=== PATIENT | female | born 1935 | race Caucasian/White ===

== ENCOUNTER 2018-02-16 05:31 | Inpatient (IN) ==
[2018-02-16] MEDS ORDERED: Chlorhexidine Gluconate 2% 1 Pack (2 Cloths) TOPICAL ONE (05:57)
[2018-02-16] MEDS ORDERED: Metoprolol Tartrate 25 MG Tablet PO ONE (05:57)
[2018-02-16] MEDS ORDERED: Sodium Chlor 0.9% Inj 500 ML IV.SIG SCH (06:00)
[2018-02-16] MEDS ORDERED: Mupirocin 2% Nasal Oint Topical Syringe EACH NARE SCH (06:30)
[2018-02-16] MEDS ORDERED: Aspirin 325 MG Tablet PO SCH (06:30)
[2018-02-16] MEDS ORDERED: Chlorhexidine Gluconate 2% 1 Pack (2 Cloths) TOPICAL SCH (06:30)
[2018-02-16] MEDS ORDERED: ceFAZolin 2 GM Premix Inj 2 GM/50 ML PIGGYBACK IV.SIG SCH (07:00)
--- NOTE | 2018-02-16 07:38 | P.HPCA ---
History of Present Illness Service: Cardiology Primary Care Physician: Do Paulina Mariee Chief Complaint: Aortic stenosis History of Present Illness: This is an 82-year-old female who presents with symptoms of increased shortness of breath over the course of the last year. Patient had transthoracic echocardiogram performed on October 22, 2017 which revealed normal left ventricular systolic function with severe aortic valve stenosis and aortic valve area 0.76 cm. Patient underwent cardiac catheterization in preoperative workup which revealed right coronary artery stenosis and underwent percutaneous coronary intervention with drug-eluting stents to the right coronary artery. Patient was evaluated by cardiothoracic surgery and based on STS score was considered high risk for surgical aortic valve replacement. Risk benefits alternatives were discussed with the patient regarding transcatheter approach for bioprosthetic aortic valve replacement, and the patient is agreeable to proceed. Patient is now admitted here today for elective transcatheter aortic valve replacement - Diagnosis (1) Aortic stenosis (2) Diastolic CHF (3) Diabetes mellitus type 2 in nonobese Inpatient Certification: I certify that the inpatient services were ordered in accordance with Medicare regulations governing the order. This includes certification that hospital inpatient services are reasonable and necessary and in the case of services not specified as inpatient-only under 42 CFR 419.22(n), that they are appropriately provided as inpatient services in accordance to with the 2-midnight benchmark under 43 CFR 412.3(e) Estimated Total Length of Stay (Days): 3 Plans for Post Hospital Care: Home Review of Systems All other systems reviewed negative except as stated in HPI Respiratory: Reports shortness of breath PMFSH - History History Provided By: Patient - Medical History Medical History: Medical History (Last Updated 02/16/18 @ 07:33 by Mau Rico MD) Aortic valve regurgitation (Acute) Severe aortic valve stenosis (Acute) Obstructive sleep apnea (Acute) Diabetes mellitus type 2 in nonobese (Acute) Hypothyroid (Acute) Hyperlipidemia (Acute) Hypertension (Acute) Chronic diastolic (congestive) heart failure Chronic kidney disease, stage II (mild) FH: cholecystectomy FH: mastectomy History of breast cancer NYHA class 3 heart failure with preserved ejection fraction - Surgical History Surgical History: Surgical History (Last Updated 02/16/18 @ 07:33 by Mau Rico MD) H/O bilateral mastectomy (Acute) History of appendectomy History of percutaneous coronary intervention Hx of tonsillectomy - Family History Family History: Family History (Last Updated 02/16/18 @ 07:30 by Mau Rico MD) Other Aortic valve disease Family history of cancer - Social History I have reviewed the patient's Social History: Yes - Tobacco History Tobacco Use In Past 30 Days: No Smoking Status: Never smoker - Alcohol History How Often Do You Have a Drink Containing Alcohol: Never Medications and Allergies Active Medications: Active Medications Aspirin (Aspirin) 325 mg PO [employer]NAL COMMUNICATIONS SPECIALIST [facility] Stop: 02/19/18 06:19 Last Admin: 02/16/18 06:46 Dose: Not Given Chlorhexidine Gluconate (Chlorhexidine 2% Cloth) 3 pack TOPICAL INTERNAL COMMUNICATIONS SPECIALIST [facility] Stop: 02/19/18 06:19 Sodium Chloride (Ns Inj) 500 mls @ 30 mls/hr IV.SIG .Q10H [facility] Cefazolin Sodium/Dextrose (Ancef 2 Gm Premix Inj) 2 gm in 50 mls @ 100 mls/hr IV.SIG ONCE [facility] Stop: 02/19/18 06:19 Sodium Chloride (Ns Inj) 1,000 mls @ 125 mls/hr IV.CONT .Q8H [facility] Mupirocin (Bactroban 2% Nasal Oint) 1 applicatio EACH NARE INTERNAL COMMUNICATIONS SPECIALIST [facility] Stop: 02/19/18 06:19 Povidone Iodine (Betadine 5% Antisepsis Kit) 1 applicatio TOPICAL INTERNAL COMMUNICATIONS SPECIALIST [facility] Stop: 02/19/18 06:19 Allergies Allergy/AdvReac Type Severity Reaction Status Date / Time No Known Allergies Allergy Verified 02/16/18 05:43 Home Medications Medication Instructions Recorded Confirmed Type atorvastatin 20 mg PO DAILY 01/19/18 02/16/18 History gabapentin 100 mg PO TID 01/19/18 02/16/18 History glipizide 10 mg PO DAILY 01/19/18 02/16/18 History letrozole 2.5 mg PO DAILY 01/19/18 02/16/18 History levothyroxine 137 mcg PO DAILY 01/19/18 02/16/18 History lisinopril-hydrochlorothiazide 1 tab PO DAILY 01/19/18 02/16/18 History loratadine [Claritin] 10 mg PO DAILY 01/19/18 02/16/18 History metformin 1,000 mg PO BID 01/19/18 02/16/18 History potassium chloride [Klor-Con 10] 10 meq PO DAILY 01/19/18 02/16/18 History Exam Vital signs: Vital Signs 02/16/18 06:18 Temperature 97.8 F Pulse Rate 84 Respiratory Rate 18 Blood Pressure 130/82 Pulse Oximetry 92 L Intake & Output 02/15/18 02/16/18 02/16/18 18:59 06:59 18:59 Weight 79.3 kg Other: Weight On Admission 79.3 kg - Constitutional mild distress - Routine HEENT Exam Head: Present: normocephalic Eye: Present: EOMI, PERRL ENT: Present: mucous membranes moist - Routine Neck Exam Absent: JVD, carotid bruit - Routine Respiratory Exam Present: CTA bilaterally - Routine Cardiovascular Exam Present: RRR, S1, S2, murmur - Routine Abdominal Exam Present: soft, normoactive bowel sounds - Routine Extremities Exam Present: full ROM. Absent: edema - Routine Skin Exam Absent: cyanosis - Routine Neurological Exam Present: alert, oriented X3, CN II-XII intact, sensory deficit, motor deficit Results Intake and Output 02/15/18 02/16/18 02/16/18 22:59 06:59 14:59 Other: Weight 79.3 kg Weight On Admission 79.3 kg EKG interpretations - Dysrhythmias Sinus rhythms and dysrhythmias: sinus rhythm Caprini VTE Risk Assessment Caprini VTE Risk Assessment: Moderate/High Risk (score >= 2) Caprini Risk Assessment Model: Point Value = 1 Point Value = 2 Point Value = 3 Point Value = 5 Age 41-60 Minor surgery BMI > 25 kg/m2 Swollen legs Varicose veins or History of unexplained or recurrent spontaneous Oral contraceptives or hormone replacement Sepsis (< 1 month) Serious lung disease, including pneumonia (< 1 month) Abnormal pulmonary function Acute myocardial infarction Congestive heart failure (< 1 month) History of inflammatory bowel disease Medical patient at bed rest Age 61-74 Arthroscopic surgery Major open surgery (> 45 min) Laparoscopic surgery (> 45 min) Malignancy Confined to bed (> 72 hours) Immobilizing plaster cast Central venous access Age >= 75 History of VTE Family history of VTE Factor V Leiden Prothrombin [id number] Lupus anticoagulant Anticardiolipin antibodies Elevated serum homocysteine Heparin-induced thrombocytopenia Other congenital or acquired thrombophilia Stroke (< 1 month) Elective arthroplasty Hip, pelvis, or leg fracture Acute spinal cord injury (< 1 month) Prophylaxis Regimen: Total Risk Factor Score Risk Level Prophylaxis Regimen 0-1 Low Early ambulation 2 Moderate Order ONE of the following: *Sequential Compression Device (SCD) *Heparin 5000 units SQ BID 3-4 Higher Order ONE of the following medications: *Heparin 5000 units SQ TID *Enoxaparin/Lovenox 40 mg SQ daily (WT < 150 kg, CrCl > 30 mL/min) *Enoxaparin/Lovenox 30 mg SQ daily (WT < 150 kg, CrCl > 10-29 mL/min) *Enoxaparin/Lovenox 30 mg SQ BID (WT < 150 kg, CrCl > 30 mL/min) AND/OR *Sequential Compression Device (SCD) 5 or more Highest Order ONE of the following medications: *Heparin 5000 units SQ TID (Preferred with Epidurals) *Enoxaparin/Lovenox 40 mg SQ daily (WT < 150 kg, CrCl > 30 mL/min) *Enoxaparin/Lovenox 30 mg SQ daily (WT < 150 kg, CrCl > 10-29 mL/min) *Enoxaparin/Lovenox 30 mg SQ BID (WT < 150 kg, CrCl > 30 mL/min) AND *Sequential Compression Device (SCD) Assessment and Plan - Assessment (1) Aortic stenosis Code(s): I35.0 - Nonrheumatic aortic (valve) stenosis Status: Acute (2) Diastolic CHF Code(s): I50.30 - Unspecified diastolic (congestive) heart failure Status: Acute (3) Diabetes mellitus type 2 in nonobese Code(s): E11.9 - Type 2 diabetes mellitus without complications Status: Acute - Plan This is an 82-year-old female with diagnosis of severe aortic valve stenosis and worsening shortness of breath symptoms consistent with diastolic congestive heart failure and [place] [employer] Association functional class III. Patient is here today for elective transcatheter aortic valve replacement. Preoperative workup: STS score 8.97% [place] [employer] functional class III symptoms Body mass index 24.9 2/4 frailty score Electrocardiogram from January 20, 2018 shows normal sinus rhythm with nonspecific STT wave changes in the anterolateral leads Pulmonary function testing from January 20, 2018 reveals severe restrictive lung disease with an FEV1 of 0.64/41% Echocardiogram from October 22, 2017 shows peak jet velocity 4.59 m/s, mean gradient 48 mmHg, calculated aortic valve area 0.76 cm, left ventricular ejection fraction 60%, mild to moderate aortic regurgitation, trivial to mild mitral regurgitation, and mild tricuspid regurgitation Cardiac catheterization from January 19, 2018 shows mild to moderate left-sided coronary disease with 80% right coronary artery stenosis status post drug- eluting stent placement Computed tomographic analysis performed on January 20, 2018 shows a short annulus diameter of 23.2 mm, long anus diameter 34.5 mm, annular area 447.8 mm , sinus of Valsalva diameter 34.5 mm, sinotubular junction 23.9 mm, left coronary height 12.0 mm, right coronary height 18.6 mm, implant angle left anterior oblique 14/caudal 15, minimal luminal diameter in the right iliac system 6.7 mm, minimal luminal diameter in the left iliac system 6.4 mm Acute on chronic diastolic congestive heart failure with [place] [employer] functional class III symptoms in the setting of severe aortic valve stenosis. Plan for transcatheter aortic valve replacement with bioprosthetic 26 mm West S3 valve from a right common femoral approach. Respective alternatives were discussed with the patient patient understood and consented to proceed. (1) Aortic stenosis Qualifiers:
[2018-02-16] MEDS ORDERED: Lidocaine PF 1% Inj 5 ML Syringe OTHER ONE ×2 (07:45→16:00)
[2018-02-16] MEDS ORDERED: Glycopyrrolate Inj 1 MG/5 ML Syringe IV.PUSH ONE (07:45)
[2018-02-16] MEDS ORDERED: Neostigmine Inj 5 MG/5 ML Syringe IV.PUSH ONE (07:45)
[2018-02-16] MEDS ORDERED: Phenylephrine/NS 1000 MCG/10ML Syringe IV.PUSH ONE (07:45)
[2018-02-16] MEDS ORDERED: Heparin 10,000 UNITS/10 ML Vial (for IV use) ONE (08:47)
[2018-02-16] MEDS ORDERED: Protamine Sulfate Inj 50 MG/5 ML Vial ONE (08:47)
[2018-02-16] MEDS ORDERED: Iohexol Inj 350 MG/ML 100 ML Bottle (for RAD Diag) IVCONTRAST ONE (09:29)
--- NOTE | 2018-02-16 09:38 | P.OP ---
- Preoperative Diagnosis (1) Aortic stenosis (2) CAD (coronary artery disease) (3) Diastolic CHF - Postoperative Diagnosis (1) Aortic stenosis (2) CAD (coronary artery disease) (3) Diastolic CHF Date of procedure: 02/16/18 Procedure: Transcatheter aortic valve replacement with a 26 Alvaro 3 tissue valve Balloon aortic valvuloplasty with a 23 x 4 west balloon Percutaneous bilateral femoral artery access with Perclose closure on the right Left femoral venous access Aortography fluoroscopy Implants: 26 Alvaro 3 tissue valve Anesthesia: GETA Surgeon: Lelia Myers MD Co-surgeon - Dr. Elliott Vault Manager: Mau Rico Pathology: none sent Operation and Findings: The risks, benefits, complications, treatment options, and expected outcomes were discussed with the patient. The possibilities of reaction to medication, pulmonary aspiration, perforation of viscus, bleeding, recurrent infection, the need for additional procedures, failure to diagnose a condition, and creating a complication requiring transfusion or operation were discussed with the patient. The patient concurred with the proposed plan, giving informed consent. The site of surgery properly noted/marked. The patient was taken to hybrid operating room, identified as Diya Cyndie and the procedure verified as Transcatheter Aortic Valve Replacement. A Time Out was held and the above information confirmed. Standard monitoring lines and Soto catheter were placed. General anesthesia was induced. The patient was prepped and draped in a sterile fashion. Initially, left femoral arterial and venous access was acquired using a Seldinger percutaneous technique. The details of this procedure were dictated under separate note by cardiology. Once a pigtail was positioned in the aortic annulus and a temporary transvenous pacemaker wire was placed in the right ventricular apex and tested, the right femoral artery was accessed using a needle followed by a guidewire under fluoroscopic guidance. The patient was heparinized and 2 Perclose devices deployed for later closure. Serial dilators were used to dilate the right femoral artery to 14 Lithuanian caliber. The West sheath was then inserted up to the distal abdominal aorta. Arch aortography was performed to define the implant view. A balloon aortic valvuloplasty was then performed using a 23 x 4 balloon with the patient being paced at 180 beats per minute. A 26 West Alvaro 3 transcatheter aortic valve was then positioned in the annulus and deployed with the patient being paced at 180 beats per minute. Following deployment, the valve apparatus was withdrawn and arch aortography and GURINDER were performed to assess the valve. The valve had no significant perivalvular leaks. Gradients were then measured and the sheath was removed. Perclose sutures were secured with good hemostasis. Protamine was administered. Sterile dressings were placed. At the end of the operation, all sponge, instruments, and needle counts were correct. The patient was transferred to the CVICU in stable condition. Findings: No PVL post deployment Complications: none
[2018-02-16] MEDS ORDERED: Benzocaine/Menthol 15 MG/3.6 MG SF Lozenge BUCCAL PRN (09:42)
[2018-02-16] MEDS ORDERED: Acetaminophen 325 MG Tablet PO PRN (09:42)
[2018-02-16] MEDS ORDERED: Atropine Inj 1 MG/ML Vial IV.PUSH PRN (09:42)
[2018-02-16] MEDS ORDERED: Morphine Sulfate Inj 2 MG/ML Vial IV.PUSH PRN (09:42)
[2018-02-16] MEDS ORDERED: Sod Chloride 0.9% Inj 1,000 ML IV.CONT SCH (09:45)
--- NOTE | 2018-02-16 10:03 | P.OP ---
- Preoperative Diagnosis (1) Aortic stenosis - Postoperative Diagnosis (1) S/p TAVR (transcatheter aortic valve replacement), bioprosthetic Date of procedure: 02/16/18 Procedure: Transcatheter aortic valve replacement Surgeon: Mau Rico MD Justice Court Deputy Clerk: Lelia Myers Justice Court Deputy Clerk: Jeyson Elliott MD,Interventional cardiology Operation and Findings: Procedure performed: 1 fluoroscopy interpretation 2 left heart catheterization 3 descending aortography 4 transcatheter aortic valve replacement 5 transesophageal echocardiogram 6 temporary transvenous pacemaker placement 7 aortic valvuloplasty Method; Respect alternatives discussed with the patient patient understood and consented to the procedure. Patient was brought into the operating room placed on the operating table. Chest bilateral groins were prepped and draped. Left common femoral was accessed and a 5 Moldovan 11 cm sheath was placed on difficulty. Left femoral vein was accessed and a 5 Moldovan 11 cm sheath was placed without difficulty. Right femoral artery was accessed with a micropuncture sheath. Digital subtraction angiography confirmed appropriate placement. 8 Moldovan 11 cm sheath was placed. 2 Perclose devices were deployed in a pre-close manner. The West 14 Moldovan sheath was then advanced over the dilator to the level of the descending aorta Descending aortography: A 5 Moldovan pigtail catheter was advanced to left femoral artery sheath to the level of the descending aorta at the level of the valve. Ascending aortography was performed and a left anterior oblique 7 AP caudal view. All 3 cusps of the aortic valve were visualized and parallax. Temporary transvenous pacemaker placement: Right internal jugular venous access was obtained a 5 Moldovan balloontipped temporary transvenous pacemaker was advanced to the right ventricular apex under fluoroscopic guidance. Appropriate pacing was confirmed and utilized during the procedure. Transesophageal echocardiogram: See separate transcribed report Left heart catheterization: A 5 Moldovan AL-1 catheter was advanced to the ascending aorta a 260 cm 0.035 inch Amplatz straight tip wire was advanced across the aortic valve with some difficulty. The AL-1 catheter was advanced into the left ventricle. A 0.035 inch 260 cm standard J-wire was then advanced through the AL-1 catheter to the left ventricular apex and the AL-1 catheter removed. A 5 Moldovan pigtail catheter was then advanced over the J-wire into the left ventricular apex and the wire removed. A 0.035 inch Medtronic confiada a wire was then advanced through the pigtail catheter to left ventricular apex and the pigtail catheter removed. Aortic valvuloplasty: A 23 mm West aortic valvuloplasty balloon was then advanced over the Medtronic wire to the aortic valve. Under rapid pacing, aortic valvuloplasty was performed. Repeat transesophageal echocardiogram now revealed moderate to severe aortic valve insufficiency. Patient tolerated the valvular regurgitation with good hemodynamics. The valvuloplasty balloon was then removed leaving the wire in place. Transcatheter aortic valve replacement: A 26 mm bioprosthetic West Alvaro S3 valve was prepped and advanced through the right common femoral 14 Moldovan sheath to the level of the descending aorta. The balloon was pulled back into the stent. The entire device was advanced to the ascending aorta. The device was advanced across the aortic valve. Appropriate positioning was confirmed by fluoroscopy and descending aortography. Under rapid pacing, the aortic valve replacement was deployed. Repeat transesophageal echocardiogram revealed appropriate placement with no significant perivalvular leak and no significant transvalvular gradient. Repeat a descending aortography revealed appropriate filling of both the left and right coronary arteries. Conclusions: 1. Successful transcatheter aortic valve replacement with bioprosthetic West [place] S3 26 mm valve 2. Successful aortic valvuloplasty Plan: We will monitor patient closely for any postprocedural complications. Right common femoral sheath was removed with good hemostasis after deployment of 2 Perclose devices. The left common femoral artery and venous sheaths were closed with good hemostasis using 2 Vascade devices. We will consult electrophysiology, Dr. Hernandez, the patient has new left bundle branch block. Will monitor closely for need for permanent pacemaker and keep n.p.o. Will obtain a limited transthoracic echocardiogram. Patient is already on aspirin and Plavix.
[2018-02-16] MEDS ORDERED: fentaNYL Citrate Inj 100 MCG/2 ML Ampul ONE (10:18)
[2018-02-16] MEDS: Sod Chloride 0.9% Inj 1,000 ML IV.CONT SCH ×2 (10:33→14:15)
--- NOTE | 2018-02-16 12:50 | ECHRPT ---
Indication: CONCLUSIONS Normal left ventricular size. Mild concentric left ventricular hypertrophy. The left ventricular systolic function is normal with an estimated ejection fraction in the range of 60-65%. Trileaflet aortic valve. Mild thickening of the aortic valve leaflets. Diffuse calcification of the aortic valve. Trace aortic valve regurgitation. Severe aortic valve stenosis. Status post transcatheter aortic valve replacement BP: / HR: Rhythm: Technical Quality: Medications Complications Proc. Components The patient was brought to the diagnostic imaging area in a fasting state after o btaining an informed consent. The patient was premedicated with IV Versed and IV Fentanyl. The jacquard loom weaver ior pharynx was sprayed with Cetacaine spray and the patient was administered viscous Xylocaine 2 %. The GURINDER probe was passed into the posterior pharynx , mid-esophagus, distal esophagus, and gastric fundus. GURINDER was performed at multiple levels. The patient tolerated the procedure well and there were no complications. The patient was transferred to the floor in satisfactory condition.. FINDINGS LEFT VENTRICLE Normal left ventricular size. Mild concentric left ventricular hypertrophy. The left ventricular systolic function is normal with an estimated ejection fraction in the range of 60-65%. RIGHT VENTRICLE Normal right ventricular size and systolic function. LEFT ATRIUM The left atrial size is normal. RIGHT ATRIUM The right atrial size is normal. ATRIAL SEPTUM Normal atrial septal thickness without atrial level shunting by limited color doppler interrogation. AORTA The aortic root and proximal ascending aorta are normal in size on limited imaging. MITRAL VALVE Mild thickening of the mitral valve leaflets. Mild mitral valve regurgitation. AORTIC VALVE Trileaflet aortic valve. Mild thickening of the aortic valve leaflets. Diffuse calcification of the aortic valve. Trace aortic valve regurgitation. Severe aortic valve stenosis. Status post transcatheter aortic valve replacement TRICUSPID VALVE Structurally normal tricuspid valve. No tricuspid valve stenosis or regurgitation. VESSELS The inferior vena cava is normal in size. PULMONARY VALVE The pulmonary valve is not well visualized. PERICADIUM No pericardial effusion. Mau Rico MD, FACC (Electronically Signed) Final Date:16 February 2018 12:49
[2018-02-16] MEDS ORDERED: Heparin/NS PF Inj 500 ML ONE (16:29)
[2018-02-16] MEDS ORDERED: Isoproterenol HCl Inj 0.2 MG/ML Ampul ONE (16:54)
--- NOTE | 2018-02-16 16:57 | P.PCN ---
Date of procedure: 02/16/18 Pre-op diagnosis: severe aortic stenosis Procedure: Procedure: Transesophageal Echocardiography Diagnosis: Severe aortic stenosis Indications: Perioperative planning for transcatheter aortic valve replacement Consent: Obtained Anesthesia: General endotracheal anesthesia Description of the Procedure: The patient was sedated and mechanically ventilated. The echo probe was inserted easily and without resistance. At the conclusion of the procedure, the echo probe was removed. Please see detailed echocardiogram report for formal findings. Preliminary Findings (not confirmed): Pre-procedure: 1) normal biventricular function 2) left ventricular hypertrophy 3) severe aortic stenosis 4) no evidence of intra-atrial shunting by color flow Doppler 5) no pericardial effusion Post-procedure: 1) s/p transcatheter aortic valve replacement 2) no evidence of bioprosthetic valve stenosis 3) no perivalvular leak 4) no pericardial effusion The patient tolerated the procedure well with no hemodynamic instability. There were no immediate complications noted. There was minimal EBL. I personally performed the procedure.
[2018-02-16] MEDS ORDERED: Magnesium Sulfate Inj 2 GM in Sodium Chlor 0.9% Inj 96 ML IV.SIG PRN (17:06)
[2018-02-16] MEDS ORDERED: Potassium Phosphate Inj 30 MMOL in Sodium Chlor 0.9% Inj 250 ML IV.SIG PRN (17:06)
[2018-02-16] MEDS ORDERED: Potassium Chlor 40 mEq Premix 40 MEQ/100 ML PIGGYBACK IV.SIG PRN ×2 (17:06)
[2018-02-16] MEDS ORDERED: Sodium Phosphate Inj 30 MMOL in Sodium Chlor 0.9% Inj 250 ML IV.SIG PRN (17:06)
[2018-02-16] MEDS ORDERED: Potassium Chlor 20 mEq Premix 20 MEQ/100 ML PIGGYBACK IV.SIG PRN ×2 (17:06)
[2018-02-16] MEDS ORDERED: Magnesium Oxide 400 MG Tablet PO PRN (17:06)
[2018-02-16] MEDS ORDERED: Magnesium Sulfate Inj 4 GM in Sodium Chlor 0.9% Inj 92 ML IV.SIG PRN (17:06)
[2018-02-16] MEDS ORDERED: Potassium Chloride 25 MEQ Effervescent Tablet PO PRN (17:06)
[2018-02-16] MEDS ORDERED: Potassium Phosphate 500 MG Soluble Tablet PO PRN ×2 (17:06)
--- NOTE | 2018-02-16 17:06 | P.CONCC ---
History of Present Illness Service: Critical care medicine Consult date: 02/16/18 Requesting Physician: Jeyson Elliott Reason for Consult: perioperative management of medical comorbidities Primary Care Provider: Do Paulina Mariee Family Provider: Do Paulina Mariee Chief Complaint: Aortic stenosis History of Present Illness: This is an 82-year-old female with a history of severe aortic stenosis and bad obstructive sleep apnea. She states she does not use her CPAP at home. She arrived with significant dyspnea and required preoperative albuterol nebulization prior to induction of anesthesia. She underwent uncomplicated procedure and arrives extubated to the CVICU. Upon arrival she was still quite dyspneic and hypoxic. She was placed on noninvasive positive pressure ventilation which remained for approximately 2 hours post extubation. She was then weaned back to nasal cannula when she was completely aroused from anesthesia and improving from respiratory standpoint. Because of her arousal from anesthesia, complete review of systems is unobtainable. Brief review of systems is negative for chest pain, headache, shivering, sore throat. She did endorse mild shortness of breath which improved with noninvasive positive pressure ventilation. Review of Systems All other systems reviewed negative except as stated in HPI PMFSH - History History Provided By: Patient - Medical History Medical History: Medical History (Last Reviewed 02/16/18 @ 16:58 by Nelson Waters MD) Aortic valve regurgitation (Acute) Severe aortic valve stenosis (Acute) Obstructive sleep apnea (Acute) Diabetes mellitus type 2 in nonobese (Acute) Hypothyroid (Acute) Hyperlipidemia (Acute) Hypertension (Acute) Chronic diastolic (congestive) heart failure Chronic kidney disease, stage II (mild) FH: cholecystectomy FH: mastectomy History of breast cancer NYHA class 3 heart failure with preserved ejection fraction - Surgical History Surgical History: Surgical History (Last Reviewed 02/16/18 @ 16:58 by Nelson Waters MD) H/O bilateral mastectomy (Acute) History of appendectomy History of percutaneous coronary intervention Hx of tonsillectomy - Family History Family History: Family History (Last Reviewed 02/16/18 @ 16:58 by Nelson Waters MD) Other Aortic valve disease Family history of cancer - Social History I have reviewed the patient's Social History: Yes - Tobacco History Tobacco Use In Past 30 Days: No Smoking Status: Never smoker - Alcohol History How Often Do You Have a Drink Containing Alcohol: Never Medications and Allergies Active Medications: Active Medications Acetaminophen (Tylenol) 650 mg PO Q4H PRN PRN Reason: PAIN SCALE 1 TO 2 Stop: 02/17/18 09:41 Aspirin (Aspirin Chew) 81 mg PO DAILY [facility] Atropine Sulfate (Atropine Inj) 0.5 mg IV.PUSH UNSCH PRN PRN Reason: VAGAL REPONSE Stop: 02/17/18 09:41 Benzocaine/Menthol (Cepacol Max Strength) 1 lozenge BUCCAL Q3H PRN PRN Reason: SORE THROAT Stop: 02/17/18 09:41 Chlorhexidine Gluconate (Chlorhexidine 2% Cloth) 3 pack [employer] [facility] Stop: 02/19/18 06:19 Clonidine HCl (Catapres) 0.2 mg PO Q6H PRN PRN Reason: SBP > 160 mmHg Clopidogrel Bisulfate (Plavix) 75 mg PO DAILY [facility] Ferrous Sulfate (Ferosul) 325 mg PO DAILY [facility] Cefazolin Sodium/Dextrose (Ancef 2 Gm Premix Inj) 2 gm in 50 mls @ 100 mls/hr IV.SIG ONCE [facility] Stop: 02/19/18 06:19 Last Infusion: 02/16/18 08:35 Dose: Infused Sodium Chloride (Ns Inj) 1,000 mls @ 125 mls/hr IV.CONT .Q8H [facility] Last Admin: 02/16/18 14:15 Dose: Not Given Morphine Sulfate (Morphine Inj) 2 mg IV.PUSH Q30M PRN PRN Reason: BREAKTHROUGH PAIN Mupirocin (Bactroban 2% Nasal Oint) 1 applicatio EACH NARE [employer] [facility] Stop: 02/19/18 06:19 Ondansetron HCl (Zofran Inj) 4 mg IV.PUSH ONCE PRN PRN Reason: NAUSEA OR VOMITING Stop: 02/17/18 09:41 Oxycodone/Acetaminophen (Percocet 5/325 Mg) 1 tab PO Q6H PRN PRN Reason: PAIN SCALE 3 TO 5 Povidone Iodine (Betadine 5% Antisepsis Kit) 1 applicatio [employer] [facility] Stop: 02/19/18 06:19 Sodium Chloride (Ns Flush) 2 ml IV.FLUSH BID [facility] Sodium Chloride (Ns Flush) 2 ml IV.FLUSH PRN PRN PRN Reason: FLUSH AFTER USING IV ACCESS Allergies Allergy/AdvReac Type Severity Reaction Status Date / Time No Known Allergies Allergy Verified 02/16/18 05:43 Home Medications Medication Instructions Recorded Confirmed Type atorvastatin 20 mg PO DAILY 01/19/18 02/16/18 History gabapentin 100 mg PO TID 01/19/18 02/16/18 History glipizide 10 mg PO DAILY 01/19/18 02/16/18 History letrozole 2.5 mg PO DAILY 01/19/18 02/16/18 History levothyroxine 137 mcg PO DAILY 01/19/18 02/16/18 History lisinopril-hydrochlorothiazide 1 tab PO DAILY 01/19/18 02/16/18 History loratadine [Claritin] 10 mg PO DAILY 01/19/18 02/16/18 History metformin 1,000 mg PO BID 01/19/18 02/16/18 History potassium chloride [Klor-Con 10] 10 meq PO DAILY 01/19/18 02/16/18 History Physical Exam Vital signs: Vital Signs 02/16/18 06:18 02/16/18 10:00 02/16/18 11:00 Temperature 36.6 C 35.9 C L 36.0 C L Pulse Rate 84 87 76 Respiratory Rate 18 19 20 Blood Pressure 130/82 132/51 L 139/46 L Pulse Oximetry 92 L 92 L 94 L 02/16/18 11:17 02/16/18 12:00 02/16/18 14:25 Temperature Pulse Rate 81 Respiratory Rate 17 Blood Pressure 129/42 L Pulse Oximetry 92 L 94 L 98 02/16/18 15:00 02/16/18 15:21 Temperature Pulse Rate 90 91 H Respiratory Rate 17 Blood Pressure 134/51 L Pulse Oximetry 94 L Intake & Output 02/15/18 02/16/18 02/16/18 18:59 06:59 18:59 Intake Total 2750 / 2750 Output Total 305 / 305 Balance 2445 / 2445 Weight 79.3 kg Intake: IV 1050 / 1050 NS Inj 1,000 ML @ 125 mls/hr IV 450 / 450 .CONT .Q8H [facility] Rx#:[id number] NS Inj 500 ML @ 30 mls/hr IV. 500 / 500 SIG .Q10H [facility] Rx#:[id number] Ancef 2 GM Premix Inj 2 gm In 100 / 100 50 ml @ 100 mls/hr IV.SIG ONCE [facility] Rx#:[id number] Anesthesia Amount 1700 / 1700 Output: Estimated Blood Loss 5 / 5 Urine Amount (Catheter) 300 / 300 Indwelling Temp Sensing 300 / 300 Catheter Other: Weight On Admission 79.3 kg Narrative: GENERAL: Frail elderly female, lying in bed, arousing from anesthesia HEENT: Normocephalic. Atraumatic. Pupils equal, round, reactive, conjugate. Mucous membranes are moist NECK: Trachea is midline. There is no JVD. right IJ introducer sheath with transvenous pacer in place, site is clean and dry, dressing intact. CHEST: BiPAP in place. Unlabored. Mildly tachypneic. CARDIOVASCULAR: normal rate, regular rhythm. Transvenous pacer is set VVI at a backup rate of 50. not currently paced. ABDOMEN: Soft, nontender, nondistended. No guarding. MUSCULOSKELETAL: Pulses 2+. No peripheral edema. bilateral groin sites are clean and dry, no evidence of hematoma, dressing intact. distal LE pulses are Dopplerable. NEUROLOGICAL: RASS -2. Arousing from anesthesia. follows commands. moves all extremities. no focal deficits. - Urinary Catheter Management Indwelling Temp Sensing Catheter Cath placed during this visit: yes, but has since been removed by the nurse Reason for continuing: Decision to DC catheter Insertion date: 02/16/18 Removal date: 02/16/18 Removal time: 14:19 Assessment and Plan - Assessment and Plan Plan: Assessment: 78-year-old female with obstructive sleep apnea and severe aortic stenosis now postop day 0 status post transcatheter aortic valve replacement. Aggressive pulmonary toilet. Have encouraged patient to wear her CPAP at home as well as while she is inpatient. Maintenance IV fluids, close urine output monitoring, close groin checks and neurovascular monitoring. s/p TAVR today via groin access - anticoagulation per etiology teacher - mivf - close uop monitoring - frequent neurovascular checks - frequent groin checks - OOB after flat time Obstructive Sleep Apnea - cpap as needed - aggressive pulmonary toilet - wean o2 by nc for goal spo2 > 90% - OOB after flat time - nebs Hypertension - goal sbp < 180 - add back antihypertensives as needed Congestive Heart Failure secondary to valvulopathy - mivf today - may need diuresis beginning after POD 1 Hyperlipidemia - restart home statin Hypothyroidism - restart home synthroid Type II DM - ssi Stage II CKD - close uop monitoring - am bmp - mivf today advance diet after flat time SCDs AM CBC, BMP Critical care medicine will continue to follow while patient remains in the CVICU.
--- NOTE | 2018-02-16 17:11 | CATHPROC ---
Patient Name: Diya Agee Study #: [id number] Initial MD: David Hernandez Date of : 1935 Study Date: 02/16/2018 Cardiac Catheterization Report 02/16/2018 5:11:08 PM Financial #: [id number] 1 of 7 Patient Name: Diya Agee Study #: [id number] Initial MD: David Hernandez Date of : 1935 Study Date: 02/16/2018 Entire Case Report Patient Information Patient Name Diya Agee Date of 1935 Age 82 years Financial # [id number] Gender F AlternateID Lab Number 6 Room Number 446 Height (in) 61.0 Height (cm) 154.9 BSA 1.78 Weight (lbs) 174.0 Weight (kg) 79.1 Patient Address/Phone Number Home Address [facility] Home Phone Number [address] [facility] [id number] Study Information Study Number Admission Scheduled Start Study Start [id number] Feb 16 2018 5:31AM 02/16/2018 Feb 16 2018 4:32PM [place] Service Cardiac Pacer/ICD Admit Source Facility Department Other [facility] Physician and Clinical Staff Initial David Wagner Mechanical Insulator Enrique Bills,RT(R) Other Anesthesia, WRITING MANAGER Recorder Julissa Aden RN Scrub Joanie Singh RT(R) TECH2 02/16/2018 5:11:08 PM Financial #: [id number] 2 of 7 Patient Name: Diya Agee Study #: [id number] Initial MD: David Hernandez Date of : 1935 Study Date: 02/16/2018 Equipment Time Coat Padder Description Size Mfg Part Number Used/Scraped [id number] 16:38 [employer] BLANKET,WARM AIR CCL * Used *[id number] 16:38 [employer] PACK, CCL CUSTOM * Used *[id number] 16:38 MEDLINE PACER DAVIES, LIMB * 2530 *[id number] Used [id number] 16:38 [employer] CATHETER, JSN, QUAD FR 5 Used *[id number] 16:38 [employer] CATHETER, JSN, QUAD FR 5 Used *[id number] 16:38 [employer] CATHETER, JSN, QUAD FR 5 Used *[id number] 16:38 [employer] CATHETER, JSN, QUAD FR 5 Used *[id number] 16:38 [employer] SHEATH, EPS, FR5 FAST CATH FR 5 Used *[id number] 16:38 [employer] SHEATH, EPS, FR5 FAST CATH FR 5 Used *[id number] 16:38 [employer] SHEATH, EPS, FR5 FAST CATH FR 5 Used *[id number] 16:38 [employer] SHEATH, EPS, FR6 FAST CATH FR 6 Used *[id number] Insurance Information Insurance Payor Private Health Insurance Third Democrat Third Democrat Number [facility] Labs Hgb (g/dl) Hct (%) RBC (MIL/MM3) WBC (l/cumm) Platelets (thousands) 11.60-17.00 35.00-51.00 4.00-5.90 4.00-11.00 150.00-450.00 13.4 40.7 4.2 5.7 1 Glucose (mg/dl) BUN (mg/dl) Creatinine (mg/dl) BUN:Creatinine (1:x) 74.00-106.00 7.00-18.00 0.50-1.30 10.00-20.00 153 21 1.1 19.1 Na (meq/l) K (meq/l) Cl (meq/l) CO2 (mmol/L) Ca (mg/dl) 136.00-145.00 3.50-5.10 98.00-107.00 21.00-32.00 8.50-10.10 136 4.1 97 28.5 9.3 INR (PTT:PT) 0.90-1.10 1 02/16/2018 5:11:08 PM Financial #: [id number] 3 of 7 Patient Name: Diya Agee Study #: [id number] Initial MD: David Hernandez of : 1935 Study Date: 02/16/2018 CPK-MB (ng/ML) 0.50-3.60 Not Drawn Medication Medication Total Dose (Bolus/Oral) Medication Total Dosage/Unit 1% XYLOCAINE 20 mL Medications (Bolus/Oral) Medication Time Given Dosage/Unit Administered By Reason 1% XYLOCAINE 02/16/2018 4:45:36 PM 20 mL David Hernandez 20 mL 1% XYLOCAINE given in lab by David Hernandez in Right Groin via Subcutaneous. Initial Case Assessment Cardiovascular HR Rhythm NIBP Chest Pain 80 SR 148/58 0 Edema Present Skin color Skin None Normal Warm Dry Circulatory - Right Pulses Dorsalis Pedis 1 Scale (0,1,2,3,4,d) Circulatory - Left Pulses Dorsalis Pedis 1 Scale (0,1,2,3,4,d) Neurological State Oriented to time-place- Alert Moves all extremities person Respiration - General Respiration Rate SpO2 (%) O2 (lpm) (B/min) 18 99 6 02/16/2018 5:11:08 PM Financial #: [id number] 4 of 7 Patient Name: Diya Agee Study #: [id number] Initial MD: David Hernandez Date of : 1935 Study Date: 02/16/2018 Final Case Assessment Cardiovascular HR Rhythm NIBP Chest Pain 81 SR 92/38 0 Edema Present Skin color Skin None Normal Warm Dry Circulatory - Right Pulses Dorsalis Pedis 1 Scale (0,1,2,3,4,d) Circulatory - Left Pulses Dorsalis Pedis 1 Scale (0,1,2,3,4,d) Neurological State Oriented to time-place- Alert Moves all extremities person Respiration - General Respiration Rate SpO2 (%) O2 (lpm) (B/min) 18 100 8 Chronological Log Time Study Chronological Log 16:10:00 Patient arrived via Bed. 16:10:00 Patient Name, D.O.B, / Armband Verified By R.N. 16:10:15 Anesthesia at bedside. Assumes care of patient. SEE RECORDS FOR ALL MEDS AND VITALS DURING PROCEDURE 16:15:00 Verbal Stimulation=2 Physical Stimulation=2 Airway=2 Respiration=2 TOTAL=8. (0=absent, 1=li mited, 2=present) 16:25:00 Patient has been NPO for More than 6Hrs. 16:39:26 paged 16:39:45 Skin Breakdown- BILT GROIN SITES FROM TAVR 16:40:19 Patient Warmer Placed on the Table. 16:40:19 Disposable Defibrillator Pads Placed On Patient. 16:40:20 Lori Prominences Protected 16:40:21 IV Warmer Connected To Patient. 16:40:21 A # 20 IV was noted in the Jugular Vein (right). Grade = 0 02/16/2018 5:11:08 PM Financial #: [id number] 5 of 7 Patient Name: Diya Agee Study #: [id number] Initial MD: David Hernandez Date of : 1935 Study Date: 02/16/2018 16:40:32 MD responded 16:40:47 History and physical on the chart or being dictated. Assessment: Initial Case, HR=80 BPM, Rhythm=SR, JMSG=363/58 mmhg, Chest Pain=0, Edema=None, Col or=Normal, Skin = Warm, Dry Right Pulses: Rui Ped=1 16:40:48 Left Pulses: Rui Ped=1 Neurological: State=Alert, Ox3, ELDER Respiration: Resp=18 B/min, SpO2=99 %, O2=6 lpm 16:41:20 Table restraints applied according to hospital policy 16:41:22 Bilateral groins prepped with 2% chlorhexidine, and draped after a 3 minute waiting time. 16:41:38 MD arrived. Time Out. Correct patient, procedure, procedure equipment, site and side verified with physicia n present. Time 16:43:14 concurred by MD, individual staff and WRITING MANAGER. Time Out #2 - Consents verified, patient in correct position, all results are labled and displa yed, safety precautions 16:43:25 taken, antibiotics administered. Time out concurred by MD, individual staff and WRITING MANAGER in procedu re 16:43:47 Reference ECG taken 16:43:50 Case Start 16:45:36 20 mL 1% XYLOCAINE given in lab by David Hernandez in Right Groin via Subcutaneous. 16:45:59 Vascular access was obtained in the Fem Vein (right). 16:46:03 Vascular access was obtained in the Fem Vein (right). 16:46:03 Vascular access was obtained in the Fem Vein (right). 16:46:03 Vascular access was obtained in the Fem Vein (right). 16:46:07 A SHEATH, EPS, FR5 FAST CATH FR 5 was advanced into the Fem Vein (right) using the Modified Seldinger technique. 16:46:13 A SHEATH, EPS, FR5 FAST CATH FR 5 was advanced into the Fem Vein (right) using the Modified Seldinger technique. 16:46:16 A SHEATH, EPS, FR5 FAST CATH FR 5 was advanced into the Fem Vein (right) using the Modified Seldinger technique. 16:46:18 A SHEATH, EPS, FR6 FAST CATH FR 6 was advanced into the Fem Vein (right) using the Modified Seldinger technique. A CATHETER, JSN, QUAD FR 5 was advanced vis Fem Vein (right) and placed in the CS. Placement wa s visually 16:47:23 confirmed under fluoroscopy. A CATHETER, JSN, QUAD FR 5 was advanced vis Fem Vein (right) and placed in the HIS. Placement w as visually 16:47:29 confirmed under fluoroscopy. A CATHETER, JSN, QUAD FR 5 was advanced vis Fem Vein (right) and placed in the HRA. Placement w as visually 16:47:33 confirmed under fluoroscopy. A CATHETER, JSN, QUAD FR 5 was advanced vis Fem Vein (right) and placed in the RVA. Placement w as visually 16:47:39 confirmed under fluoroscopy. 16:49:30 EP STUDY IN PROGRESS 16:57:06 NO PACEMAKER NEEDED 16:57:33 Case End (Physician broke scrub) EP STUDY COMPLETE Assessment: Final Case, HR=81 BPM, Rhythm=SR, NIBP=92/38 mmhg, Chest Pain=0, Edema=None, Color= Normal, Skin = Warm, Dry Right Pulses: Rui Ped=1 16:57:43 Left Pulses: Rui Ped=1 Neurological: State=Alert, Ox3, ELDER Respiration: Resp=18 B/min, VwX9=610 %, O2=8 lpm 16:58:48 Catheter(s) removed without difficulty 16:58:55 Sheath removed; pressure applied to access site. BY JOANIE TEMP PACER REMOVED BY ENRIQUE VORA CAP APPLIED JUGULAR ACCESS LEFT IN PLACE WHEN TRANSFERED BACK [facility] 17:02:39 CVICU 02/16/2018 5:11:08 PM Financial #: [id number] 6 7 Patient Name: Diya Agee Study #: [id number] Initial MD: David Hernandez Date of : 1935 Study Date: 02/16/2018 17:04:42 CVICU called. Spoke to JAMES 17:06:55 Defibrillator and ground pads removed. Skin intact. 17:11:50 Patient moved to stretcher End Study - Contrast Media Used In Study Contrast Total Opened (mL) Total Used (mL) Total Wasted (mL) Unspecified 0 0 0 End Study - Maximum Contrast Load Max Contrast Load (mL) 359.5 End Study - Radiation Exposure Fluoro Time (minutes) 1.8 End Study - Patient Disposition Complications Transferred To Interventional Outcome No Telemetry Bed successful 02/16/2018 5:11:08 PM Financial #: [id number] 7 7
[2018-02-16] MEDS: Gabapentin 100 MG Capsule PO SCH (18:20)
--- NOTE | 2018-02-16 18:47 | MB ---
cc: David Hernandez MD DATE: 02/16/2018 REASON FOR CONSULTATION: Left bundle branch block post TAVR. HISTORY OF PRESENT ILLNESS: Mrs. Agee is an 82-year-old female with history of aortic stenosis, diabetes mellitus, diastolic heart failure, normal ejection fraction, status post transaortic valve replacement, developed left bundle branch block during the procedure. I was consulted for evaluation and management. The chart was reviewed. The patient was evaluated. ALLERGIES: NONE. SOCIAL HISTORY: Negative for smoking and drinking. FAMILY HISTORY: Noncontributory to her current medical condition. MEDICATIONS: Mrs. Agee is on: 1. Acetaminophen. 2. Aspirin 81 mg a day. 3. She is on Ancef 4. Clonidine 0.2 mg every 6 hours p.r.n. 5. Plavix 75 mg a day. 6. Lopressor p.r.n. 7. Percocet p.r.n. REVIEW OF SYSTEMS: Currently, she refers no chest pain, no chest discomfort. No fever. PHYSICAL EXAMINATION: GENERAL: Alert, fully oriented. VITAL SIGNS: Blood pressure 120/42, pulse 81, respiratory rate 18. LUNGS: Ventilated. CARDIOVASCULAR: S1, S2. No gallop. No murmur. ABDOMEN: Soft. No mass. No bruits. EXTREMITIES: No edema. DIAGNOSTIC DATA: 1. Electrocardiogram at baseline showed sinus rhythm, diffuse ST changes. Subsequent electrocardiogram post-CABG indicates sinus rhythm, left bundle branch block. 2. Electrocardiogram post-TAVR indicated sinus rhythm, left bundle branch block. LABORATORY DATA: Hemoglobin 11.4, white blood cell 10.4, potassium 3.8, creatinine 0.89. ASSESSMENT AND RECOMMENDATION: Mrs. Agee has a baseline sinus rhythm. Left bundle branch block post transcatheter aortic valve replacement. That may be an indication of disease and that can lead to syncope and AV block. The case extensively discussed with the patient and the Transcatheter aortic valve replacement Team. She is going to need an electrophysiology study. Based on the results of the study, decision about possible pacing support will be taken. The risks, the nature and the benefits of the procedure are clearly stated to her. Risks include pneumothorax, cardiac perforation, stroke and even . The patient understood and agreed to proceed. Procedure will be performed during hospitalization. MD Radha Moore , 05:01 PM , 05:10 PM
--- NOTE | 2018-02-16 20:04 | ECG ---
Date Performed: 02/16/2018 Time Performed: 10:35:30 PTAGE: 82 years EKG: Sinus rhythm Left bundle branch block Abnormal ECG NO PREVIOUS TRACING DOCTOR: Gia Meyer Interpretating Date/Time 02/16/2018 20:02:49
--- NOTE | 2018-02-16 20:20 | ECG ---
Date Performed: 02/16/2018 Time Performed: 06:15:46 PTAGE: 82 years EKG: Sinus rhythm . Diffuse T wave changes Abnormal ECG PREVIOUS TRACING : 01/19/2018 08.00 Since the previous tracing, no significant change noted DOCTOR: Gia Meyer Interpretating Date/Time 02/16/2018 20:19:00
[2018-02-17] MEDS: Sod Chloride 0.9% Inj 1,000 ML IV.CONT SCH ×2 (00:21→07:24)
[2018-02-17 05:35] LABS: Hematocrit 34.7 % (35.0-46.0); Hemoglobin 11.4 gm/dL (11.6-15.3); Mean Corpuscular HGB Conc 32.9 % (32.0-36.0); Mean Corpuscular Hemoglobin 31.8 pg (27.0-34.0); Mean Corpuscular Volume 96.7 fL (80.0-100.0); Mean Platelet Volume 8.6 fL (7.0-11.0); Platelet Count 146 th/mm3 (150-450); Red Blood Count 3.59 mil/mm3 (4.00-5.30); Red Cell Distribution Width 16.3 % (11.6-17.2); White Blood Count 6.7 th/mm3 (4.0-11.0)
[2018-02-17] MEDS ORDERED: Levothyroxine 112 MCG Tablet PO SCH (06:00)
[2018-02-17 06:07] LABS: Calcium 8.1 mg/dL (8.5-10.1); Carbon Dioxide 27.6 meq/L (21.0-32.0)
[2018-02-17] MEDS ORDERED: Dextrose 50% in Water 50 ML Vial IV.PUSH PRN (07:32)
[2018-02-17 07:34] VITALS: RESP 16
--- NOTE | 2018-02-17 07:37 | MA ---
cc: David Hernandez MD DATE: 02/16/2018 TYPE OF STUDY: Electrophysiology study and CS cannulation. INDICATIONS: Ms. Agee is an 82-year-old female status post TAVR, developed a left bundle branch block, referred to undergo electrophysiology study. The risks, the nature and the benefits of the procedure are clearly stated to her. Risks include pneumothorax, cardiac perforation, stroke, need for open heart surgery and even . The patient understood and agreed to proceed. PROCEDURE: After written informed consent was obtained, the patient was brought to the EP lab where she was prepped and draped in the usual sterile fashion. Conscious sedation was initiated and maintained throughout the procedure by the anesthesiologist. Once sedation was verified, the right inguinal area was anesthetized with 2% Xylocaine. Using modified Seldinger technique, the left femoral vein was cannulated on 4 occasions, 4 guidewires were advanced over the wire, two 5 and a 6-Mauritian Hemaquet were advanced. Then, under fluoroscopic guidance through the 5 and 6-Mauritian Hemaquets, four 5-Mauritian Lucy quadripolar electrophysiology catheters and wires were advanced and placed at His, right atrium, coronary sinus and right ventricular apex. Basic intervals were measured. They were within normal limits. At this point, atrial pacing protocol was performed. The Wenckebach was higher on 600 milliseconds. No tachyarrhythmia was induced. Next, ventricular pacing protocol was performed. There was VA conduction. No tachyarrhythmia was induced. At that point, the procedure was complete. All catheters were removed. The temporary transvenous pacemaker is going to be removed also. The patient is going to be transferred to the recovery room. No incident to report. The patient tolerated the procedure. Blood loss minimal. 1. Electrocardiogram: At baseline, the patient was in sinus. Post-procedure echocardiogram was unchanged. 2. Basic interval: Basic cycle length was around 790, AH at 76 and HV of 42 milliseconds. 3. Atrial pacing protocol: No tachyarrhythmia was induced. 4. Ventricular pacing protocol: No tachyarrhythmia was induced. CONCLUSION: 1. Negative electrophysiology study for supraventricular tachyarrhythmia. 2. Normal AV pablo conduction. RECOMMENDATION: The patient is going to be transferred back to the CV ICU. At this point, there is no need for pacing support. The patient can be discharged home whenever it is okay with the management team. MD DAVID Moore/ashleigh , 05:03 PM , 05:12 PM
--- NOTE | 2018-02-17 07:53 | P.DS ---
<Bronson Grady - Last Filed: 02/17/18 07:49> Date of admission: 02/16/18 05:31 Primary care physician: Do Paulina Mariee Attending physician on discharge: Mau Rico Anticipated date of discharge: 02/17/18 Brief History from admission: This is an 82-year-old female who presents with symptoms of increased shortness of breath over the course of the last year. Patient had transthoracic echocardiogram performed on October 22, 2017 which revealed normal left ventricular systolic function with severe aortic valve stenosis and aortic valve area 0.76 cm. Patient underwent cardiac catheterization in preoperative workup which revealed right coronary artery stenosis and underwent percutaneous coronary intervention with drug-eluting stents to the right coronary artery. Patient was evaluated by cardiothoracic surgery and based on STS score was considered high risk for surgical aortic valve replacement. Risk benefits alternatives were discussed with the patient regarding transcatheter approach for bioprosthetic aortic valve replacement, and the patient is agreeable to proceed. Patient is now admitted here today for elective transcatheter aortic valve replacement Patient update on day of discharge: Doing well overnight with no chest pain, shortness breath. Sitting up in chair , but able to lie flat with no issues. Satting well on 4 L O2, patient reports she has O2 at home that she does not use because she has not noticed it helping. No issues with groin access site. Limited echo today. DS: Medications - Discharge Medications Prescriptions: ferrous sulfate [FeroSul] 325 mg PO DAILY #30 tab DS: Summary Hospital Course: 82-year-old female with past medical history of severe aortic stenosis who is admitted for TAVR on 02/16/18. She did develop left bundle branch after procedure, had EP study 02/16 which was negative. Otherwise, uncomplicated perioperative course. - Time Spent with Patient Total time spent providing and/or coordinating discharge services: Greater than 30 minutes Exam Vital signs: Vital Signs 02/16/18 10:00 02/16/18 11:00 02/16/18 11:17 Temperature 96.7 F L 96.8 F L Pulse Rate 87 76 Respiratory Rate 19 20 Blood Pressure 132/51 L 139/46 L Pulse Oximetry 92 L 94 L 92 L 02/16/18 12:00 02/16/18 14:25 02/16/18 15:00 Temperature Pulse Rate 81 90 Respiratory Rate 17 17 Blood Pressure 129/42 L 134/51 L Pulse Oximetry 94 L 98 94 L 02/16/18 15:21 02/16/18 17:25 02/16/18 19:56 Temperature 97.6 F Pulse Rate 91 H 95 H Respiratory Rate 16 Blood Pressure 156/61 H Pulse Oximetry 97 94 L 02/16/18 20:00 02/16/18 23:00 02/17/18 00:00 Temperature 99.3 F 98.8 F Pulse Rate 100 H 105 H 105 H Respiratory Rate 18 16 Blood Pressure 130/53 L 130/55 L 119/36 L Pulse Oximetry 95 90 L 90 L 02/17/18 04:00 02/17/18 07:00 Temperature 98.6 F 98.4 F Pulse Rate 107 H 109 H Respiratory Rate 18 16 Blood Pressure 142/67 H 142/64 H Pulse Oximetry 97 96 Intake & Output 02/16/18 02/17/18 02/17/18 18:59 06:59 18:59 Intake Total 3250 / 3250 480 / 480 Output Total 1055 / 1055 300 / 300 Balance 2195 / 2195 180 / 180 Intake: IV 1550 / 1550 NS Inj 1,000 ML @ 125 mls/hr IV 950 / 950 .CONT .Q8H VALENTINO Rx#:[id number] NS Inj 500 ML @ 30 mls/hr IV. 500 / 500 SIG .Q10H VALENTINO Rx#:[id number] Ancef 2 GM Premix Inj 2 gm In 100 / 100 50 ml @ 100 mls/hr IV.SIG ONCE VALENTINO Rx#:[id number] Oral 480 / 480 Anesthesia Amount 1700 / 1700 Output: Urine 300 / 300 Estimated Blood Loss 5 / 5 Urine Amount (Catheter) 1050 / 1050 Indwelling Temp Sensing 1050 / 1050 Catheter Other: # Voids 1 # Bowel Movements 0 Narrative: GENERAL: Well-developed well-nourished. In no acute distress. NECK: No carotid bruits. No JVD. CARDIOVASCULAR: Regular rate and rhythm. Daniels valve sounds appreciated. RESPIRATORY: No accessory muscle use. Clear to auscultation. Breath sounds equal bilaterally. MUSCULOSKELETAL: No clubbing or cyanosis. No edema. Bilateral groin access site with no to minimal ecchymosis with no tenderness and femoral pulses intact. NEUROLOGICAL: Awake and alert. Normal speech. Results Procedures completed during hospitalization: TAVR 02/16/18 Electrophysiology study Labs on day of discharge: Labs from last 24 hours 02/17/18 02/17/18 02/16/18 04:45 04:45 05:38 WBC 6.7 RBC 3.59 L Hgb 11.4 L Hct 34.7 L MCV 96.7 MCH 31.8 MCHC 32.9 RDW 16.3 Plt Count 146 L MPV 8.6 Sodium 137 Potassium 4.0 Chloride 99 Carbon Dioxide 27.6 Anion Gap 10 BUN 14 Creatinine 1.03 H Estimated GFR 51 L Random Glucose 195 H Calcium 8.1 L MTS Gel Crossmatch See Detail Bld Prod Order Comment <Mau Rico - Last Filed: 02/17/18 08:04> Date of admission: 02/16/18 05:31 Primary care physician: Do Paulina Mariee DS: Diagnosis - Discharge Diagnosis (1) Aortic stenosis Status: Acute (2) Diastolic CHF Status: Acute (3) Diabetes mellitus type 2 in nonobese Status: Acute DS: Summary Hospital Course: acute on chronic diastolic CHF treated with IV lasix severe s/p TAVR EP study negative. no need for PPM chronic home O2 due to COPD ambulate today DC planning if doing well later this afternoon - Time Spent with Patient Total time spent providing and/or coordinating discharge services: 35 Exam Vital signs: Vital Signs 02/16/18 10:00 02/16/18 11:00 02/16/18 11:17 Temperature 96.7 F L 96.8 F L Pulse Rate 87 76 Respiratory Rate 19 20 Blood Pressure 132/51 L 139/46 L Pulse Oximetry 92 L 94 L 92 L 02/16/18 12:00 02/16/18 14:25 02/16/18 15:00 Temperature Pulse Rate 81 90 Respiratory Rate 17 17 Blood Pressure 129/42 L 134/51 L Pulse Oximetry 94 L 98 94 L 02/16/18 15:21 02/16/18 17:25 02/16/18 19:56 Temperature 97.6 F Pulse Rate 91 H 95 H Respiratory Rate 16 Blood Pressure 156/61 H Pulse Oximetry 97 94 L 02/16/18 20:00 02/16/18 23:00 02/17/18 00:00 Temperature 99.3 F 98.8 F Pulse Rate 100 H 105 H 105 H Respiratory Rate 18 16 Blood Pressure 130/53 L 130/55 L 119/36 L Pulse Oximetry 95 90 L 90 L 02/17/18 04:00 02/17/18 07:00 Temperature 98.6 F 98.4 F Pulse Rate 107 H 109 H Respiratory Rate 18 16 Blood Pressure 142/67 H 142/64 H Pulse Oximetry 97 96 Intake & Output 02/16/18 02/17/18 02/17/18 18:59 06:59 18:59 Intake Total 3250 / 3250 480 / 480 Output Total 1055 / 1055 300 / 300 Balance 2195 / 2195 180 / 180 Intake: IV 1550 / 1550 NS Inj 1,000 ML @ 125 mls/hr IV 950 / 950 .CONT .Q8H [facility] Rx#:[id number] NS Inj 500 ML @ 30 mls/hr IV. 500 / 500 SIG .Q10H VAL[facility]INO Rx#:[id number] Ancef 2 GM Premix Inj 2 gm In 100 / 100 50 ml @ 100 mls/hr IV.SIG ONCE VALENTINO Rx#:[id number] Oral 480 / 480 Anesthesia Amount 1700 / 1700 Output: Urine 300 / 300 Estimated Blood Loss 5 / 5 Urine Amount (Catheter) 1050 / 1050 Indwelling Temp Sensing 1050 / 1050 Catheter Other: # Voids 1 # Bowel Movements 0 Results Labs on day of discharge: Labs from last 24 hours 02/17/18 02/17/18 02/16/18 04:45 04:45 05:38 WBC 6.7 RBC 3.59 L Hgb 11.4 L Hct 34.7 L MCV 96.7 MCH 31.8 MCHC 32.9 RDW 16.3 Plt Count 146 L MPV 8.6 Sodium 137 Potassium 4.0 Chloride 99 Carbon Dioxide 27.6 Anion Gap 10 BUN 14 Creatinine 1.03 H Estimated GFR 51 L Random Glucose 195 H Calcium 8.1 L MTS Gel Crossmatch See Detail Bld Prod Order Comment Discharge Plan - Discharge Order Discharge Orders: Discharge Order (Routine); Ordered 02/17/18 Ordered By: Mau Rico Cardiology Clear for Discharge (Routine); Ordered 02/17/18 Ordered By: Mau Rico - Discharge Details Anticipated Discharge Date: 02/17/18 Discharge Comment: DC in afternoon if no events - Physicians Team Primary Care Provider: Do Paulina Mariee Attending Provider: Mau Rico Other Providers: David Hernandez MD ; Waters,Nelson S, MD - Rxs /Orders / Referrals /Forms Prescriptions: New ferrous sulfate [FeroSul] 325 mg (65 mg iron) Tablet 325 mg PO DAILY Qty: 30 RF: 1 Continue aspirin [Aspir-Low] 81 mg Tablet,Delayed Release (Dr/Ec) 81 mg PO DAILY Qty: 90 RF: 3 atorvastatin 20 mg Tablet 20 mg PO DAILY clopidogrel [Plavix] 75 mg Tablet 75 mg PO DAILY Qty: 90 RF: 3 gabapentin 100 mg Capsule 100 mg PO TID glipizide 10 mg Tablet 10 mg PO DAILY letrozole 2.5 mg Tablet 2.5 mg PO DAILY levothyroxine 137 mcg Tablet 137 mcg PO DAILY lisinopril-hydrochlorothiazide 10-12.5 mg Tablet 1 tab PO DAILY loratadine [Claritin] 10 mg Tablet 10 mg PO DAILY metformin 1,000 mg Tablet 1,000 mg PO BID metoprolol succinate 25 mg Tablet Extended Release 24 Hr 12.5 mg PO DAILY Qty: 90 RF: 3 potassium chloride [Klor-Con 10] 10 mEq Tablet Extended Release 10 meq PO DAILY Referrals: Do Paulina Mariee MD [Primary Care Provider] - See Instructions - Discharge Instructions Patient Printed Instructions: Transcatheter Aortic Valve Replacement (DC)
[2018-02-17] MEDS ORDERED: Insulin NovoLIN Regular Correctional Sugar Inj SQ SCH (08:00)
[2018-02-17] MEDS: Gabapentin 100 MG Capsule PO SCH ×2 (08:24→12:06)
[2018-02-17] MEDS: Insulin NovoLOG Aspart Correctional Sugar Inj SQ SCH ×2 (08:32→12:06)
[2018-02-17] MEDS ORDERED: Metoprolol Tartrate 25 MG Tablet PO SCH (09:00)
[2018-02-17] MEDS ORDERED: Lisinopril 10 MG Tablet PO SCH (09:00)
[2018-02-17] MEDS ORDERED: hydroCHLOROthiazide 25 MG Tablet PO SCH (09:00)
[2018-02-17] MEDS ORDERED: Loratadine 10 MG Tablet PO SCH (09:00)
[2018-02-17] MEDS ORDERED: Ferrous Sulfate 325 MG Tablet PO SCH (09:00)
[2018-02-17 11:07] VITALS: PULSE 107
[2018-02-17 11:12] VITALS: BP 138/62; TEMP 98.6; O2SAT 97
--- NOTE | 2018-02-17 11:37 | P.DCO ---
- Physical Therapy Order: Evaluate and treat, Improve ambulation, Strength and gait training - Case Management Consult Yes - Certification I have seen patient Diya Agee on 02/17/18. My clinical findings support the need for the requested home health care services because: Deconditioned with increased weakness I certify that my clinical findings support that this patient is homebound because: Post-op weakness
--- NOTE | 2018-02-17 12:07 | ECHRPT ---
Indication: HEART FAILURE, POST TAVR CONCLUSIONS BP: / HR: Rhythm: MEASUREMENTS (Male / Female) Normal Values Technical Quality: 2D ECHO LV Diastolic Diameter PLAX 3.4 cm 4.2 - 5.9 / 3.9 - 5.3 cm LV Systolic Diameter PLAX 2.8 cm IVS Diastolic Thickness 1.3 cm 0.6 - 1.0 / 0.6 - 0.9 cm LVPW Diastolic Thickness 1.2 cm 0.6 - 1.0 / 0.6 - 0.9 cm LV Relative Wall Thickness 0.7 RV Internal Dim ED PLAX 2.9 cm LVOT Diameter 1.5 cm LV Ejection Fraction MOD 4C 36.9 % LV Ejection Fraction 4C AL 37.9 % M-MODE Aortic Root Diameter MM 3.0 cm LA Systolic Diameter MM 4.3 cm LA Ao Ratio MM 1.4 AV Cusp Separation MM 1.6 cm DOPPLER AV Peak Velocity 282.0 cm/s AV Peak Gradient 31.8 mmHg AV Mean Gradient 17.7 mmHg AV Velocity Time Integral 35.0 cm LVOT Peak Velocity 108.8 cm/s LVOT Peak Gradient 4.7 mmHg LVOT Velocity Time Integral 14.8 cm AV Area Cont Eq vti 0.7 cm AV Area Cont Eq pk 0.6 cm TR Peak Velocity 175.0 cm/s TR Peak Gradient 12.3 mmHg Right Atrial Pressure 10.0 mmHg Pulmonary Artery Systolic Pressu 22.3 mmHg Right Ventricular Systolic Press 22.3 mmHg PV Peak Velocity 175.0 cm/s PV Peak Gradient 12.3 mmHg FINDINGS LEFT VENTRICLE Normal left ventricular size and wall thickness. The left ventricular systolic function is normal wi th an estimated ejection fraction in the range of 60-65%. Left ventricular diastolic function parameters a re normal. RIGHT VENTRICLE Normal right ventricular size and systolic function. LEFT ATRIUM The left atrial size is normal. RIGHT ATRIUM The right atrial size is normal. ATRIAL SEPTUM Normal atrial septal thickness without atrial level shunting by limited color doppler interrogation. AORTA The aortic root and proximal ascending aorta are normal in size on limited imaging. MITRAL VALVE Structurally normal mitral valve. No mitral valve stenosis or regurgitation. AORTIC VALVE Status post transcatheter aortic valve replacement, normally functioning No perivalvular leak TRICUSPID VALVE Structurally normal tricuspid valve. No tricuspid valve stenosis or regurgitation. PULMONARY VALVE No pulmonary valve regurgitation or stenosis. VESSELS The inferior vena cava is normal in size. PERICARDIUM No pericardial effusion. Mau Rico MD, FACC (Electronically Signed) Final Date:17 February 2018 12:06
--- NOTE | 2018-02-17 14:28 | P.PNCV ---
- Note Subjective/Hospital Course: 82-year-old female who presents with symptoms of increased shortness of breath over the course of the last year. Patient had transthoracic echocardiogram performed on October 22, 2017 which revealed normal left ventricular systolic function with severe aortic valve stenosis and aortic valve area 0.76 cm. Patient underwent cardiac catheterization in preoperative workup which revealed right coronary artery stenosis and underwent percutaneous coronary intervention with drug-eluting stents to the right coronary artery. Patient was evaluated by cardiothoracic surgery and based on STS score was considered high risk for surgical aortic valve replacement. Medical History: Aortic valve regurgitation , Severe aortic valve stenosis , Obstructive sleep apnea , Diabetes mellitus type 2 in nonobese Hypothyroid , Hyperlipidemia , Hypertension , Chronic diastolic (congestive) heart failure, Chronic kidney disease, stage II (mild) NYHA class 3 heart failure with preserved ejection fraction pt electively admitted for surgery 02/16 surgery : Transcatheter aortic valve replacement with a 26 Alvaro 3 tissue valve , Balloon aortic valvuloplasty with a 23 x 4 watts balloon Percutaneous bilateral femoral artery access with Perclose closure on the right , Left femoral venous access, Aortography fluoroscopy 02/17 pt doing fair agree on HHC , pt has some general weakness when ambulating VSS rhythm stable Objective: Vital Signs - 24 hr 02/16/18 14:25 02/16/18 15:00 02/16/18 15:21 Temperature Pulse Rate 90 91 H Respiratory Rate 17 Blood Pressure 134/51 L Pulse Oximetry 98 94 L 02/16/18 17:25 02/16/18 19:56 02/16/18 20:00 Temperature 97.6 F 99.3 F Pulse Rate 95 H 100 H Respiratory Rate 16 18 Blood Pressure 156/61 H 130/53 L Pulse Oximetry 97 94 L 95 02/16/18 23:00 02/17/18 00:00 02/17/18 04:00 Temperature 98.8 F 98.6 F Pulse Rate 105 H 105 H 107 H Respiratory Rate 16 18 Blood Pressure 130/55 L 119/36 L 142/67 H Pulse Oximetry 90 L 90 L 97 02/17/18 07:00 02/17/18 07:49 02/17/18 11:00 Temperature 98.4 F 98.6 F Pulse Rate 109 H 107 H Respiratory Rate 16 16 Blood Pressure 142/64 H 138/62 Pulse Oximetry 96 90 L 97 GENERAL: A&O x 3 SKIN: Warm and dry. bilateral groin dressing in place HEAD: Normocephalic. EYES: No scleral icterus. No injection or drainage. NECK: Supple, trachea midline. No JVD or lymphadenopathy. CARDIOVASCULAR: Regular rate and rhythm without murmurs, gallops, or rubs. RESPIRATORY: Breath sounds equal bilaterally. No accessory muscle use. GASTROINTESTINAL: Abdomen soft, non-tender, nondistended. MUSCULOSKELETAL: No cyanosis, or edema. BACK: Nontender without obvious deformity. No CVA tenderness. Labs: Laboratory Results - last 12 hr 02/16/18 02/17/18 02/17/18 05:38 04:45 04:45 WBC 6.7 RBC 3.59 L Hgb 11.4 L Hct 34.7 L MCV 96.7 MCH 31.8 MCHC 32.9 RDW 16.3 Plt Count 146 L MPV 8.6 Sodium 137 Potassium 4.0 Chloride 99 Carbon Dioxide 27.6 Anion Gap 10 BUN 14 Creatinine 1.03 H Estimated GFR 51 L POC Glucose Random Glucose 195 H Calcium 8.1 L MTS Gel Crossmatch See Detail 02/17/18 02/17/18 11:57 11:58 WBC RBC Hgb Hct MCV MCH MCHC RDW Plt Count MPV Sodium Potassium Chloride Carbon Dioxide Anion Gap BUN Creatinine Estimated GFR POC Glucose 431 H 253 H Random Glucose Calcium MTS Gel Crossmatch Result Diagrams: 02/17/18 04:45 02/17/18 04:45 Telemetry: NSR - Plan (1) Aortic stenosis (2) CAD (coronary artery disease) pt doing well , remains in NSR on nasal cannula some weakness with ambulation agree with [facility] pt stable to dc from [facility] further orders and plan deferred to Cardiology (1) Aortic stenosis Qualifiers: (2) CAD (coronary artery disease) Qualifiers: Coronary Disease-Associated Artery/Lesion type: [place] artery [place] vs. transplanted heart: [place] heart Associated angina: without angina Qualified Code(s): I25.10 - Atherosclerotic heart disease of [place] coronary artery without angina pectoris
--- NOTE | 2018-02-17 19:02 | ECG ---
Date Performed: 02/17/2018 Time Performed: 05:18:22 PTAGE: 82 years EKG: Sinus tachycardia. Lateral ST-T changes, cannot exclude myocardial ischemia Compared to pre vious tracing, Left bundle branch block no longer present Abnormal ECG PREVIOUS TRACING : 02/16/2018 10.35 DOCTOR: Osbaldo Eagle Interpretating Date/Time 02/17/2018 19:00:49
== END 2018-02-17 14:49 | disposition home or self-care (01) ==
LOC: HDIC 05:31 → HCVI 10:10
PROVIDERS: ADMIT Internal Medicine; ATTEND Internal Medicine
PROC: TAVRHYB (ICD-10-PCS; 2018-02-16 08:00)

== ENCOUNTER 2018-02-17 18:09 | Inpatient (IN) ==
[2018-02-17 18:51] LABS: Baso # (Auto) 0.1 th/mm3 (0.0-0.2); Eos # (Auto) 0.1 th/mm3 (0.0-0.4); Eos % (Auto) 1.3 % (0.0-4.0); Hematocrit 33.4 % (35.0-46.0); Hemoglobin 11.3 gm/dL (11.6-15.3); Lymph # (Auto) 1.6 th/mm3 (1.0-4.8); Lymph % (Auto) 20.8 % (9.0-44.0); Mean Corpuscular HGB Conc 33.9 % (32.0-36.0); Mean Corpuscular Hemoglobin 32.4 pg (27.0-34.0); Mean Corpuscular Volume 95.8 fL (80.0-100.0); Mean Platelet Volume 8.4 fL (7.0-11.0); Mono # (Auto) 1.4 th/mm3 (0.0-0.9); Mono % (Auto) 17.8 % (0.0-8.0); Neut # (Auto) 4.5 th/mm3 (1.8-7.7); Neut % (Auto) 59.1 % (16.0-70.0); Platelet Count 136 th/mm3 (150-450); Red Blood Count 3.48 mil/mm3 (4.00-5.30); Red Cell Distribution Width 16.2 % (11.6-17.2); White Blood Count 7.6 th/mm3 (4.0-11.0)
--- NOTE | 2018-02-17 19:07 | XR ---
EXAM DATE: 02/17/2018 6:49 PM EDT AGE/SEX: 82 years / Female INDICATIONS: Chest pain CLINICAL DATA: This is the patient's initial encounter. Patient reports that signs and symptoms have been present for 1 day and indicates a pain score of 0/10. MEDICAL/SURGICAL HISTORY: . Hypertension. Hypothyroidism. Carcinoma, breast. Aortic stenosis C HF Chronic kidney disease . Cholecystectomy. Appendectomy. COMPARISON: [facility] [place], CHEST 1V SINGLE AP, 01/19/2018. . FINDINGS: A single AP view of the chest demonstrates the lungs to be symmetrically aerated without evidence of mass, infiltrate or effusion. Minimal basilar atelectasis. The cardiomediastinal contours are unrema rkable. Osseous structures are intact. CONCLUSION: Minimal basilar atelectasis. No consolidation or significant effusion. Electronically signed by: Guillermo Toledo MD 02/17/2018 7:06 PM EDT
[2018-02-17 19:13] LABS: Albumin 3.1 g/dL (3.4-5.0); Anion Gap 7 meq/L (5-15); Aspartate Aminotransferase 25 U/L (15-37); Blood Urea Nitrogen 18 mg/dL (7-18); Calcium 8.1 mg/dL (8.5-10.1); Carbon Dioxide 27.6 meq/L (21.0-32.0); Chloride 98 meq/L (98-107); Glomerular Filtration Rate 48 mL/min (>89); Glucose,Random 149 mg/dL (74-106); Sodium 133 meq/L (136-145)
[2018-02-17 19:14] LABS: Alanine Aminotransferase 19 U/L (10-53)
--- NOTE | 2018-02-17 19:15 | ED ---
HPI General Chief Complaint: Altered Mental Status Stated Complaint: Confusion Time Seen by Provider: 02/17/18 18:29 Source: patient, family and EMS Mode of arrival: EMS Limitations: altered mental status History of Present Illness HPI narrative: confused and very weak, unable to ambulate on own. d/c today s/ p Mitral valve replacement, per ems pulse ox in 70's on scene. quickly upon arrival patient placed on bipap Related Data Home Medications Medication Instructions Recorded Confirmed atorvastatin 20 mg PO DAILY 01/19/18 02/17/18 gabapentin 100 mg PO TID 01/19/18 02/17/18 glipizide 10 mg PO DAILY 01/19/18 02/17/18 letrozole 2.5 mg PO DAILY 01/19/18 02/17/18 levothyroxine 137 mcg PO DAILY 01/19/18 02/17/18 lisinopril-hydrochlorothiazide 1 tab PO DAILY 01/19/18 02/17/18 loratadine [Claritin] 10 mg PO DAILY 01/19/18 02/17/18 metformin 1,000 mg PO BID 01/19/18 02/17/18 potassium chloride [Klor-Con 10] 10 meq PO DAILY 01/19/18 02/17/18 Previous Rx's Medication Instructions Recorded aspirin [Aspir-Low] 81 mg PO DAILY #90 tab 01/20/18 clopidogrel [Plavix] 75 mg PO DAILY #90 tab 01/20/18 metoprolol succinate 12.5 mg PO DAILY #90 tab 01/20/18 ferrous sulfate [FeroSul] 325 mg PO DAILY #30 tab 02/17/18 Allergies Allergy/AdvReac Type Severity Reaction Status Date / Time No Known Allergies Allergy Verified 02/16/18 05:43 Review of Systems ROS: all other systems reviewed are negative PMFSH History History Provided By: Patient Medical History Medical History Aortic valve regurgitation (Acute) Severe aortic valve stenosis (Acute) Obstructive sleep apnea (Chronic) Diabetes mellitus type 2 in nonobese (Acute) Hypothyroid (Acute) Hyperlipidemia (Chronic) Hypertension (Acute) Chronic diastolic (congestive) heart failure (Acute) Chronic kidney disease, stage II (mild) (Acute) FH: cholecystectomy (Acute) FH: mastectomy (Acute) History of breast cancer (Acute) NYHA class 3 heart failure with preserved ejection fraction (Acute) Surgical History Surgical History H/O bilateral mastectomy (Acute) History of appendectomy (Acute) History of percutaneous coronary intervention (Acute) Hx of tonsillectomy (Acute) S/P TAVR (transcatheter aortic valve replacement) (Acute) Family History Family History Other Aortic valve disease Family history of cancer Social History Social History Substance History: No History of Abuse Second Hand Smoke Exposure: No Smoking Status: Former smoker Tobacco Type: Cigarettes How Often Do You Have a Drink Containing Alcohol: Never Immunization History Tetanus Immunization: <5 Years Exam HENMT Head: normocephalic and atraumatic Nose: no nasal discharge and no epistaxis Mouth: moist mucous membranes Eyes Sclera: normal sclerae Pupils: PERRL Neck Neck: trachea midline and no JVD Resp Effort & Inspection: labored, respiratory distress and uses accessory muscles Auscultation: crackles and diminished lung sounds Cardio Rate: regular rate Rhythm: regular rhythm Heart Sounds: no murmurs GI Inspection: non-distended Palpation: soft, no hepatosplenomegaly and nontender Skin General: dry skin (warm) Neuro General: alert and awake Cranial Nerves: other Speech: speech normal Motor: no movement abnormalities noted Extrem General: normal to inspection, no clubbing, no cyanosis and no edema Psych Mood: congruent mood Affect: normal affect Judgment: judgment good Course Initial Documented Vital Signs Temperature 99.4 F 02/17/18 18:16 Pulse Rate 106 H 02/17/18 18:16 Respiratory Rate 17 02/17/18 18:16 Blood Pressure 150/67 H 02/17/18 18:16 Pulse Oximetry 89 L 02/17/18 18:16 Last Documented Vital Signs Temperature 98 F 02/24/18 04:00 Pulse Rate 87 02/24/18 10:00 Respiratory Rate 23 02/24/18 04:00 Blood Pressure 130/69 02/24/18 08:00 Pulse Oximetry 92 L 02/24/18 09:38 Critical Care Time Critical Care Time: Yes Total Critical Care Time: 30 Attestation: Aggregate critical care time was 30 minutes. Time to perform other separately billable procedures was not included in the critical care time. My time did not include minutes spent treating any other patients simultaneously or on activities that did not directly contribute to the patient's treatment. The services I provided to this patient were to treat and/or prevent clinically significant deterioration. I provided critical care services requiring my management, as noted below: Chart data review, documentation time, medication orders and management, vital sign assessments/reviewing monitor data, ordering and reviewing lab tests, ordering and interpreting/reviewing x-rays and diagnostic studies, care of the patient and discussion of the patient with the admitting physicians. Medical Decision Making MDM Narrative Medical decision making narrative: Patient received a stent on October 22, 2017 on the RCA. Found to have severe aortic valve stenosis with aortic valve regurgitation. On February 16 the patient electively admitted for T AVR which was successfully performed today in am. Patient was found to have some generalized weakness when ambulating on February 17 in the morning while on oxygen. patient was still apparently discharge from service in afternoon patient returns with dyspnea with hypoxemia requiring bipap CBC this afternoon shows no anemia, no leukocytosis, no evidence of any left shift however the patient does have some relative thrombocytopenia 136,000 which was 10,000 over from the 146,000 performed at February 17 4:45 in the morning. Electrolytes are within normal limits with the exception of decreased GFR of 48 and getting a 1.09, random glucose of 149 Currently CK-MB percentage normal at 0.9 elevated troponin of 0.67 elevated total CPK of 233 Medical Screen Exam Complete: Yes Emergency Medical Condition: Yes Medical Records Medical records reviewed: Yes I reviewed the patient's medical records. Lab Data Lab results reviewed: Yes I reviewed the patient's lab results. Result diagrams: 02/21/18 06:03 02/21/18 06:03 Lab Results 02/17/18 02/17/18 02/17/18 Range/Units 18:35 18:35 18:35 WBC 7.6 (4.0-11.0) th/mm3 RBC 3.48 L (4.00-5.30) mil/mm3 Hgb 11.3 L (11.6-15.3) gm/dL Hct 33.4 L (35.0-46.0) % MCV 95.8 (80.0-100.0) fL MCH 32.4 (27.0-34.0) pg MCHC 33.9 (32.0-36.0) % RDW 16.2 (11.6-17.2) % Plt Count 136 L (150-450) th/mm3 MPV 8.4 (7.0-11.0) fL Prelim Diff (Auto) Neut % (Auto) 59.1 (16.0-70.0) % Lymph % (Auto) 20.8 (9.0-44.0) % [place] % (Auto) 17.8 H (0.0-8.0) % Eos % (Auto) 1.3 (0.0-4.0) % Baso % (Auto) 1.0 (0.0-2.0) % Neut # (Auto) 4.5 (1.8-7.7) th/mm3 Lymph # (Auto) 1.6 (1.0-4.8) th/mm3 [place] # (Auto) 1.4 H (0.0-0.9) th/mm3 Eos # (Auto) 0.1 (0.0-0.4) th/mm3 Baso # (Auto) 0.1 (0.0-0.2) th/mm3 WBC Differential . Diff Scan Differential Comment Auto diff final Platelet Estimate (Normal) Platelet Morphology (Normal) PT (9.8-11.6) sec INR Ratio APTT (24.3-30.1) sec Puncture Site Patient Temperature O2 Saturation (90-100) % ABG pH (7.380-7.420) ABG pCO2 (38-42) mmHg ABG pO2 (61-120) mmHg ABG HCO3 (22-26) mmol/L ABG O2 Content (12.0-20.0) Vol % ABG Base Excess (-2-2) mmol/L ABG Methemoglobin (0-2) % Yann Test Hemoglobin (12.0-16.0) G/DL Carboxyhemoglobin (0-4) % O2 Delivery Device Liter Flow L/M Vent Setting Inspired O2 % Critical Value Sodium 133 L (136-145) meq/L Potassium 4.0 (3.5-5.1) meq/L Chloride 98 (98-107) meq/L Carbon Dioxide 27.6 (21.0-32.0) meq/L Anion Gap 7 (5-15) meq/L BUN 18 (7-18) mg/dL Creatinine 1.09 H (0.50-1.00) mg/dL Estimated GFR 48 L (>89) mL/min POC Glucose (68-110) mg/dl Random Glucose 149 H (74-106) mg/dL Calcium 8.1 L (8.5-10.1) mg/dL Phosphorus (2.5-4.9) mg/dL Magnesium (1.5-2.5) mg/dL Total Bilirubin 0.6 (0.2-1.0) mg/dL AST 25 (15-37) U/L ALT 19 (10-53) U/L Alkaline Phosphatase 59 (45-117) U/L Ammonia (11-32) mcmol/L Total Creatine Kinase 233 H (26-192) U/L CK-MB (CK-2) 2.0 (0.5-3.6) ng/mL CK-MB (CK-2) % 0.9 (0.0-4.0) % Troponin I 0.67 H* (0.02-0.05) ng/mL B-Natriuretic Peptide 69 (0-100) pg/mL Total Protein 6.8 (6.4-8.2) g/dL Albumin 3.1 L (3.4-5.0) g/dL TSH (0.358-3.740) uIU/mL Urine Color (Yellw/Straw) Urine Clarity (Clear) Urine pH (5.0-8.5) Ur Specific [place] (1.002-1.035) Urine Protein (Neg-Trace) mg/dL Urine Glucose (UA) (Negative) mg/dL Urine Ketones (Negative) mg/dL Urine Occult Blood (Negative) Urine Nitrate (Negative) Urine Bilirubin (Negative) Urine Urobilinogen (Less than 2) mg/dL Ur Leukocyte Esterase (Negative) Urine RBC (0-3) /hpf Urine WBC (0-5) /hpf Urine Mucus (Occasional) /lpf Micro UA Comment Ur Microscopic Review Urine Culture Comments Nasal Screen MRSA (PCR) (Negative) 02/17/18 02/17/18 02/18/18 Range/Units 19:55 21:45 02:45 WBC (4.0-11.0) th/mm3 RBC (4.00-5.30) mil/mm3 Hgb (11.6-15.3) gm/dL Hct (35.0-46.0) % MCV (80.0-100.0) fL MCH (27.0-34.0) pg MCHC (32.0-36.0) % RDW (11.6-17.2) % Plt Count (150-450) th/mm3 MPV (7.0-11.0) fL Prelim Diff (Auto) Neut % (Auto) (16.0-70.0) % Lymph % (Auto) (9.0-44.0) % [place] % (Auto) (0.0-8.0) % Eos % (Auto) (0.0-4.0) % Baso % (Auto) (0.0-2.0) % Neut # (Auto) (1.8-7.7) th/mm3 Lymph # (Auto) (1.0-4.8) th/mm3 [place] # (Auto) (0.0-0.9) th/mm3 Eos # (Auto) (0.0-0.4) th/mm3 Baso # (Auto) (0.0-0.2) th/mm3 WBC Differential Diff Scan Differential Comment Platelet Estimate (Normal) Platelet Morphology (Normal) PT 10.7 (9.8-11.6) sec INR 1.1 Ratio APTT 25.2 (24.3-30.1) sec Puncture Site Left radial Patient Temperature 98.6 O2 Saturation 94 (90-100) % ABG pH 7.36 L (7.380-7.420) ABG pCO2 52 H* (38-42) mmHg ABG pO2 85 (61-120) mmHg ABG HCO3 29 H (22-26) mmol/L ABG O2 Content 14.0 (12.0-20.0) Vol % ABG Base Excess 3.5 H (-2-2) mmol/L ABG Methemoglobin 0.3 (0-2) % Yann Test Present Hemoglobin 10.5 L (12.0-16.0) G/DL Carboxyhemoglobin 2.0 (0-4) % O2 Delivery Device Bipap Liter Flow L/M Vent Setting Ipap10/epap5 Inspired O2 40 % Critical Value Yes Sodium (136-145) meq/L Potassium (3.5-5.1) meq/L Chloride (98-107) meq/L Carbon Dioxide (21.0-32.0) meq/L Anion Gap (5-15) meq/L BUN (7-18) mg/dL Creatinine (0.50-1.00) mg/dL Estimated GFR (>89) mL/min POC Glucose 195 H (68-110) mg/dl Random Glucose (74-106) mg/dL Calcium (8.5-10.1) mg/dL Phosphorus (2.5-4.9) mg/dL Magnesium (1.5-2.5) mg/dL Total Bilirubin (0.2-1.0) mg/dL AST (15-37) U/L ALT (10-53) U/L Alkaline Phosphatase (45-117) U/L Ammonia (11-32) mcmol/L Total Creatine Kinase (26-192) U/L CK-MB (CK-2) (0.5-3.6) ng/mL CK-MB (CK-2) % (0.0-4.0) % Troponin I (0.02-0.05) ng/mL B-Natriuretic Peptide (0-100) pg/mL Total Protein (6.4-8.2) g/dL Albumin (3.4-5.0) g/dL TSH (0.358-3.740) uIU/mL Urine Color (Yellw/Straw) Urine Clarity (Clear) Urine pH (5.0-8.5) Ur Specific [place] (1.002-1.035) Urine Protein (Neg-Trace) mg/dL Urine Glucose (UA) (Negative) mg/dL Urine Ketones (Negative) mg/dL Urine Occult Blood (Negative) Urine Nitrate (Negative) Urine Bilirubin (Negative) Urine Urobilinogen (Less than 2) mg/dL Ur Leukocyte Esterase (Negative) Urine RBC (0-3) /hpf Urine WBC (0-5) /hpf Urine Mucus (Occasional) /lpf Micro UA Comment Ur Microscopic Review Urine Culture Comments Nasal Screen MRSA (PCR) (Negative) 02/18/18 02/18/18 02/18/18 Range/Units 03:20 03:38 03:38 WBC 9.4 (4.0-11.0) th/mm3 RBC 3.69 L (4.00-5.30) mil/mm3 Hgb 11.6 (11.6-15.3) gm/dL Hct 35.7 (35.0-46.0) % MCV 96.8 (80.0-100.0) fL MCH 31.3 (27.0-34.0) pg MCHC 32.3 (32.0-36.0) % RDW 16.2 (11.6-17.2) % Plt Count 117 L (150-450) th/mm3 MPV 8.6 (7.0-11.0) fL Prelim Diff (Auto) Slide review pending Neut % (Auto) 59.7 (16.0-70.0) % Lymph % (Auto) 18.5 (9.0-44.0) % [place] % (Auto) 19.9 H (0.0-8.0) % Eos % (Auto) 1.1 (0.0-4.0) % Baso % (Auto) 0.8 (0.0-2.0) % Neut # (Auto) 5.6 (1.8-7.7) th/mm3 Lymph # (Auto) 1.7 (1.0-4.8) th/mm3 [place] # (Auto) 1.9 H (0.0-0.9) th/mm3 Eos # (Auto) 0.1 (0.0-0.4) th/mm3 Baso # (Auto) 0.1 (0.0-0.2) th/mm3 WBC Differential . Diff Scan Auto diff confirmed Differential Comment . Platelet Estimate Low L (Normal) Platelet Morphology Normal (Normal) PT (9.8-11.6) sec INR Ratio APTT (24.3-30.1) sec Puncture Site Left brachial Patient Temperature 98.6 O2 Saturation 90 (90-100) % ABG pH 7.32 L (7.380-7.420) ABG pCO2 60 H* (38-42) mmHg ABG pO2 72 (61-120) mmHg ABG HCO3 30 H (22-26) mmol/L ABG O2 Content 13.9 (12.0-20.0) Vol % ABG Base Excess 4.2 H (-2-2) mmol/L ABG Methemoglobin 1.4 (0-2) % Yann Test Hemoglobin 10.9 L (12.0-16.0) G/DL Carboxyhemoglobin 1.9 (0-4) % O2 Delivery Device Bipap Liter Flow L/M Vent Setting 10ipap/5epap Inspired O2 40 % Critical Value Yes Sodium 135 L (136-145) meq/L Potassium 4.1 (3.5-5.1) meq/L Chloride 96 L (98-107) meq/L Carbon Dioxide 30.9 (21.0-32.0) meq/L Anion Gap 8 (5-15) meq/L BUN 18 (7-18) mg/dL Creatinine 1.04 H (0.50-1.00) mg/dL Estimated GFR 50 L (>89) mL/min POC Glucose (68-110) mg/dl Random Glucose 185 H (74-106) mg/dL Calcium 8.3 L (8.5-10.1) mg/dL Phosphorus (2.5-4.9) mg/dL Magnesium (1.5-2.5) mg/dL Total Bilirubin (0.2-1.0) mg/dL AST (15-37) U/L ALT (10-53) U/L Alkaline Phosphatase (45-117) U/L Ammonia (11-32) mcmol/L Total Creatine Kinase 239 H (26-192) U/L CK-MB (CK-2) 2.1 (0.5-3.6) ng/mL CK-MB (CK-2) % 0.9 (0.0-4.0) % Troponin I 0.53 H D (0.02-0.05) ng/mL B-Natriuretic Peptide (0-100) pg/mL Total Protein (6.4-8.2) g/dL Albumin (3.4-5.0) g/dL TSH (0.358-3.740) uIU/mL Urine Color (Yellw/Straw) Urine Clarity (Clear) Urine pH (5.0-8.5) Ur Specific [place] (1.002-1.035) Urine Protein (Neg-Trace) mg/dL Urine Glucose (UA) (Negative) mg/dL Urine Ketones (Negative) mg/dL Urine Occult Blood (Negative) Urine Nitrate (Negative) Urine Bilirubin (Negative) Urine Urobilinogen (Less than 2) mg/dL Ur Leukocyte Esterase (Negative) Urine RBC (0-3) /hpf Urine WBC (0-5) /hpf Urine Mucus (Occasional) /lpf Micro UA Comment Ur Microscopic Review Urine Culture Comments Nasal Screen MRSA (PCR) (Negative) 02/18/18 02/18/18 02/18/18 Range/Units 04:35 05:15 07:00 WBC (4.0-11.0) th/mm3 RBC (4.00-5.30) mil/mm3 Hgb (11.6-15.3) gm/dL Hct (35.0-46.0) % MCV (80.0-100.0) fL MCH (27.0-34.0) pg MCHC (32.0-36.0) % RDW (11.6-17.2) % Plt Count (150-450) th/mm3 MPV (7.0-11.0) fL Prelim Diff (Auto) Neut % (Auto) (16.0-70.0) % Lymph % (Auto) (9.0-44.0) % [place] % (Auto) (0.0-8.0) % Eos % (Auto) (0.0-4.0) % Baso % (Auto) (0.0-2.0) % Neut # (Auto) (1.8-7.7) th/mm3 Lymph # (Auto) (1.0-4.8) th/mm3 [place] # (Auto) (0.0-0.9) th/mm3 Eos # (Auto) (0.0-0.4) th/mm3 Baso # (Auto) (0.0-0.2) th/mm3 WBC Differential Diff Scan Differential Comment Platelet Estimate (Normal) Platelet Morphology (Normal) PT (9.8-11.6) sec INR Ratio APTT (24.3-30.1) sec Puncture Site Left radial Patient Temperature 98.6 O2 Saturation 89 L* (90-100) % ABG pH 7.35 L (7.380-7.420) ABG pCO2 57 H* (38-42) mmHg ABG pO2 65 (61-120) mmHg ABG HCO3 30 H (22-26) mmol/L ABG O2 Content 12.8 (12.0-20.0) Vol % ABG Base Excess 4.9 H (-2-2) mmol/L ABG Methemoglobin 1.2 (0-2) % Yann Test Present Hemoglobin 10.2 L (12.0-16.0) G/DL Carboxyhemoglobin 1.9 (0-4) % O2 Delivery Device Bipap Liter Flow L/M Vent Setting Ipap12/epap5 Inspired O2 40 % Critical Value Yes Sodium (136-145) meq/L Potassium (3.5-5.1) meq/L Chloride (98-107) meq/L Carbon Dioxide (21.0-32.0) meq/L Anion Gap (5-15) meq/L BUN (7-18) mg/dL Creatinine (0.50-1.00) mg/dL Estimated GFR (>89) mL/min POC Glucose (68-110) mg/dl Random Glucose (74-106) mg/dL Calcium (8.5-10.1) mg/dL Phosphorus (2.5-4.9) mg/dL Magnesium (1.5-2.5) mg/dL Total Bilirubin (0.2-1.0) mg/dL AST (15-37) U/L ALT (10-53) U/L Alkaline Phosphatase (45-117) U/L Ammonia (11-32) mcmol/L Total Creatine Kinase (26-192) U/L CK-MB (CK-2) (0.5-3.6) ng/mL CK-MB (CK-2) % (0.0-4.0) % Troponin I (0.02-0.05) ng/mL B-Natriuretic Peptide (0-100) pg/mL Total Protein (6.4-8.2) g/dL Albumin (3.4-5.0) g/dL TSH (0.358-3.740) uIU/mL Urine Color Yellow (Yellw/Straw) Urine Clarity Clear (Clear) Urine pH 5.0 (5.0-8.5) Ur Specific [place] 1.016 (1.002-1.035) Urine Protein Negative (Neg-Trace) mg/dL Urine Glucose (UA) Negative (Negative) mg/dL Urine Ketones Negative (Negative) mg/dL Urine Occult Blood Negative (Negative) Urine Nitrate Negative (Negative) Urine Bilirubin Negative (Negative) Urine Urobilinogen Less than 2 (Less than 2) mg/dL Ur Leukocyte Esterase Negative (Negative) Urine RBC 1 (0-3) /hpf Urine WBC 1 (0-5) /hpf Urine Mucus Few H (Occasional) /lpf Micro UA Comment Cath-culture not ind Ur Microscopic Review Not Reportable Urine Culture Comments Cath-cult not ind Nasal Screen MRSA (PCR) Not detected (Negative) 02/18/18 02/18/18 02/18/18 Range/Units 09:37 10:07 12:20 WBC (4.0-11.0) th/mm3 RBC (4.00-5.30) mil/mm3 Hgb (11.6-15.3) gm/dL Hct (35.0-46.0) % MCV (80.0-100.0) fL MCH (27.0-34.0) pg MCHC (32.0-36.0) % RDW (11.6-17.2) % Plt Count (150-450) th/mm3 MPV (7.0-11.0) fL Prelim Diff (Auto) Neut % (Auto) (16.0-70.0) % Lymph % (Auto) (9.0-44.0) % [place] % (Auto) (0.0-8.0) % Eos % (Auto) (0.0-4.0) % Baso % (Auto) (0.0-2.0) % Neut # (Auto) (1.8-7.7) th/mm3 Lymph # (Auto) (1.0-4.8) th/mm3 [place] # (Auto) (0.0-0.9) th/mm3 Eos # (Auto) (0.0-0.4) th/mm3 Baso # (Auto) (0.0-0.2) th/mm3 WBC Differential Diff Scan Differential Comment Platelet Estimate (Normal) Platelet Morphology (Normal) PT (9.8-11.6) sec INR Ratio APTT (24.3-30.1) sec Puncture Site Patient Temperature O2 Saturation (90-100) % ABG pH (7.380-7.420) ABG pCO2 (38-42) mmHg ABG pO2 (61-120) mmHg ABG HCO3 (22-26) mmol/L ABG O2 Content (12.0-20.0) Vol % ABG Base Excess (-2-2) mmol/L ABG Methemoglobin (0-2) % Yann Test Hemoglobin (12.0-16.0) G/DL Carboxyhemoglobin (0-4) % O2 Delivery Device Liter Flow L/M Vent Setting Inspired O2 % Critical Value Sodium (136-145) meq/L Potassium (3.5-5.1) meq/L Chloride (98-107) meq/L Carbon Dioxide (21.0-32.0) meq/L Anion Gap (5-15) meq/L BUN (7-18) mg/dL Creatinine (0.50-1.00) mg/dL Estimated GFR (>89) mL/min POC Glucose 179 H 167 H (68-110) mg/dl Random Glucose (74-106) mg/dL Calcium (8.5-10.1) mg/dL Phosphorus (2.5-4.9) mg/dL Magnesium (1.5-2.5) mg/dL Total Bilirubin (0.2-1.0) mg/dL AST (15-37) U/L ALT (10-53) U/L Alkaline Phosphatase (45-117) U/L Ammonia (11-32) mcmol/L Total Creatine Kinase 184 (26-192) U/L CK-MB (CK-2) (0.5-3.6) ng/mL CK-MB (CK-2) % (0.0-4.0) % Troponin I 0.36 H D (0.02-0.05) ng/mL B-Natriuretic Peptide (0-100) pg/mL Total Protein (6.4-8.2) g/dL Albumin (3.4-5.0) g/dL TSH 0.341 L (0.358-3.740) uIU/mL Urine Color (Yellw/Straw) Urine Clarity (Clear) Urine pH (5.0-8.5) Ur Specific [place] (1.002-1.035) Urine Protein (Neg-Trace) mg/dL Urine Glucose (UA) (Negative) mg/dL Urine Ketones (Negative) mg/dL Urine Occult Blood (Negative) Urine Nitrate (Negative) Urine Bilirubin (Negative) Urine Urobilinogen (Less than 2) mg/dL Ur Leukocyte Esterase (Negative) Urine RBC (0-3) /hpf Urine WBC (0-5) /hpf Urine Mucus (Occasional) /lpf Micro UA Comment Ur Microscopic Review Urine Culture Comments Nasal Screen MRSA (PCR) (Negative) 02/18/18 02/18/18 02/18/18 Range/Units 12:25 17:06 19:12 WBC (4.0-11.0) th/mm3 RBC (4.00-5.30) mil/mm3 Hgb (11.6-15.3) gm/dL Hct (35.0-46.0) % MCV (80.0-100.0) fL MCH (27.0-34.0) pg MCHC (32.0-36.0) % RDW (11.6-17.2) % Plt Count (150-450) th/mm3 MPV (7.0-11.0) fL Prelim Diff (Auto) Neut % (Auto) (16.0-70.0) % Lymph % (Auto) (9.0-44.0) % [place] % (Auto) (0.0-8.0) % Eos % (Auto) (0.0-4.0) % Baso % (Auto) (0.0-2.0) % Neut # (Auto) (1.8-7.7) th/mm3 Lymph # (Auto) (1.0-4.8) th/mm3 [place] # (Auto) (0.0-0.9) th/mm3 Eos # (Auto) (0.0-0.4) th/mm3 Baso # (Auto) (0.0-0.2) th/mm3 WBC Differential Diff Scan Differential Comment Platelet Estimate (Normal) Platelet Morphology (Normal) PT (9.8-11.6) sec INR Ratio APTT (24.3-30.1) sec Puncture Site Left radial Patient Temperature 98.6 O2 Saturation 88 L* (90-100) % ABG pH 7.35 L (7.380-7.420) ABG pCO2 54 H* (38-42) mmHg ABG pO2 66 (61-120) mmHg ABG HCO3 29 H (22-26) mmol/L ABG O2 Content 12.9 (12.0-20.0) Vol % ABG Base Excess 3.9 H (-2-2) mmol/L ABG Methemoglobin 1.4 (0-2) % Yann Test Present Hemoglobin 10.4 L (12.0-16.0) G/DL Carboxyhemoglobin 1.9 (0-4) % O2 Delivery Device Bipap Liter Flow L/M Vent Setting Ipap15/epap5 Inspired O2 40 % Critical Value Yes Sodium 135 L (136-145) meq/L Potassium 3.9 (3.5-5.1) meq/L Chloride 97 L (98-107) meq/L Carbon Dioxide 30.0 (21.0-32.0) meq/L Anion Gap 8 (5-15) meq/L BUN 17 (7-18) mg/dL Creatinine 0.91 (0.50-1.00) mg/dL Estimated GFR 59 L (>89) mL/min POC Glucose 146 H (68-110) mg/dl Random Glucose 138 H (74-106) mg/dL Calcium 8.3 L (8.5-10.1) mg/dL Phosphorus (2.5-4.9) mg/dL Magnesium (1.5-2.5) mg/dL Total Bilirubin (0.2-1.0) mg/dL AST (15-37) U/L ALT (10-53) U/L Alkaline Phosphatase (45-117) U/L Ammonia (11-32) mcmol/L Total Creatine Kinase (26-192) U/L CK-MB (CK-2) (0.5-3.6) ng/mL CK-MB (CK-2) % (0.0-4.0) % Troponin I (0.02-0.05) ng/mL B-Natriuretic Peptide (0-100) pg/mL Total Protein (6.4-8.2) g/dL Albumin (3.4-5.0) g/dL TSH (0.358-3.740) uIU/mL Urine Color (Yellw/Straw) Urine Clarity (Clear) Urine pH (5.0-8.5) Ur Specific [place] (1.002-1.035) Urine Protein (Neg-Trace) mg/dL Urine Glucose (UA) (Negative) mg/dL Urine Ketones (Negative) mg/dL Urine Occult Blood (Negative) Urine Nitrate (Negative) Urine Bilirubin (Negative) Urine Urobilinogen (Less than 2) mg/dL Ur Leukocyte Esterase (Negative) Urine RBC (0-3) /hpf Urine WBC (0-5) /hpf Urine Mucus (Occasional) /lpf Micro UA Comment Ur Microscopic Review Urine Culture Comments Nasal Screen MRSA (PCR) (Negative) 02/18/18 02/19/18 02/19/18 Range/Units 20:28 03:13 05:50 WBC 5.5 (4.0-11.0) th/mm3 RBC 3.16 L (4.00-5.30) mil/mm3 Hgb 10.2 L (11.6-15.3) gm/dL Hct 29.9 L (35.0-46.0) % MCV 94.5 (80.0-100.0) fL MCH 32.3 (27.0-34.0) pg MCHC 34.1 (32.0-36.0) % RDW 15.7 (11.6-17.2) % Plt Count 126 L (150-450) th/mm3 MPV 8.3 (7.0-11.0) fL Prelim Diff (Auto) Neut % (Auto) 60.4 (16.0-70.0) % Lymph % (Auto) 23.8 (9.0-44.0) % [place] % (Auto) 12.7 H (0.0-8.0) % Eos % (Auto) 2.1 (0.0-4.0) % Baso % (Auto) 1.0 (0.0-2.0) % Neut # (Auto) 3.3 (1.8-7.7) th/mm3 Lymph # (Auto) 1.3 (1.0-4.8) th/mm3 [place] # (Auto) 0.7 (0.0-0.9) th/mm3 Eos # (Auto) 0.1 (0.0-0.4) th/mm3 Baso # (Auto) 0.1 (0.0-0.2) th/mm3 WBC Differential . Diff Scan Differential Comment Auto diff final Platelet Estimate (Normal) Platelet Morphology (Normal) PT (9.8-11.6) sec INR Ratio APTT (24.3-30.1) sec Puncture Site Patient Temperature O2 Saturation (90-100) % ABG pH (7.380-7.420) ABG pCO2 (38-42) mmHg ABG pO2 (61-120) mmHg ABG HCO3 (22-26) mmol/L ABG O2 Content (12.0-20.0) Vol % ABG Base Excess (-2-2) mmol/L ABG Methemoglobin (0-2) % Yann Test Hemoglobin (12.0-16.0) G/DL Carboxyhemoglobin (0-4) % O2 Delivery Device Liter Flow L/M Vent Setting Inspired O2 % Critical Value Sodium (136-145) meq/L Potassium (3.5-5.1) meq/L Chloride (98-107) meq/L Carbon Dioxide (21.0-32.0) meq/L Anion Gap (5-15) meq/L BUN (7-18) mg/dL Creatinine (0.50-1.00) mg/dL Estimated GFR (>89) mL/min POC Glucose 161 H 137 H (68-110) mg/dl Random Glucose (74-106) mg/dL Calcium (8.5-10.1) mg/dL Phosphorus (2.5-4.9) mg/dL Magnesium (1.5-2.5) mg/dL Total Bilirubin (0.2-1.0) mg/dL AST (15-37) U/L ALT (10-53) U/L Alkaline Phosphatase (45-117) U/L Ammonia (11-32) mcmol/L Total Creatine Kinase (26-192) U/L CK-MB (CK-2) (0.5-3.6) ng/mL CK-MB (CK-2) % (0.0-4.0) % Troponin I (0.02-0.05) ng/mL B-Natriuretic Peptide (0-100) pg/mL Total Protein (6.4-8.2) g/dL Albumin (3.4-5.0) g/dL TSH (0.358-3.740) uIU/mL Urine Color (Yellw/Straw) Urine Clarity (Clear) Urine pH (5.0-8.5) Ur Specific [place] (1.002-1.035) Urine Protein (Neg-Trace) mg/dL Urine Glucose (UA) (Negative) mg/dL Urine Ketones (Negative) mg/dL Urine Occult Blood (Negative) Urine Nitrate (Negative) Urine Bilirubin (Negative) Urine Urobilinogen (Less than 2) mg/dL Ur Leukocyte Esterase (Negative) Urine RBC (0-3) /hpf Urine WBC (0-5) /hpf Urine Mucus (Occasional) /lpf Micro UA Comment Ur Microscopic Review Urine Culture Comments Nasal Screen MRSA (PCR) (Negative) 02/19/18 02/19/18 02/19/18 Range/Units 05:50 05:50 08:38 WBC (4.0-11.0) th/mm3 RBC (4.00-5.30) mil/mm3 Hgb (11.6-15.3) gm/dL Hct (35.0-46.0) % MCV (80.0-100.0) fL MCH (27.0-34.0) pg MCHC (32.0-36.0) % RDW (11.6-17.2) % Plt Count (150-450) th/mm3 MPV (7.0-11.0) fL Prelim Diff (Auto) Neut % (Auto) (16.0-70.0) % Lymph % (Auto) (9.0-44.0) % [place] % (Auto) (0.0-8.0) % Eos % (Auto) (0.0-4.0) % Baso % (Auto) (0.0-2.0) % Neut # (Auto) (1.8-7.7) th/mm3 Lymph # (Auto) (1.0-4.8) th/mm3 [place] # (Auto) (0.0-0.9) th/mm3 Eos # (Auto) (0.0-0.4) th/mm3 Baso # (Auto) (0.0-0.2) th/mm3 WBC Differential Diff Scan Differential Comment Platelet Estimate (Normal) Platelet Morphology (Normal) PT (9.8-11.6) sec INR Ratio APTT (24.3-30.1) sec Puncture Site Patient Temperature O2 Saturation (90-100) % ABG pH (7.380-7.420) ABG pCO2 (38-42) mmHg ABG pO2 (61-120) mmHg ABG HCO3 (22-26) mmol/L ABG O2 Content (12.0-20.0) Vol % ABG Base Excess (-2-2) mmol/L ABG Methemoglobin (0-2) % Yann Test Hemoglobin (12.0-16.0) G/DL Carboxyhemoglobin (0-4) % O2 Delivery Device Liter Flow L/M Vent Setting Inspired O2 % Critical Value Sodium 137 (136-145) meq/L Potassium 3.7 (3.5-5.1) meq/L Chloride 98 (98-107) meq/L Carbon Dioxide 30.0 (21.0-32.0) meq/L Anion Gap 9 (5-15) meq/L BUN 16 (7-18) mg/dL Creatinine 0.80 (0.50-1.00) mg/dL Estimated GFR 68 L (>89) mL/min POC Glucose 162 H (68-110) mg/dl Random Glucose 139 H (74-106) mg/dL Calcium 8.1 L (8.5-10.1) mg/dL Phosphorus 2.4 L (2.5-4.9) mg/dL Magnesium 2.1 (1.5-2.5) mg/dL Total Bilirubin 0.7 (0.2-1.0) mg/dL AST 25 (15-37) U/L ALT 24 (10-53) U/L Alkaline Phosphatase 62 (45-117) U/L Ammonia Less than 10 L (11-32) mcmol/L Total Creatine Kinase (26-192) U/L CK-MB (CK-2) (0.5-3.6) ng/mL CK-MB (CK-2) % (0.0-4.0) % Troponin I (0.02-0.05) ng/mL B-Natriuretic Peptide (0-100) pg/mL Total Protein 6.4 (6.4-8.2) g/dL Albumin 2.6 L (3.4-5.0) g/dL TSH (0.358-3.740) uIU/mL Urine Color (Yellw/Straw) Urine Clarity (Clear) Urine pH (5.0-8.5) Ur Specific [place] (1.002-1.035) Urine Protein (Neg-Trace) mg/dL Urine Glucose (UA) (Negative) mg/dL Urine Ketones (Negative) mg/dL Urine Occult Blood (Negative) Urine Nitrate (Negative) Urine Bilirubin (Negative) Urine Urobilinogen (Less than 2) mg/dL Ur Leukocyte Esterase (Negative) Urine RBC (0-3) /hpf Urine WBC (0-5) /hpf Urine Mucus (Occasional) /lpf Micro UA Comment Ur Microscopic Review Urine Culture Comments Nasal Screen MRSA (PCR) (Negative) 02/19/18 02/19/18 02/19/18 Range/Units 12:24 17:16 20:14 WBC (4.0-11.0) th/mm3 RBC (4.00-5.30) mil/mm3 Hgb (11.6-15.3) gm/dL Hct (35.0-46.0) % MCV (80.0-100.0) fL MCH (27.0-34.0) pg MCHC (32.0-36.0) % RDW (11.6-17.2) % Plt Count (150-450) th/mm3 MPV (7.0-11.0) fL Prelim Diff (Auto) Neut % (Auto) (16.0-70.0) % Lymph % (Auto) (9.0-44.0) % [place] % (Auto) (0.0-8.0) % Eos % (Auto) (0.0-4.0) % Baso % (Auto) (0.0-2.0) % Neut # (Auto) (1.8-7.7) th/mm3 Lymph # (Auto) (1.0-4.8) th/mm3 [place] # (Auto) (0.0-0.9) th/mm3 Eos # (Auto) (0.0-0.4) th/mm3 Baso # (Auto) (0.0-0.2) th/mm3 WBC Differential Diff Scan Differential Comment Platelet Estimate (Normal) Platelet Morphology (Normal) PT (9.8-11.6) sec INR Ratio APTT (24.3-30.1) sec Puncture Site Patient Temperature O2 Saturation (90-100) % ABG pH (7.380-7.420) ABG pCO2 (38-42) mmHg ABG pO2 (61-120) mmHg ABG HCO3 (22-26) mmol/L ABG O2 Content (12.0-20.0) Vol % ABG Base Excess (-2-2) mmol/L ABG Methemoglobin (0-2) % Yann Test Hemoglobin (12.0-16.0) G/DL Carboxyhemoglobin (0-4) % O2 Delivery Device Liter Flow L/M Vent Setting Inspired O2 % Critical Value Sodium (136-145) meq/L Potassium (3.5-5.1) meq/L Chloride (98-107) meq/L Carbon Dioxide (21.0-32.0) meq/L Anion Gap (5-15) meq/L BUN (7-18) mg/dL Creatinine (0.50-1.00) mg/dL Estimated GFR (>89) mL/min POC Glucose 179 H 199 H 283 H (68-110) mg/dl Random Glucose (74-106) mg/dL Calcium (8.5-10.1) mg/dL Phosphorus (2.5-4.9) mg/dL Magnesium (1.5-2.5) mg/dL Total Bilirubin (0.2-1.0) mg/dL AST (15-37) U/L ALT (10-53) U/L Alkaline Phosphatase (45-117) U/L Ammonia (11-32) mcmol/L Total Creatine Kinase (26-192) U/L CK-MB (CK-2) (0.5-3.6) ng/mL CK-MB (CK-2) % (0.0-4.0) % Troponin I (0.02-0.05) ng/mL B-Natriuretic Peptide (0-100) pg/mL Total Protein (6.4-8.2) g/dL Albumin (3.4-5.0) g/dL TSH (0.358-3.740) uIU/mL Urine Color (Yellw/Straw) Urine Clarity (Clear) Urine pH (5.0-8.5) Ur Specific [place] (1.002-1.035) Urine Protein (Neg-Trace) mg/dL Urine Glucose (UA) (Negative) mg/dL Urine Ketones (Negative) mg/dL Urine Occult Blood (Negative) Urine Nitrate (Negative) Urine Bilirubin (Negative) Urine Urobilinogen (Less than 2) mg/dL Ur Leukocyte Esterase (Negative) Urine RBC (0-3) /hpf Urine WBC (0-5) /hpf Urine Mucus (Occasional) /lpf Micro UA Comment Ur Microscopic Review Urine Culture Comments Nasal Screen MRSA (PCR) (Negative) 02/20/18 02/20/18 02/20/18 Range/Units 03:36 03:36 04:40 WBC 5.9 (4.0-11.0) th/mm3 RBC 3.37 L (4.00-5.30) mil/mm3 Hgb 10.8 L (11.6-15.3) gm/dL Hct 32.0 L (35.0-46.0) % MCV 95.0 (80.0-100.0) fL MCH 32.1 (27.0-34.0) pg MCHC 33.8 (32.0-36.0) % RDW 15.8 (11.6-17.2) % Plt Count 145 L (150-450) th/mm3 MPV 8.6 (7.0-11.0) fL Prelim Diff (Auto) Neut % (Auto) 68.7 (16.0-70.0) % Lymph % (Auto) 17.9 (9.0-44.0) % [place] % (Auto) 10.6 H (0.0-8.0) % Eos % (Auto) 2.0 (0.0-4.0) % Baso % (Auto) 0.8 (0.0-2.0) % Neut # (Auto) 4.1 (1.8-7.7) th/mm3 Lymph # (Auto) 1.1 (1.0-4.8) th/mm3 [place] # (Auto) 0.6 (0.0-0.9) th/mm3 Eos # (Auto) 0.1 (0.0-0.4) th/mm3 Baso # (Auto) 0.0 (0.0-0.2) th/mm3 WBC Differential . Diff Scan Differential Comment Auto diff final Platelet Estimate (Normal) Platelet Morphology (Normal) PT (9.8-11.6) sec INR Ratio APTT (24.3-30.1) sec Puncture Site Patient Temperature O2 Saturation (90-100) % ABG pH (7.380-7.420) ABG pCO2 (38-42) mmHg ABG pO2 (61-120) mmHg ABG HCO3 (22-26) mmol/L ABG O2 Content (12.0-20.0) Vol % ABG Base Excess (-2-2) mmol/L ABG Methemoglobin (0-2) % Yann Test Hemoglobin (12.0-16.0) G/DL Carboxyhemoglobin (0-4) % O2 Delivery Device Liter Flow L/M Vent Setting Inspired O2 % Critical Value Sodium 137 (136-145) meq/L Potassium 3.8 (3.5-5.1) meq/L Chloride 99 (98-107) meq/L Carbon Dioxide 28.0 (21.0-32.0) meq/L Anion Gap 10 (5-15) meq/L BUN 16 (7-18) mg/dL Creatinine 0.86 (0.50-1.00) mg/dL Estimated GFR 63 L (>89) mL/min POC Glucose 225 H (68-110) mg/dl Random Glucose 183 H (74-106) mg/dL Calcium 8.6 (8.5-10.1) mg/dL Phosphorus 2.2 L (2.5-4.9) mg/dL Magnesium 1.9 (1.5-2.5) mg/dL Total Bilirubin (0.2-1.0) mg/dL AST (15-37) U/L ALT (10-53) U/L Alkaline Phosphatase (45-117) U/L Ammonia (11-32) mcmol/L Total Creatine Kinase (26-192) U/L CK-MB (CK-2) (0.5-3.6) ng/mL CK-MB (CK-2) % (0.0-4.0) % Troponin I (0.02-0.05) ng/mL B-Natriuretic Peptide (0-100) pg/mL Total Protein (6.4-8.2) g/dL Albumin (3.4-5.0) g/dL TSH (0.358-3.740) uIU/mL Urine Color (Yellw/Straw) Urine Clarity (Clear) Urine pH (5.0-8.5) Ur Specific [place] (1.002-1.035) Urine Protein (Neg-Trace) mg/dL Urine Glucose (UA) (Negative) mg/dL Urine Ketones (Negative) mg/dL Urine Occult Blood (Negative) Urine Nitrate (Negative) Urine Bilirubin (Negative) Urine Urobilinogen (Less than 2) mg/dL Ur Leukocyte Esterase (Negative) Urine RBC (0-3) /hpf Urine WBC (0-5) /hpf Urine Mucus (Occasional) /lpf Micro UA Comment Ur Microscopic Review Urine Culture Comments Nasal Screen MRSA (PCR) (Negative) 02/20/18 02/20/18 02/20/18 Range/Units 08:42 12:29 18:10 WBC (4.0-11.0) th/mm3 RBC (4.00-5.30) mil/mm3 Hgb (11.6-15.3) gm/dL Hct (35.0-46.0) % MCV (80.0-100.0) fL MCH (27.0-34.0) pg MCHC (32.0-36.0) % RDW (11.6-17.2) % Plt Count (150-450) th/mm3 MPV (7.0-11.0) fL Prelim Diff (Auto) Neut % (Auto) (16.0-70.0) % Lymph % (Auto) (9.0-44.0) % [place] % (Auto) (0.0-8.0) % Eos % (Auto) (0.0-4.0) % Baso % (Auto) (0.0-2.0) % Neut # (Auto) (1.8-7.7) th/mm3 Lymph # (Auto) (1.0-4.8) th/mm3 [place] # (Auto) (0.0-0.9) th/mm3 Eos # (Auto) (0.0-0.4) th/mm3 Baso # (Auto) (0.0-0.2) th/mm3 WBC Differential Diff Scan Differential Comment Platelet Estimate (Normal) Platelet Morphology (Normal) PT (9.8-11.6) sec INR Ratio APTT (24.3-30.1) sec Puncture Site Patient Temperature O2 Saturation (90-100) % ABG pH (7.380-7.420) ABG pCO2 (38-42) mmHg ABG pO2 (61-120) mmHg ABG HCO3 (22-26) mmol/L ABG O2 Content (12.0-20.0) Vol % ABG Base Excess (-2-2) mmol/L ABG Methemoglobin (0-2) % Yann Test Hemoglobin (12.0-16.0) G/DL Carboxyhemoglobin (0-4) % O2 Delivery Device Liter Flow L/M Vent Setting Inspired O2 % Critical Value Sodium (136-145) meq/L Potassium (3.5-5.1) meq/L Chloride (98-107) meq/L Carbon Dioxide (21.0-32.0) meq/L Anion Gap (5-15) meq/L BUN (7-18) mg/dL Creatinine (0.50-1.00) mg/dL Estimated GFR (>89) mL/min POC Glucose 248 H 199 H 159 H (68-110) mg/dl Random Glucose (74-106) mg/dL Calcium (8.5-10.1) mg/dL Phosphorus (2.5-4.9) mg/dL Magnesium (1.5-2.5) mg/dL Total Bilirubin (0.2-1.0) mg/dL AST (15-37) U/L ALT (10-53) U/L Alkaline Phosphatase (45-117) U/L Ammonia (11-32) mcmol/L Total Creatine Kinase (26-192) U/L CK-MB (CK-2) (0.5-3.6) ng/mL CK-MB (CK-2) % (0.0-4.0) % Troponin I (0.02-0.05) ng/mL B-Natriuretic Peptide (0-100) pg/mL Total Protein (6.4-8.2) g/dL Albumin (3.4-5.0) g/dL TSH (0.358-3.740) uIU/mL Urine Color (Yellw/Straw) Urine Clarity (Clear) Urine pH (5.0-8.5) Ur Specific [place] (1.002-1.035) Urine Protein (Neg-Trace) mg/dL Urine Glucose (UA) (Negative) mg/dL Urine Ketones (Negative) mg/dL Urine Occult Blood (Negative) Urine Nitrate (Negative) Urine Bilirubin (Negative) Urine Urobilinogen (Less than 2) mg/dL Ur Leukocyte Esterase (Negative) Urine RBC (0-3) /hpf Urine WBC (0-5) /hpf Urine Mucus (Occasional) /lpf Micro UA Comment Ur Microscopic Review Urine Culture Comments Nasal Screen MRSA (PCR) (Negative) 02/20/18 02/21/18 02/21/18 Range/Units 19:42 05:19 05:21 WBC (4.0-11.0) th/mm3 RBC (4.00-5.30) mil/mm3 Hgb (11.6-15.3) gm/dL Hct (35.0-46.0) % MCV (80.0-100.0) fL MCH (27.0-34.0) pg MCHC (32.0-36.0) % RDW (11.6-17.2) % Plt Count (150-450) th/mm3 MPV (7.0-11.0) fL Prelim Diff (Auto) Neut % (Auto) (16.0-70.0) % Lymph % (Auto) (9.0-44.0) % [place] % (Auto) (0.0-8.0) % Eos % (Auto) (0.0-4.0) % Baso % (Auto) (0.0-2.0) % Neut # (Auto) (1.8-7.7) th/mm3 Lymph # (Auto) (1.0-4.8) th/mm3 [place] # (Auto) (0.0-0.9) th/mm3 Eos # (Auto) (0.0-0.4) th/mm3 Baso # (Auto) (0.0-0.2) th/mm3 WBC Differential Diff Scan Differential Comment Platelet Estimate (Normal) Platelet Morphology (Normal) PT (9.8-11.6) sec INR Ratio APTT (24.3-30.1) sec Puncture Site Patient Temperature O2 Saturation (90-100) % ABG pH (7.380-7.420) ABG pCO2 (38-42) mmHg ABG pO2 (61-120) mmHg ABG HCO3 (22-26) mmol/L ABG O2 Content (12.0-20.0) Vol % ABG Base Excess (-2-2) mmol/L ABG Methemoglobin (0-2) % Yann Test Hemoglobin (12.0-16.0) G/DL Carboxyhemoglobin (0-4) % O2 Delivery Device Liter Flow L/M Vent Setting Inspired O2 % Critical Value Sodium (136-145) meq/L Potassium (3.5-5.1) meq/L Chloride (98-107) meq/L Carbon Dioxide (21.0-32.0) meq/L Anion Gap (5-15) meq/L BUN (7-18) mg/dL Creatinine (0.50-1.00) mg/dL Estimated GFR (>89) mL/min POC Glucose 218 H 246 H 176 H (68-110) mg/dl Random Glucose (74-106) mg/dL Calcium (8.5-10.1) mg/dL Phosphorus (2.5-4.9) mg/dL Magnesium (1.5-2.5) mg/dL Total Bilirubin (0.2-1.0) mg/dL AST (15-37) U/L ALT (10-53) U/L Alkaline Phosphatase (45-117) U/L Ammonia (11-32) mcmol/L Total Creatine Kinase (26-192) U/L CK-MB (CK-2) (0.5-3.6) ng/mL CK-MB (CK-2) % (0.0-4.0) % Troponin I (0.02-0.05) ng/mL B-Natriuretic Peptide (0-100) pg/mL Total Protein (6.4-8.2) g/dL Albumin (3.4-5.0) g/dL TSH (0.358-3.740) uIU/mL Urine Color (Yellw/Straw) Urine Clarity (Clear) Urine pH (5.0-8.5) Ur Specific [place] (1.002-1.035) Urine Protein (Neg-Trace) mg/dL Urine Glucose (UA) (Negative) mg/dL Urine Ketones (Negative) mg/dL Urine Occult Blood (Negative) Urine Nitrate (Negative) Urine Bilirubin (Negative) Urine Urobilinogen (Less than 2) mg/dL Ur Leukocyte Esterase (Negative) Urine RBC (0-3) /hpf Urine WBC (0-5) /hpf Urine Mucus (Occasional) /lpf Micro UA Comment Ur Microscopic Review Urine Culture Comments Nasal Screen MRSA (PCR) (Negative) 02/21/18 02/21/18 02/21/18 Range/Units 06:03 06:03 06:03 WBC 6.2 (4.0-11.0) th/mm3 RBC 3.29 L (4.00-5.30) mil/mm3 Hgb 10.5 L (11.6-15.3) gm/dL Hct 31.3 L (35.0-46.0) % MCV 95.1 (80.0-100.0) fL MCH 32.0 (27.0-34.0) pg MCHC 33.6 (32.0-36.0) % RDW 15.9 (11.6-17.2) % Plt Count 169 (150-450) th/mm3 MPV 8.8 (7.0-11.0) fL Prelim Diff (Auto) Neut % (Auto) 64.3 (16.0-70.0) % Lymph % (Auto) 20.4 (9.0-44.0) % [place] % (Auto) 10.8 H (0.0-8.0) % Eos % (Auto) 3.6 (0.0-4.0) % Baso % (Auto) 0.9 (0.0-2.0) % Neut # (Auto) 4.0 (1.8-7.7) th/mm3 Lymph # (Auto) 1.3 (1.0-4.8) th/mm3 [place] # (Auto) 0.7 (0.0-0.9) th/mm3 Eos # (Auto) 0.2 (0.0-0.4) th/mm3 Baso # (Auto) 0.1 (0.0-0.2) th/mm3 WBC Differential . Diff Scan Differential Comment Auto diff final Platelet Estimate (Normal) Platelet Morphology (Normal) PT (9.8-11.6) sec INR Ratio APTT (24.3-30.1) sec Puncture Site Patient Temperature O2 Saturation (90-100) % ABG pH (7.380-7.420) ABG pCO2 (38-42) mmHg ABG pO2 (61-120) mmHg ABG HCO3 (22-26) mmol/L ABG O2 Content (12.0-20.0) Vol % ABG Base Excess (-2-2) mmol/L ABG Methemoglobin (0-2) % Yann Test Hemoglobin (12.0-16.0) G/DL Carboxyhemoglobin (0-4) % O2 Delivery Device Liter Flow L/M Vent Setting Inspired O2 % Critical Value Sodium 141 (136-145) meq/L Potassium 3.9 (3.5-5.1) meq/L Chloride 103 (98-107) meq/L Carbon Dioxide 27.5 (21.0-32.0) meq/L Anion Gap 11 (5-15) meq/L BUN 26 H (7-18) mg/dL Creatinine 1.03 H (0.50-1.00) mg/dL Estimated GFR 51 L (>89) mL/min POC Glucose (68-110) mg/dl Random Glucose 157 H (74-106) mg/dL Calcium 8.2 L (8.5-10.1) mg/dL Phosphorus (2.5-4.9) mg/dL Magnesium (1.5-2.5) mg/dL Total Bilirubin (0.2-1.0) mg/dL AST (15-37) U/L ALT (10-53) U/L Alkaline Phosphatase (45-117) U/L Ammonia (11-32) mcmol/L Total Creatine Kinase (26-192) U/L CK-MB (CK-2) (0.5-3.6) ng/mL CK-MB (CK-2) % (0.0-4.0) % Troponin I (0.02-0.05) ng/mL B-Natriuretic Peptide (0-100) pg/mL Total Protein (6.4-8.2) g/dL Albumin (3.4-5.0) g/dL TSH 0.750 (0.358-3.740) uIU/mL Urine Color (Yellw/Straw) Urine Clarity (Clear) Urine pH (5.0-8.5) Ur Specific [place] (1.002-1.035) Urine Protein (Neg-Trace) mg/dL Urine Glucose (UA) (Negative) mg/dL Urine Ketones (Negative) mg/dL Urine Occult Blood (Negative) Urine Nitrate (Negative) Urine Bilirubin (Negative) Urine Urobilinogen (Less than 2) mg/dL Ur Leukocyte Esterase (Negative) Urine RBC (0-3) /hpf Urine WBC (0-5) /hpf Urine Mucus (Occasional) /lpf Micro UA Comment Ur Microscopic Review Urine Culture Comments Nasal Screen MRSA (PCR) (Negative) 02/21/18 02/21/18 02/21/18 Range/Units 07:48 12:56 16:20 WBC (4.0-11.0) th/mm3 RBC (4.00-5.30) mil/mm3 Hgb (11.6-15.3) gm/dL Hct (35.0-46.0) % MCV (80.0-100.0) fL MCH (27.0-34.0) pg MCHC (32.0-36.0) % RDW (11.6-17.2) % Plt Count (150-450) th/mm3 MPV (7.0-11.0) fL Prelim Diff (Auto) Neut % (Auto) (16.0-70.0) % Lymph % (Auto) (9.0-44.0) % [place] % (Auto) (0.0-8.0) % Eos % (Auto) (0.0-4.0) % Baso % (Auto) (0.0-2.0) % Neut # (Auto) (1.8-7.7) th/mm3 Lymph # (Auto) (1.0-4.8) th/mm3 [place] # (Auto) (0.0-0.9) th/mm3 Eos # (Auto) (0.0-0.4) th/mm3 Baso # (Auto) (0.0-0.2) th/mm3 WBC Differential Diff Scan Differential Comment Platelet Estimate (Normal) Platelet Morphology (Normal) PT (9.8-11.6) sec INR Ratio APTT (24.3-30.1) sec Puncture Site Right radial Patient Temperature 98.6 O2 Saturation 89 L* (90-100) % ABG pH 7.44 H (7.380-7.420) ABG pCO2 39 (38-42) mmHg ABG pO2 61 (61-120) mmHg ABG HCO3 26 (22-26) mmol/L ABG O2 Content 12.3 (12.0-20.0) Vol % ABG Base Excess 2.6 H (-2-2) mmol/L ABG Methemoglobin 1.2 (0-2) % Yann Test Present Hemoglobin 9.8 L (12.0-16.0) G/DL Carboxyhemoglobin 1.8 (0-4) % O2 Delivery Device Nasal cannula Liter Flow 3.00 L/M Vent Setting Inspired O2 32 % Critical Value Sodium (136-145) meq/L Potassium (3.5-5.1) meq/L Chloride (98-107) meq/L Carbon Dioxide (21.0-32.0) meq/L Anion Gap (5-15) meq/L BUN (7-18) mg/dL Creatinine (0.50-1.00) mg/dL Estimated GFR (>89) mL/min POC Glucose 175 H 196 H (68-110) mg/dl Random Glucose (74-106) mg/dL Calcium (8.5-10.1) mg/dL Phosphorus (2.5-4.9) mg/dL Magnesium (1.5-2.5) mg/dL Total Bilirubin (0.2-1.0) mg/dL AST (15-37) U/L ALT (10-53) U/L Alkaline Phosphatase (45-117) U/L Ammonia (11-32) mcmol/L Total Creatine Kinase (26-192) U/L CK-MB (CK-2) (0.5-3.6) ng/mL CK-MB (CK-2) % (0.0-4.0) % Troponin I (0.02-0.05) ng/mL B-Natriuretic Peptide (0-100) pg/mL Total Protein (6.4-8.2) g/dL Albumin (3.4-5.0) g/dL TSH (0.358-3.740) uIU/mL Urine Color (Yellw/Straw) Urine Clarity (Clear) Urine pH (5.0-8.5) Ur Specific [place] (1.002-1.035) Urine Protein (Neg-Trace) mg/dL Urine Glucose (UA) (Negative) mg/dL Urine Ketones (Negative) mg/dL Urine Occult Blood (Negative) Urine Nitrate (Negative) Urine Bilirubin (Negative) Urine Urobilinogen (Less than 2) mg/dL Ur Leukocyte Esterase (Negative) Urine RBC (0-3) /hpf Urine WBC (0-5) /hpf Urine Mucus (Occasional) /lpf Micro UA Comment Ur Microscopic Review Urine Culture Comments Nasal Screen MRSA (PCR) (Negative) 02/21/18 02/21/18 02/22/18 Range/Units 17:42 21:13 03:20 WBC (4.0-11.0) th/mm3 RBC (4.00-5.30) mil/mm3 Hgb (11.6-15.3) gm/dL Hct (35.0-46.0) % MCV (80.0-100.0) fL MCH (27.0-34.0) pg MCHC (32.0-36.0) % RDW (11.6-17.2) % Plt Count (150-450) th/mm3 MPV (7.0-11.0) fL Prelim Diff (Auto) Neut % (Auto) (16.0-70.0) % Lymph % (Auto) (9.0-44.0) % [place] % (Auto) (0.0-8.0) % Eos % (Auto) (0.0-4.0) % Baso % (Auto) (0.0-2.0) % Neut # (Auto) (1.8-7.7) th/mm3 Lymph # (Auto) (1.0-4.8) th/mm3 [place] # (Auto) (0.0-0.9) th/mm3 Eos # (Auto) (0.0-0.4) th/mm3 Baso # (Auto) (0.0-0.2) th/mm3 WBC Differential Diff Scan Differential Comment Platelet Estimate (Normal) Platelet Morphology (Normal) PT (9.8-11.6) sec INR Ratio APTT (24.3-30.1) sec Puncture Site Patient Temperature O2 Saturation (90-100) % ABG pH (7.380-7.420) ABG pCO2 (38-42) mmHg ABG pO2 (61-120) mmHg ABG HCO3 (22-26) mmol/L ABG O2 Content (12.0-20.0) Vol % ABG Base Excess (-2-2) mmol/L ABG Methemoglobin (0-2) % Yann Test Hemoglobin (12.0-16.0) G/DL Carboxyhemoglobin (0-4) % O2 Delivery Device Liter Flow L/M Vent Setting Inspired O2 % Critical Value Sodium (136-145) meq/L Potassium (3.5-5.1) meq/L Chloride (98-107) meq/L Carbon Dioxide (21.0-32.0) meq/L Anion Gap (5-15) meq/L BUN (7-18) mg/dL Creatinine (0.50-1.00) mg/dL Estimated GFR (>89) mL/min POC Glucose 194 H 218 H 157 H (68-110) mg/dl Random Glucose (74-106) mg/dL Calcium (8.5-10.1) mg/dL Phosphorus (2.5-4.9) mg/dL Magnesium (1.5-2.5) mg/dL Total Bilirubin (0.2-1.0) mg/dL AST (15-37) U/L ALT (10-53) U/L Alkaline Phosphatase (45-117) U/L Ammonia (11-32) mcmol/L Total Creatine Kinase (26-192) U/L CK-MB (CK-2) (0.5-3.6) ng/mL CK-MB (CK-2) % (0.0-4.0) % Troponin I (0.02-0.05) ng/mL B-Natriuretic Peptide (0-100) pg/mL Total Protein (6.4-8.2) g/dL Albumin (3.4-5.0) g/dL TSH (0.358-3.740) uIU/mL Urine Color (Yellw/Straw) Urine Clarity (Clear) Urine pH (5.0-8.5) Ur Specific [place] (1.002-1.035) Urine Protein (Neg-Trace) mg/dL Urine Glucose (UA) (Negative) mg/dL Urine Ketones (Negative) mg/dL Urine Occult Blood (Negative) Urine Nitrate (Negative) Urine Bilirubin (Negative) Urine Urobilinogen (Less than 2) mg/dL Ur Leukocyte Esterase (Negative) Urine RBC (0-3) /hpf Urine WBC (0-5) /hpf Urine Mucus (Occasional) /lpf Micro UA Comment Ur Microscopic Review Urine Culture Comments Nasal Screen MRSA (PCR) (Negative) 02/22/18 02/22/18 02/22/18 Range/Units 07:55 12:27 17:32 WBC (4.0-11.0) th/mm3 RBC (4.00-5.30) mil/mm3 Hgb (11.6-15.3) gm/dL Hct (35.0-46.0) % MCV (80.0-100.0) fL MCH (27.0-34.0) pg MCHC (32.0-36.0) % RDW (11.6-17.2) % Plt Count (150-450) th/mm3 MPV (7.0-11.0) fL Prelim Diff (Auto) Neut % (Auto) (16.0-70.0) % Lymph % (Auto) (9.0-44.0) % [place] % (Auto) (0.0-8.0) % Eos % (Auto) (0.0-4.0) % Baso % (Auto) (0.0-2.0) % Neut # (Auto) (1.8-7.7) th/mm3 Lymph # (Auto) (1.0-4.8) th/mm3 [place] # (Auto) (0.0-0.9) th/mm3 Eos # (Auto) (0.0-0.4) th/mm3 Baso # (Auto) (0.0-0.2) th/mm3 WBC Differential Diff Scan Differential Comment Platelet Estimate (Normal) Platelet Morphology (Normal) PT (9.8-11.6) sec INR Ratio APTT (24.3-30.1) sec Puncture Site Patient Temperature O2 Saturation (90-100) % ABG pH (7.380-7.420) ABG pCO2 (38-42) mmHg ABG pO2 (61-120) mmHg ABG HCO3 (22-26) mmol/L ABG O2 Content (12.0-20.0) Vol % ABG Base Excess (-2-2) mmol/L ABG Methemoglobin (0-2) % Yann Test Hemoglobin (12.0-16.0) G/DL Carboxyhemoglobin (0-4) % O2 Delivery Device Liter Flow L/M Vent Setting Inspired O2 % Critical Value Sodium (136-145) meq/L Potassium (3.5-5.1) meq/L Chloride (98-107) meq/L Carbon Dioxide (21.0-32.0) meq/L Anion Gap (5-15) meq/L BUN (7-18) mg/dL Creatinine (0.50-1.00) mg/dL Estimated GFR (>89) mL/min POC Glucose 206 H 182 H 185 H (68-110) mg/dl Random Glucose (74-106) mg/dL Calcium (8.5-10.1) mg/dL Phosphorus (2.5-4.9) mg/dL Magnesium (1.5-2.5) mg/dL Total Bilirubin (0.2-1.0) mg/dL AST (15-37) U/L ALT (10-53) U/L Alkaline Phosphatase (45-117) U/L Ammonia (11-32) mcmol/L Total Creatine Kinase (26-192) U/L CK-MB (CK-2) (0.5-3.6) ng/mL CK-MB (CK-2) % (0.0-4.0) % Troponin I (0.02-0.05) ng/mL B-Natriuretic Peptide (0-100) pg/mL Total Protein (6.4-8.2) g/dL Albumin (3.4-5.0) g/dL TSH (0.358-3.740) uIU/mL Urine Color (Yellw/Straw) Urine Clarity (Clear) Urine pH (5.0-8.5) Ur Specific [place] (1.002-1.035) Urine Protein (Neg-Trace) mg/dL Urine Glucose (UA) (Negative) mg/dL Urine Ketones (Negative) mg/dL Urine Occult Blood (Negative) Urine Nitrate (Negative) Urine Bilirubin (Negative) Urine Urobilinogen (Less than 2) mg/dL Ur Leukocyte Esterase (Negative) Urine RBC (0-3) /hpf Urine WBC (0-5) /hpf Urine Mucus (Occasional) /lpf Micro UA Comment Ur Microscopic Review Urine Culture Comments Nasal Screen MRSA (PCR) (Negative) 02/22/18 02/23/18 02/23/18 Range/Units 20:25 02:58 07:48 WBC (4.0-11.0) th/mm3 RBC (4.00-5.30) mil/mm3 Hgb (11.6-15.3) gm/dL Hct (35.0-46.0) % MCV (80.0-100.0) fL MCH (27.0-34.0) pg MCHC (32.0-36.0) % RDW (11.6-17.2) % Plt Count (150-450) th/mm3 MPV (7.0-11.0) fL Prelim Diff (Auto) Neut % (Auto) (16.0-70.0) % Lymph % (Auto) (9.0-44.0) % [place] % (Auto) (0.0-8.0) % Eos % (Auto) (0.0-4.0) % Baso % (Auto) (0.0-2.0) % Neut # (Auto) (1.8-7.7) th/mm3 Lymph # (Auto) (1.0-4.8) th/mm3 [place] # (Auto) (0.0-0.9) th/mm3 Eos # (Auto) (0.0-0.4) th/mm3 Baso # (Auto) (0.0-0.2) th/mm3 WBC Differential Diff Scan Differential Comment Platelet Estimate (Normal) Platelet Morphology (Normal) PT (9.8-11.6) sec INR Ratio APTT (24.3-30.1) sec Puncture Site Patient Temperature O2 Saturation (90-100) % ABG pH (7.380-7.420) ABG pCO2 (38-42) mmHg ABG pO2 (61-120) mmHg ABG HCO3 (22-26) mmol/L ABG O2 Content (12.0-20.0) Vol % ABG Base Excess (-2-2) mmol/L ABG Methemoglobin (0-2) % Yann Test Hemoglobin (12.0-16.0) G/DL Carboxyhemoglobin (0-4) % O2 Delivery Device Liter Flow L/M Vent Setting Inspired O2 % Critical Value Sodium (136-145) meq/L Potassium (3.5-5.1) meq/L Chloride (98-107) meq/L Carbon Dioxide (21.0-32.0) meq/L Anion Gap (5-15) meq/L BUN (7-18) mg/dL Creatinine (0.50-1.00) mg/dL Estimated GFR (>89) mL/min POC Glucose 183 H 186 H 195 H (68-110) mg/dl Random Glucose (74-106) mg/dL Calcium (8.5-10.1) mg/dL Phosphorus (2.5-4.9) mg/dL Magnesium (1.5-2.5) mg/dL Total Bilirubin (0.2-1.0) mg/dL AST (15-37) U/L ALT (10-53) U/L Alkaline Phosphatase (45-117) U/L Ammonia (11-32) mcmol/L Total Creatine Kinase (26-192) U/L CK-MB (CK-2) (0.5-3.6) ng/mL CK-MB (CK-2) % (0.0-4.0) % Troponin I (0.02-0.05) ng/mL B-Natriuretic Peptide (0-100) pg/mL Total Protein (6.4-8.2) g/dL Albumin (3.4-5.0) g/dL TSH (0.358-3.740) uIU/mL Urine Color (Yellw/Straw) Urine Clarity (Clear) Urine pH (5.0-8.5) Ur Specific [place] (1.002-1.035) Urine Protein (Neg-Trace) mg/dL Urine Glucose (UA) (Negative) mg/dL Urine Ketones (Negative) mg/dL Urine Occult Blood (Negative) Urine Nitrate (Negative) Urine Bilirubin (Negative) Urine Urobilinogen (Less than 2) mg/dL Ur Leukocyte Esterase (Negative) Urine RBC (0-3) /hpf Urine WBC (0-5) /hpf Urine Mucus (Occasional) /lpf Micro UA Comment Ur Microscopic Review Urine Culture Comments Nasal Screen MRSA (PCR) (Negative) 02/23/18 02/23/18 02/23/18 Range/Units 11:36 17:07 20:02 WBC (4.0-11.0) th/mm3 RBC (4.00-5.30) mil/mm3 Hgb (11.6-15.3) gm/dL Hct (35.0-46.0) % MCV (80.0-100.0) fL MCH (27.0-34.0) pg MCHC (32.0-36.0) % RDW (11.6-17.2) % Plt Count (150-450) th/mm3 MPV (7.0-11.0) fL Prelim Diff (Auto) Neut % (Auto) (16.0-70.0) % Lymph % (Auto) (9.0-44.0) % [place] % (Auto) (0.0-8.0) % Eos % (Auto) (0.0-4.0) % Baso % (Auto) (0.0-2.0) % Neut # (Auto) (1.8-7.7) th/mm3 Lymph # (Auto) (1.0-4.8) th/mm3 [place] # (Auto) (0.0-0.9) th/mm3 Eos # (Auto) (0.0-0.4) th/mm3 Baso # (Auto) (0.0-0.2) th/mm3 WBC Differential Diff Scan Differential Comment Platelet Estimate (Normal) Platelet Morphology (Normal) PT (9.8-11.6) sec INR Ratio APTT (24.3-30.1) sec Puncture Site Patient Temperature O2 Saturation (90-100) % ABG pH (7.380-7.420) ABG pCO2 (38-42) mmHg ABG pO2 (61-120) mmHg ABG HCO3 (22-26) mmol/L ABG O2 Content (12.0-20.0) Vol % ABG Base Excess (-2-2) mmol/L ABG Methemoglobin (0-2) % Yann Test Hemoglobin (12.0-16.0) G/DL Carboxyhemoglobin (0-4) % O2 Delivery Device Liter Flow L/M Vent Setting Inspired O2 % Critical Value Sodium (136-145) meq/L Potassium (3.5-5.1) meq/L Chloride (98-107) meq/L Carbon Dioxide (21.0-32.0) meq/L Anion Gap (5-15) meq/L BUN (7-18) mg/dL Creatinine (0.50-1.00) mg/dL Estimated GFR (>89) mL/min POC Glucose 236 H 196 H 226 H (68-110) mg/dl Random Glucose (74-106) mg/dL Calcium (8.5-10.1) mg/dL Phosphorus (2.5-4.9) mg/dL Magnesium (1.5-2.5) mg/dL Total Bilirubin (0.2-1.0) mg/dL AST (15-37) U/L ALT (10-53) U/L Alkaline Phosphatase (45-117) U/L Ammonia (11-32) mcmol/L Total Creatine Kinase (26-192) U/L CK-MB (CK-2) (0.5-3.6) ng/mL CK-MB (CK-2) % (0.0-4.0) % Troponin I (0.02-0.05) ng/mL B-Natriuretic Peptide (0-100) pg/mL Total Protein (6.4-8.2) g/dL Albumin (3.4-5.0) g/dL TSH (0.358-3.740) uIU/mL Urine Color (Yellw/Straw) Urine Clarity (Clear) Urine pH (5.0-8.5) Ur Specific [place] (1.002-1.035) Urine Protein (Neg-Trace) mg/dL Urine Glucose (UA) (Negative) mg/dL Urine Ketones (Negative) mg/dL Urine Occult Blood (Negative) Urine Nitrate (Negative) Urine Bilirubin (Negative) Urine Urobilinogen (Less than 2) mg/dL Ur Leukocyte Esterase (Negative) Urine RBC (0-3) /hpf Urine WBC (0-5) /hpf Urine Mucus (Occasional) /lpf Micro UA Comment Ur Microscopic Review Urine Culture Comments Nasal Screen MRSA (PCR) (Negative) 02/24/18 02/24/18 Range/Units 02:37 07:35 WBC (4.0-11.0) th/mm3 RBC (4.00-5.30) mil/mm3 Hgb (11.6-15.3) gm/dL Hct (35.0-46.0) % MCV (80.0-100.0) fL MCH (27.0-34.0) pg MCHC (32.0-36.0) % RDW (11.6-17.2) % Plt Count (150-450) th/mm3 MPV (7.0-11.0) fL Prelim Diff (Auto) Neut % (Auto) (16.0-70.0) % Lymph % (Auto) (9.0-44.0) % [place] % (Auto) (0.0-8.0) % Eos % (Auto) (0.0-4.0) % Baso % (Auto) (0.0-2.0) % Neut # (Auto) (1.8-7.7) th/mm3 Lymph # (Auto) (1.0-4.8) th/mm3 [place] # (Auto) (0.0-0.9) th/mm3 Eos # (Auto) (0.0-0.4) th/mm3 Baso # (Auto) (0.0-0.2) th/mm3 WBC Differential Diff Scan Differential Comment Platelet Estimate (Normal) Platelet Morphology (Normal) PT (9.8-11.6) sec INR Ratio APTT (24.3-30.1) sec Puncture Site Patient Temperature O2 Saturation (90-100) % ABG pH (7.380-7.420) ABG pCO2 (38-42) mmHg ABG pO2 (61-120) mmHg ABG HCO3 (22-26) mmol/L ABG O2 Content (12.0-20.0) Vol % ABG Base Excess (-2-2) mmol/L ABG Methemoglobin (0-2) % Yann Test Hemoglobin (12.0-16.0) G/DL Carboxyhemoglobin (0-4) % O2 Delivery Device Liter Flow L/M Vent Setting Inspired O2 % Critical Value Sodium (136-145) meq/L Potassium (3.5-5.1) meq/L Chloride (98-107) meq/L Carbon Dioxide (21.0-32.0) meq/L Anion Gap (5-15) meq/L BUN (7-18) mg/dL Creatinine (0.50-1.00) mg/dL Estimated GFR (>89) mL/min POC Glucose 168 H 166 H (68-110) mg/dl Random Glucose (74-106) mg/dL Calcium (8.5-10.1) mg/dL Phosphorus (2.5-4.9) mg/dL Magnesium (1.5-2.5) mg/dL Total Bilirubin (0.2-1.0) mg/dL AST (15-37) U/L ALT (10-53) U/L Alkaline Phosphatase (45-117) U/L Ammonia (11-32) mcmol/L Total Creatine Kinase (26-192) U/L CK-MB (CK-2) (0.5-3.6) ng/mL CK-MB (CK-2) % (0.0-4.0) % Troponin I (0.02-0.05) ng/mL B-Natriuretic Peptide (0-100) pg/mL Total Protein (6.4-8.2) g/dL Albumin (3.4-5.0) g/dL TSH (0.358-3.740) uIU/mL Urine Color (Yellw/Straw) Urine Clarity (Clear) Urine pH (5.0-8.5) Ur Specific [place] (1.002-1.035) Urine Protein (Neg-Trace) mg/dL Urine Glucose (UA) (Negative) mg/dL Urine Ketones (Negative) mg/dL Urine Occult Blood (Negative) Urine Nitrate (Negative) Urine Bilirubin (Negative) Urine Urobilinogen (Less than 2) mg/dL Ur Leukocyte Esterase (Negative) Urine RBC (0-3) /hpf Urine WBC (0-5) /hpf Urine Mucus (Occasional) /lpf Micro UA Comment Ur Microscopic Review Urine Culture Comments Nasal Screen MRSA (PCR) (Negative) Imaging Data Radiologist's impression: Chest X-Ray 02/17/18 18:30 CONCLUSION: Minimal basilar atelectasis. No consolidation or significant effusion. Abdomen X-Ray 02/18/18 00:00 CONCLUSION: Mild ileus suspected. No perceptible obstruction. No free air. Abdomen/Bladder Ultrasound 02/18/18 00:00 CONCLUSION: 1. Minimal perinephric fluid on the left which is nonspecific. 2. Multiple bilateral renal cysts. 3. No hydronephrosis or solid renal mass. 4. Limited evaluation of the urinary bladder which is nondistended and contains a Soto catheter. 5. Echogenic liver suggesting fatty infiltration or diffuse hepatocellular disease. Chest X-Ray 02/18/18 03:37 CONCLUSION: Mild bibasilar atelectasis. Head CT 02/18/18 15:39 CONCLUSION: 1. No acute intracranial findings. 2. Small air-fluid level in left sphenoid sinus, suggesting sinusitis. . Chest X-Ray 02/19/18 06:00 CONCLUSION: No significant change. Chest X-Ray 02/20/18 06:00 CONCLUSION: No significant change. Discharge Plan Discharge Disposition Patient Disposition: 30 Still Patient Discharge Condition Condition: Stable Discharge Order Discharge Orders: Discharge Order (Routine); Ordered 02/23/18 Ordered By: Julia Ball Discharge Details Diagnosis: Elevated troponin, Hypoxemia Physicians Team ED Provider: Raphael Bello Primary Care Provider: Do Paulina Mariee Attending Provider: Julia Ball Other Providers: Samuel Aguilar ; Kat Stephens ; Mei Sheikh ; Betsy Meyer ; Clayton Ramos ; [facility] ; [facility],[place] Status ED Status: Left Department Discharge Information Discharge Date/Time: 02/17/18 22:12
[2018-02-17 19:17] LABS: Alkaline Phosphatase 59 U/L (45-117); Creatine Kinase 233 U/L (26-192); Total Protein 6.8 g/dL (6.4-8.2)
[2018-02-17 19:23] LABS: Troponin I 0.67 ng/mL (0.02-0.05)
[2018-02-17 19:35] LABS: CKMB Percent 0.9 % (0.0-4.0)
[2018-02-17 20:35] LABS: Activated Partial Thrombo Time 25.2 sec (24.3-30.1); INR 1.1 Ratio; Prothrombin Time 10.7 sec (9.8-11.6)
[2018-02-17] MEDS ORDERED: Bisacodyl 10 MG Supp RECTAL PRN (21:00)
[2018-02-17] MEDS ORDERED: Dextrose 50% in Water 50 ML Vial IV.PUSH PRN (21:00)
[2018-02-17] MEDS: Insulin NovoLOG Aspart Correctional Sugar Inj SQ SCH (21:00)
[2018-02-17] MEDS ORDERED: Acetaminophen 325 MG Tablet PO PRN (21:00)
--- NOTE | 2018-02-17 21:49 | P.HP ---
History of Present Illness Service: [facility] Primary Care Physician: Do Paulina Mariee History of Present Illness: 82-year-old female with a past medical history significant for CHF, CKD, type 2 diabetes mellitus, hypertension, hypothyroidism and hyperlipidemia presents to the emergency department for the evaluation of weakness, shortness of breath and increased respiratory effort. The patient had a TAVR on 02/16/18 and was discharged to home earlier today. Her daughter observed that she was having difficulty walking into her home when they arrived secondary to bilateral lower extremity weakness. She also was having shortness of breath with increased respiratory effort. She denies any chest pain. No abdominal pain. No nausea/ vomiting/diarrhea. No lateralizing signs/symptoms. No fevers/chills. EMS was called and the patient's pulse ox was in the 70s on scene. Improved with BiPAP. Inpatient Certification: I certify that the inpatient services were ordered in accordance with Medicare regulations governing the order. This includes certification that hospital inpatient services are reasonable and necessary and in the case of services not specified as inpatient-only under 42 CFR 419.22(n), that they are appropriately provided as inpatient services in accordance to with the 2-midnight benchmark under 43 CFR 412.3(e) Review of Systems All other systems reviewed negative except as stated in HPI PMFSH - History History Provided By: Patient - Medical History Medical History: Medical History (Last Reviewed 02/17/18 @ 21:38 by Padmini Albert MD) Aortic valve regurgitation (Acute) Severe aortic valve stenosis (Acute) Obstructive sleep apnea (Acute) Diabetes mellitus type 2 in nonobese (Acute) Hypothyroid (Acute) Hyperlipidemia (Acute) Hypertension (Acute) Chronic diastolic (congestive) heart failure Chronic kidney disease, stage II (mild) FH: cholecystectomy FH: mastectomy History of breast cancer NYHA class 3 heart failure with preserved ejection fraction - Surgical History Surgical History: Surgical History (Last Reviewed 02/17/18 @ 21:38 by Padmini Albert MD) H/O bilateral mastectomy (Acute) History of appendectomy History of percutaneous coronary intervention Hx of tonsillectomy - Family History Family History: Family History (Last Reviewed 02/17/18 @ 21:38 by Padmini Albert MD) Other Aortic valve disease Family history of cancer - Tobacco History Second Hand Smoke Exposure: No Tobacco Use In Past 30 Days: No Smoking Status: Former smoker Tobacco Type: Cigarettes - Alcohol History How Often Do You Have a Drink Containing Alcohol: Never - Substance Use History Substance History: No History of Abuse - Travel History Recent Travel in the [place] Within the Last 8 Weeks: No Recent Travel Out of the Country Within the Last 8 Weeks: No - Immunization History Tetanus Immunization: <5 Years Medications and Allergies Active Medications: Active Medications Acetaminophen (Tylenol) 650 mg PO Q4H PRN PRN Reason: Temp > 100.4 Bisacodyl (Dulcolax Supp) 10 mg RECTAL DAILY PRN PRN Reason: SEVERE CONSITIPATION Dextrose (D50w Vial) 50 ml IV.PUSH UNSCH PRN PRN Reason: PER HYPOGLYCEMIA PROTOCOL Glucagon (Glucagon Inj) 1 mg OTHER PRN PRN PRN Reason: for Hypoglycemia Protocol Insulin Aspart (Novolog Insulin Correctional Sugar Inj) 0 unit SQ ACHS AND 3AM VALENTINO; Protocol Ondansetron HCl (Zofran Inj) 4 mg IV.PUSH Q6H PRN PRN Reason: NAUSEA OR VOMITING Sennosides (Senokot) 17.2 mg PO Q12H PRN PRN Reason: Moderate Constipation Sodium Chloride (Ns Flush) 2 ml IV.FLUSH UNSCH PRN PRN Reason: FLUSH AFTER USING IV ACCESS Allergies Allergy/AdvReac Type Severity Reaction Status Date / Time No Known Allergies Allergy Verified 02/16/18 05:43 Home Medications Medication Instructions Recorded Confirmed Type atorvastatin 20 mg PO DAILY 01/19/18 02/17/18 History gabapentin 100 mg PO TID 01/19/18 02/17/18 History glipizide 10 mg PO DAILY 01/19/18 02/17/18 History letrozole 2.5 mg PO DAILY 01/19/18 02/17/18 History levothyroxine 137 mcg PO DAILY 01/19/18 02/17/18 History lisinopril-hydrochlorothiazide 1 tab PO DAILY 01/19/18 02/17/18 History loratadine [Claritin] 10 mg PO DAILY 01/19/18 02/17/18 History metformin 1,000 mg PO BID 01/19/18 02/17/18 History potassium chloride [Klor-Con 10] 10 meq PO DAILY 01/19/18 02/17/18 History Exam Vital signs: Vital Signs 02/17/18 18:16 02/17/18 18:21 02/17/18 18:36 Temperature 99.4 F Pulse Rate 106 H Respiratory Rate 17 Blood Pressure 150/67 H Pulse Oximetry 89 L 92 L 94 L 02/17/18 18:38 02/17/18 18:43 02/17/18 19:50 Temperature Pulse Rate 99 H Respiratory Rate 24 Blood Pressure 150/66 H Pulse Oximetry 91 L 96 96 Intake & Output 02/17/18 02/17/18 02/18/18 06:59 18:59 06:59 Weight 81.193 kg Narrative: Gen.: No acute distress Head: Normocephalic. Atraumatic. EENT: Pupils equal round and reactive to light. Nose without drainage. Airway intact. Throat without injection. Cardiovascular: Regular rate and rhythm. No murmurs, rubs or gallops. Respiratory: Lungs clear to auscultation bilaterally. No wheezes or rhonchi. Abdomen: Soft, nontender, nondistended. No peritoneal signs. Musculoskeletal: No gross deformities. No edema. Skin: No obvious rashes or erythema. Neuro: Sensory and motor grossly intact. Cranial nerves II through XII grossly intact. Results - Labs CBC & Chem 7: 02/17/18 18:35 02/17/18 18:35 Labs: Laboratory Results - last 24 hr 02/17/18 02/17/18 02/17/18 18:35 18:35 18:35 WBC 7.6 RBC 3.48 L Hgb 11.3 L Hct 33.4 L MCV 95.8 MCH 32.4 MCHC 33.9 RDW 16.2 Plt Count 136 L MPV 8.4 Neut % (Auto) 59.1 Lymph % (Auto) 20.8 [place] % (Auto) 17.8 H Eos % (Auto) 1.3 Baso % (Auto) 1.0 Neut # (Auto) 4.5 Lymph # (Auto) 1.6 [place] # (Auto) 1.4 H Eos # (Auto) 0.1 Baso # (Auto) 0.1 WBC Differential . Differential Comment Auto diff final PT INR APTT Sodium 133 L Potassium 4.0 Chloride 98 Carbon Dioxide 27.6 Anion Gap 7 BUN 18 Creatinine 1.09 H Estimated GFR 48 L Random Glucose 149 H Calcium 8.1 L Total Bilirubin 0.6 AST 25 ALT 19 Alkaline Phosphatase 59 Total Creatine Kinase 233 H CK-MB (CK-2) 2.0 CK-MB (CK-2) % 0.9 Troponin I 0.67 H* B-Natriuretic Peptide 69 Total Protein 6.8 Albumin 3.1 L 02/17/18 19:55 WBC RBC Hgb Hct MCV MCH MCHC RDW Plt Count MPV Neut % (Auto) Lymph % (Auto) [place] % (Auto) Eos % (Auto) Baso % (Auto) Neut # (Auto) Lymph # (Auto) [place] # (Auto) Eos # (Auto) Baso # (Auto) WBC Differential Differential Comment PT 10.7 INR 1.1 APTT 25.2 Sodium Potassium Chloride Carbon Dioxide Anion Gap BUN Creatinine Estimated GFR Random Glucose Calcium Total Bilirubin AST ALT Alkaline Phosphatase Total Creatine Kinase CK-MB (CK-2) CK-MB (CK-2) % Troponin I B-Natriuretic Peptide Total Protein Albumin - Imaging Impressions Chest X-Ray 02/17/18 18:30 CONCLUSION: Minimal basilar atelectasis. No consolidation or significant effusion. Caprini VTE Risk Assessment Caprini VTE Risk Assessment: Moderate/High Risk (score >= 2) Caprini Risk Assessment Model: Point Value = 1 Point Value = 2 Point Value = 3 Point Value = 5 Age 41-60 Minor surgery BMI > 25 kg/m2 Swollen legs Varicose veins or History of unexplained or recurrent spontaneous Oral contraceptives or hormone replacement Sepsis (< 1 month) Serious lung disease, including pneumonia (< 1 month) Abnormal pulmonary function Acute myocardial infarction Congestive heart failure (< 1 month) History of inflammatory bowel disease Medical patient at bed rest Age 61-74 Arthroscopic surgery Major open surgery (> 45 min) Laparoscopic surgery (> 45 min) Malignancy Confined to bed (> 72 hours) Immobilizing plaster cast Central venous access Age >= 75 History of VTE Family history of VTE Factor V Leiden Prothrombin [id number] Lupus anticoagulant Anticardiolipin antibodies Elevated serum homocysteine Heparin-induced thrombocytopenia Other congenital or acquired thrombophilia Stroke (< 1 month) Elective arthroplasty Hip, pelvis, or leg fracture Acute spinal cord injury (< 1 month) Prophylaxis Regimen: Total Risk Factor Score Risk Level Prophylaxis Regimen 0-1 Low Early ambulation 2 Moderate Order ONE of the following: *Sequential Compression Device (SCD) *Heparin 5000 units SQ BID 3-4 Higher Order ONE of the following medications: *Heparin 5000 units SQ TID *Enoxaparin/Lovenox 40 mg SQ daily (WT < 150 kg, CrCl > 30 mL/min) *Enoxaparin/Lovenox 30 mg SQ daily (WT < 150 kg, CrCl > 10-29 mL/min) *Enoxaparin/Lovenox 30 mg SQ BID (WT < 150 kg, CrCl > 30 mL/min) AND/OR *Sequential Compression Device (SCD) 5 or more Highest Order ONE of the following medications: *Heparin 5000 units SQ TID (Preferred with Epidurals) *Enoxaparin/Lovenox 40 mg SQ daily (WT < 150 kg, CrCl > 30 mL/min) *Enoxaparin/Lovenox 30 mg SQ daily (WT < 150 kg, CrCl > 10-29 mL/min) *Enoxaparin/Lovenox 30 mg SQ BID (WT < 150 kg, CrCl > 30 mL/min) AND *Sequential Compression Device (SCD) Assessment and Plan - Plan Assessment/plan: 1. 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 humphrey consulted, appreciate assistance Chest x-ray negative for acute process, personally reviewed ACS rule out pending 2. Diabetes mellitus Sliding-scale insulin Monitor blood glucose 3. Hypertension/hyperlipidemia/hypothyroidism Continue home medications 4. Chronic kidney disease Creatinine 1.09, baseline Monitor renal function FEN N.p.o. Electrolytes: Monitor and replete as needed Heparin
[2018-02-17 22:01] LABS: ABG Base Excess 3.5 mmol/L (-2-2); ABG PCO2 52 mmHg (38-42); ABG PO2 85 mmHg (61-120)
[2018-02-18] MEDS: Insulin NovoLOG Aspart Correctional Sugar Inj SQ SCH ×5 (02:58→21:23)
--- NOTE | 2018-02-18 03:37 | P.PNADD ---
Addendum to Inpatient Note Reason for Addendum: Additional Documentation Additional information: HALICAT NOTE Subjective: Residents responded to a HaliCAT page around 0310. Patient is a 82 y/o female that was readmitted to the hospital yesterday for shortness of breath several hours after she was discharged. Patient had a transcatheter aortic valve replacement procedure performed on 02/16/2018. The nurse states that when she came up to the floor she was on a Ventimask and was pulling it off such that her saturations with a going down to the mid 80s to high 80s. She was finally able to get her on BiPAP with O2 saturations between 98-100%. However, when she returned to the patient's room she noticed that she was not responding properly seemed very lethargic even while she was on BiPAP, which prompted her to call a HaliCAT. Pt is oriented to person, place, and time. She denies any chest or abdominal pain or trouble with bleeding. Objective: VITALS: Patient's heart rate was initially in the mid to high 90s when she came up to the floor but is now in the 110's; tachypneic to the 30's, afebrile BG: pH 7.32, pCO2 60, pO2 7.32; not very different from her previous abg on admission General: Elderly female of stated age lying in bed, Bipap mask in place, appears very uncomfortable Skin: multiple actinic keratosis Cardiac: Tachycardic but regular rhythm Respiratory: Coarse breath sounds mostly in the mid lung areas with poor air movement, increased work of breathing Abdomen: soft but appears distended; tympanic with hypoactive bowel sounds; night nurse has no baseline to compare to Neuro: OAx3 Assessment: 82 y/o F in hypercapnic respiratory distress Plan: -Continue on Bipap -Stat cxr -Stat abdominal xray -Repeat labs -Abg as above -Insert mcghee catether -Raisin Separator Operator consult with [place] [facility] [place] Judy nurse called Dr. Sheikh who came by to evaluate the patient and agreed with ICU transfer Patient seen and examined with Dr. Valero, PGY1 Discussed with Judy dillard
[2018-02-18 03:42] LABS: ABG Base Excess 4.2 mmol/L (-2-2); ABG PCO2 60 mmHg (38-42); ABG PO2 72 mmHG (61-120)
[2018-02-18 04:05] LABS: Baso # (Auto) 0.1 th/mm3 (0.0-0.2); Baso % (Auto) 0.8 % (0.0-2.0); Eos # (Auto) 0.1 th/mm3 (0.0-0.4); Eos % (Auto) 1.1 % (0.0-4.0); Hematocrit 35.7 % (35.0-46.0); Hemoglobin 11.6 gm/dL (11.6-15.3); Lymph # (Auto) 1.7 th/mm3 (1.0-4.8); Lymph % (Auto) 18.5 % (9.0-44.0); Mean Corpuscular HGB Conc 32.3 % (32.0-36.0); Mean Corpuscular Hemoglobin 31.3 pg (27.0-34.0); Mean Corpuscular Volume 96.8 fL (80.0-100.0); Mean Platelet Volume 8.6 fL (7.0-11.0); Mono # (Auto) 1.9 th/mm3 (0.0-0.9); Mono % (Auto) 19.9 % (0.0-8.0); Neut # (Auto) 5.6 th/mm3 (1.8-7.7); Neut % (Auto) 59.7 % (16.0-70.0); Platelet Count 117 th/mm3 (150-450); Red Blood Count 3.69 mil/mm3 (4.00-5.30); Red Cell Distribution Width 16.2 % (11.6-17.2); White Blood Count 9.4 th/mm3 (4.0-11.0)
[2018-02-18 04:10] LABS: Calcium 8.3 mg/dL (8.5-10.1); Carbon Dioxide 30.9 meq/L (21.0-32.0); Potassium 4.1 meq/L (3.5-5.1)
[2018-02-18 04:14] LABS: Troponin I 0.53 ng/mL (0.02-0.05)
[2018-02-18 04:26] LABS: CKMB Percent 0.9 % (0.0-4.0); Creatine Kinase MB 2.1 ng/mL (0.5-3.6)
--- NOTE | 2018-02-18 04:37 | XR ---
EXAM DATE: 02/18/2018 4:13 AM EDT AGE/SEX: 82 years / Female INDICATIONS: Difficulty breathing CLINICAL DATA: This is the patient's subsequent encounter. Patient reports that signs and symptoms h ave been present for 2 days and indicates a pain score of 0/10. MEDICAL/SURGICAL HISTORY: . Hypertension. Hypothyroidism. Carcinoma, breast. Aortic stenosis CH F Chronic kidney disease Cholecystectomy. Appendectomy. COMPARISON: [facility] [place], CHEST 1V SINGLE AP, 02/17/2018. . FINDINGS: Mild atelectasis of both lung bases. No pleural effusion seen. No pneumothorax. Heart size stable, within normal limits. CONCLUSION: Mild bibasilar atelectasis. Electronically signed by: Rayshawn Lang MD 02/18/2018 4:35 AM EDT
--- NOTE | 2018-02-18 04:38 | XR ---
EXAM DATE: 02/18/2018 4:12 AM EDT AGE/SEX: 82 years / Female INDICATIONS: Abdominal distension CLINICAL DATA: This is the patient's initial encounter. Patient reports that signs and symptoms have been present for 1 day and indicates a pain score of 0/10. MEDICAL/SURGICAL HISTORY: . Hypertension. Hypothyroidism. Carcinoma, breast. Aortic stenosis CH F Chronic kidney disease. Cholecystectomy. Appendectomy. COMPARISON: No prior exams available for comparison. FINDINGS: Mild and fairly diffuse appearing distention of the colon noted. Overall paucity of small bowel gas. No gastric distention demonstrated. No free air. CONCLUSION: Mild ileus suspected. No perceptible obstruction. No free air. Electronically signed by: Rayshawn Lang MD 02/18/2018 4:37 AM EDT
[2018-02-18 04:50] LABS: Platelet Morphology Normal (Normal)
--- NOTE | 2018-02-18 05:03 | P.CONCC ---
History of Present Illness Service: Critical Care Medicine Consult date: 02/18/18 Requesting Physician: Mary Alba Reason for Consult: resp distress Primary Care Provider: Do Paulina Mariee Family Provider: Do Paulina Mariee Chief Complaint: SOB History of Present Illness: 82-year-old female with a past medical history type 2 diabetes mellitus, hypertension, hypothyroidism, hyperlipidemia, KOMAL with poor CPAP adherence, CKD stage II, hx breast cancer s/p bilat mastectomy, CHF related to severe , CAD with DORIAN to RCA with recent TAVR 02/16. She was discharged 02/17 after arrangements were made for home health due to deconditioning. She presented to [facility] via [facility] with generalized weakness and shortness of breath. She was placed on Bipap due to increased work of breathing and hypercapneic and hypoxemic respiratory failure. CXR showed bibasilar atelectasis. She was admitted to [facility] under the hospitalist service. She was off Bipap on Venti mask about 6 hours and she was taking the Ventimask off and had a desaturation. Halicat was called and I was asked to evaluate her. Repeat ABG with mildly worsening hypercapneic. She was tachypneic on Bipap, transferred to [facility]. She denies CP, states "she has to use the bathroom". Abdomen distended, placed Soto , >1.5 L of output upon insertion. Respiratory status improving. CXR stable. TAVR team updated.CKD Review of Systems All other systems reviewed negative except as stated in HPI PMFSH - History History Provided By: Patient - Medical History Medical History: Medical History (Last Reviewed 02/19/18 @ 11:44 by Casie Franz [employer] Specialist, [employer]) Aortic valve regurgitation (Acute) Severe aortic valve stenosis (Acute) Diabetes mellitus type 2 in nonobese (Acute) Hypothyroid (Acute) Hyperlipidemia (Acute) Hypertension (Acute) Chronic diastolic (congestive) heart failure Chronic kidney disease, stage II (mild) FH: cholecystectomy FH: mastectomy History of breast cancer NYHA class 3 heart failure with preserved ejection fraction - Surgical History Surgical History: Surgical History (Last Reviewed 02/18/18 @ 13:18 by Abel Barillas) H/O bilateral mastectomy (Acute) History of appendectomy History of percutaneous coronary intervention Hx of tonsillectomy S/P TAVR (transcatheter aortic valve replacement) - Family History Family History: Family History (Last Reviewed 02/17/18 @ 21:38 by Padmini Albert MD) Other Aortic valve disease Family history of cancer - Tobacco History Second Hand Smoke Exposure: No Tobacco Use In Past 30 Days: No Smoking Status: Former smoker Tobacco Type: Cigarettes - Alcohol History How Often Do You Have a Drink Containing Alcohol: Never - Substance Use History Substance History: No History of Abuse - Travel History Recent Travel in the [place] Within the Last 8 Weeks: No Recent Travel Out of the Country Within the Last 8 Weeks: No - Immunization History Tetanus Immunization: <5 Years Medications and Allergies Active Medications: Active Medications Acetaminophen (Tylenol) 650 mg PO Q4H PRN PRN Reason: Temp > 100.4 Aspirin (Ecotrin) 81 mg PO DAILY [facility] Atorvastatin Calcium (Lipitor) 20 mg PO DAILY [facility] Bisacodyl (Dulcolax Supp) 10 mg RECTAL DAILY PRN PRN Reason: SEVERE CONSITIPATION Clopidogrel Bisulfate (Plavix) 75 mg PO DAILY [facility] Dextrose (D50w Vial) 50 ml IV.PUSH UNSCH PRN PRN Reason: PER HYPOGLYCEMIA PROTOCOL Ferrous Sulfate (Ferosul) 325 mg PO DAILY [facility] Gabapentin (Neurontin) 100 mg PO TID [facility] Glucagon (Glucagon Inj) 1 mg OTHER PRN PRN PRN Reason: for Hypoglycemia Protocol Heparin Sodium (Porcine) (Heparin Inj) 5,000 units SQ Q12HR [facility] Hydrochlorothiazide (Hydrodiuril) 12.5 mg PO DAILY [facility] Insulin Aspart (Novolog Insulin Correctional Sugar Inj) 0 unit SQ ACHS AND 3AM [facility]; Protocol Last Admin: 02/18/18 02:58 Dose: 1 unit Levothyroxine Sodium (Synthroid) 112 mcg PO DAILY@0600 [facility] Levothyroxine Sodium (Synthroid) 25 mcg PO DAILY@0600 [facility] Lisinopril (Prinivil) 10 mg PO DAILY [facility] Loratadine (Claritin) 10 mg PO DAILY [facility] Metoprolol Succinate (Toprol Xl) 12.5 mg PO DAILY [facility] Ondansetron HCl (Zofran Inj) 4 mg IV.PUSH Q6H PRN PRN Reason: NAUSEA OR VOMITING Pt Own Med: Letrozole 2.5 Mg Tablet 0 each PO DAILY [facility] Sennosides (Senokot) 17.2 mg PO Q12H PRN PRN Reason: Moderate Constipation Sodium Chloride (Ns Flush) 2 ml IV.FLUSH UNSCH PRN PRN Reason: FLUSH AFTER USING IV ACCESS Allergies Allergy/AdvReac Type Severity Reaction Status Date / Time No Known Allergies Allergy Verified 02/16/18 05:43 Home Medications Medication Instructions Recorded Confirmed Type atorvastatin 20 mg PO DAILY 01/19/18 02/17/18 History gabapentin 100 mg PO TID 01/19/18 02/17/18 History glipizide 10 mg PO DAILY 01/19/18 02/17/18 History letrozole 2.5 mg PO DAILY 01/19/18 02/17/18 History levothyroxine 137 mcg PO DAILY 01/19/18 02/17/18 History lisinopril-hydrochlorothiazide 1 tab PO DAILY 01/19/18 02/17/18 History loratadine [Claritin] 10 mg PO DAILY 01/19/18 02/17/18 History metformin 1,000 mg PO BID 01/19/18 02/17/18 History potassium chloride [Klor-Con 10] 10 meq PO DAILY 01/19/18 02/17/18 History Physical Exam Vital signs: Vital Signs 02/17/18 18:16 02/17/18 18:21 02/17/18 18:36 Temperature 99.4 F Pulse Rate 106 H Respiratory Rate 17 Blood Pressure 150/67 H Pulse Oximetry 89 L 92 L 94 L 02/17/18 18:38 02/17/18 18:43 02/17/18 19:50 Temperature Pulse Rate 99 H Respiratory Rate 24 Blood Pressure 150/66 H Pulse Oximetry 91 L 96 96 02/17/18 22:00 02/17/18 23:00 02/17/18 23:36 Temperature Pulse Rate 93 H 92 H Respiratory Rate Blood Pressure Pulse Oximetry 94 L 02/18/18 00:00 02/18/18 01:00 02/18/18 02:00 Temperature 99.0 F Pulse Rate 92 H 98 H 96 H Respiratory Rate 16 Blood Pressure 135/64 Pulse Oximetry 98 02/18/18 03:00 02/18/18 03:13 02/18/18 04:00 Temperature 98.5 F Pulse Rate 110 H 110 H Respiratory Rate 28 H Blood Pressure 165/74 H Pulse Oximetry 98 98 Intake & Output 02/17/18 02/17/18 02/18/18 06:59 18:59 06:59 Output Total 375 / 375 Balance -375 / -375 Weight 81.193 kg Output: Urine 375 / 375 Other: Date of Last Bowel Movement 02/15/18 Narrative: GEN: Elderly female, tachypneic and labored on Bipap but nods and shakes head in response to questions and follows commands HEENT: Bipap mask in place NECK: No JVD. RESP: Tachypneic, no wheeze, rales. Rhonchi L base. Equal bilaterally CV: regular, Sinus tachycardia on the monitor. Valve sound noted LLSB GI: abdomen distended, tender suprapubic, no tympany, bowel sounds present VASC: dressings in place groin bilaterally no hematoma NEURO: Eyes open to voice, no notable CN deficits, Moves all extremities to command. ankle plantar and dorsiflexion /5. - Urinary Catheter Management Indwelling Urethral Catheter Cath placed during this visit: yes Reason for continuing: Acute urinary retention Insertion date: 02/18/18 Insertion time: 05:26 Straight Cath placed during this visit: no Reason for continuing: Not indwelling catheter Assessment and Plan - Problem List (1) Hypercapnic respiratory failure Code(s): J96.92 - Respiratory failure, unspecified with hypercapnia Status: Acute (2) Urinary retention Code(s): R33.9 - Retention of urine, unspecified Status: Acute (3) Obstructive sleep apnea Code(s): G47.33 - Obstructive sleep apnea (adult) (pediatric) Status: Chronic (4) CAD (coronary artery disease) Code(s): I25.10 - Atherosclerotic heart disease of [place] coronary artery without angina pectoris Status: Acute (5) S/p TAVR (transcatheter aortic valve replacement), bioprosthetic Code(s): Z95.3 - Presence of xenogenic heart valve Status: Chronic (6) Acute on chronic diastolic (congestive) heart failure Code(s): I50.33 - Acute on chronic diastolic (congestive) heart failure Status : Acute (7) CKD (chronic kidney disease) stage 2, GFR 60-89 ml/min Code(s): N18.2 - Chronic kidney disease, stage 2 (mild) Status: Chronic (8) Hyperlipidemia Code(s): E78.5 - Hyperlipidemia, unspecified Status: Chronic - Assessment and Plan Plan: NEURO: Tylenol prn pain Avoid sedatives. RESP: KOMAL Acute hypercapneic respiratory failure Bipap adjusted to 15/5 and transferred to IMC. CXR stable Respiratory status significantly improved following relief of urinary obstruction so will defer additional workup at this time unless unable to wean off Bipap. CV: CAD with DORIAN RCA HLD hx severe now s/p TAVR Chronic diastolic heart failure bedside cardiac u/s with vigorous EF. EKG with lateral ST changes, seen previously Trending troponin, downtrend from 0.6. Obtain urgent Echo Dr. Rico updated. Continue ASA/Plavix/statin/betablocker/AceI Hold HCTZ GI: NPO FEN/RENAL: CKD Stage II Urinary retention Soto inserted, eventual voiding trials. U/a negative. Trend BMP. ENDO: DM Low dose Insulin sliding scale ac/hs Hypothyroidism Continue synthroid 137 mcg po daily ID:Monitor for si/sx infection. HEME: Hgb stable at 11. PROPH: Heparin 5000 subcut q12. famotidine for stress ulcer prophylaxis. ACCESS: PIV Discussed with [facility] nurse. Updated Dr. Rico Patient is critically ill with respiratory distress requiring titration of BIPAP and transfer to ICU to prevent further deterioration. She demonstrated improvement with relief of urinary retention. F/u Echo and repeat ABG. Called patient's daughter to notify of change in condition, no answer. CCT 45 minutes exclusive of separately billable procedures. (4) CAD (coronary artery disease) Qualifiers: Coronary Disease-Associated Artery/Lesion type: sycuan artery [place] vs. transplanted heart: sycuan heart Associated angina: without angina Qualified Code(s): I25.10 - Atherosclerotic heart disease of syc[place] coronary artery without angina pectoris
[2018-02-18] MEDS ORDERED: Levothyroxine 112 MCG Tablet PO SCH (06:00)
[2018-02-18 07:13] LABS: ABG Base Excess 4.9 mmol/L (-2-2); ABG PCO2 57 mmHg (38-42); ABG PO2 65 mmHG (61-120)
[2018-02-18 08:37] LABS: Bilirubin,Urine Negative (Negative); Clarity,Urine Clear (Clear); Color,Urine Yellow (Yellw/Straw); Glucose,Urine (UA) Negative (Negative); Leukocyte Esterase,Urine Negative (Negative); Mucus,Urine Few /lpf (Occasional); Nitrite,Urine Negative (Negative); Specific Gravity,Urine 1.016 (1.002-1.035)
[2018-02-18] MEDS ORDERED: LETROZOLE 2.5 MG PO SCH (09:00)
[2018-02-18] MEDS ORDERED: Non-Formulary Drug (Lisinopril-Hydrochlorothiazide [Lisinopril-Hydrochlorothiazide] 1 TAB) PO SCH (09:00)
[2018-02-18] MEDS ORDERED: Non-Formulary Drug (Levothyroxine [Levothyroxine] 137 MCG) PO SCH (09:00)
[2018-02-18] MEDS ORDERED: Acetaminophen 325 MG Tablet PO PRN (09:10)
[2018-02-18] MEDS: Heparin - SQ 10,000 UNITS/ML Vial SQ SCH ×2 (09:26→21:23)
[2018-02-18] MEDS: Lisinopril 10 MG Tablet PO SCH (09:27)
[2018-02-18] MEDS: Ferrous Sulfate 325 MG Tablet PO SCH (09:27)
[2018-02-18] MEDS: Gabapentin 100 MG Capsule PO SCH ×3 (09:28→17:09)
[2018-02-18] MEDS: Loratadine 10 MG Tablet PO SCH (09:28)
--- NOTE | 2018-02-18 11:13 | P.PNCC ---
Subjective Subjective Remarks/Hospital Course: 82-year-old female with a past medical history type 2 diabetes mellitus, hypertension, hypothyroidism, hyperlipidemia, KOMAL with poor CPAP adherence, CKD stage II, hx breast cancer s/p bilat mastectomy, CHF related to severe , CAD with DORIAN to RCA with recent TAVR 02/16. She was discharged 02/17 after arrangements were made for home health due to deconditioning. She presented to [facility] via [facility] with generalized weakness and shortness of breath. She was placed on Bipap due to increased work of breathing and hypercapneic and hypoxemic respiratory failure. CXR showed bibasilar atelectasis. She was admitted to [facility] under the hospitalist service. She was off Bipap on Venti mask about 6 hours and she was taking the Ventimask off and had a desaturation. Stefanit was called and I was asked to evaluate her. Repeat ABG with mildly worsening hypercapneic. She was tachypneic on Bipap, [place] [facility] She denies CP, states "she has to use the bathroom". Abdomen distended, placed Soto , >1.5 L of output upon insertion. Respiratory status improving. CXR stable. TAVR team updated.CKD Subjective 02/18 -currently resting in bed on BiPAP 15/5 at 40%. Appears comfortable. Aggressive pulmonary toilet initiated. Daughter will bring in her home CPAP machine later tonight. Objective Vital Signs / I&O: Vital Signs 02/17/18 18:16 02/17/18 18:21 02/17/18 18:36 Temperature 99.4 F Pulse Rate 106 H Respiratory Rate 17 Blood Pressure 150/67 H Pulse Oximetry 89 L 92 L 94 L 02/17/18 18:38 02/17/18 18:43 02/17/18 19:50 Temperature Pulse Rate 99 H Respiratory Rate 24 Blood Pressure 150/66 H Pulse Oximetry 91 L 96 96 02/17/18 22:00 02/17/18 23:00 02/17/18 23:36 Temperature Pulse Rate 93 H 92 H Respiratory Rate Blood Pressure Pulse Oximetry 94 L 02/18/18 00:00 02/18/18 01:00 02/18/18 02:00 Temperature 99.0 F Pulse Rate 92 H 98 H 96 H Respiratory Rate 16 Blood Pressure 135/64 Pulse Oximetry 98 02/18/18 03:00 02/18/18 03:13 02/18/18 03:15 Temperature Pulse Rate 110 H Respiratory Rate Blood Pressure Pulse Oximetry 98 98 02/18/18 04:00 02/18/18 04:15 02/18/18 06:00 Temperature 98.5 F Pulse Rate 110 H 100 H Respiratory Rate 28 H 22 Blood Pressure 165/74 H 146/63 H Pulse Oximetry 98 100 97 02/18/18 06:35 02/18/18 06:45 02/18/18 07:00 Temperature 100.3 F H Pulse Rate 103 H 106 H 100 H Respiratory Rate 24 30 H 25 H Blood Pressure 157/70 H 157/70 H Pulse Oximetry 98 98 99 02/18/18 07:21 02/18/18 08:00 02/18/18 09:00 Temperature Pulse Rate 96 H 101 H Respiratory Rate 21 27 H Blood Pressure 146/68 H 146/70 H Pulse Oximetry 100 100 97 02/18/18 09:58 02/18/18 10:00 Temperature Pulse Rate 94 H 93 H Respiratory Rate 22 25 H Blood Pressure 134/60 Pulse Oximetry 100 Intake & Output 02/17/18 02/18/18 02/18/18 18:59 06:59 18:59 Output Total 1775 / 1775 Balance -1775 / -1775 Weight 81.193 kg 80.6 kg Output: Urine 375 / 375 Urine Amount (Catheter) 1400 / 1400 Indwelling Urethral Catheter 1400 / 1400 Other: Date of Last Bowel Movement 02/15/18 02/15/18 Result Diagrams: 02/18/18 03:38 02/18/18 03:38 Imaging: Chest X-Ray 02/17/18 18:30 CONCLUSION: Minimal basilar atelectasis. No consolidation or significant effusion. Abdomen X-Ray 02/18/18 00:00 CONCLUSION: Mild ileus suspected. No perceptible obstruction. No free air. Chest X-Ray 02/18/18 03:37 CONCLUSION: Mild bibasilar atelectasis. Objective Remarks: GENERAL: 82-year-old female currently resting in bed on BiPAP in no acute distress SKIN: Warm and dry. No rash HEAD: Atraumatic. Normocephalic. EYES: Pupils equal and round about 3 mm bilaterally and reactive. No scleral icterus. No injection or drainage. ENT: No nasal bleeding or discharge. Mucous membranes pink and moist. Oropharynx without erythema NECK: Trachea midline. No JVD. CARDIOVASCULAR: Tachycardic, RR. S1, S2. No S4. Pansystolic murmur 1 out of 6 noted RESPIRATORY: Few fine crackles appreciated in the bases bilaterally left greater than right. No wheezing. GASTROINTESTINAL: Abdomen obese. Not tender to palpation on my examination. Hypoactive bowel sounds appreciated MUSCULOSKELETAL: Extremities trace bilateral lower extremity edema. No obvious deformities. NEUROLOGICAL: Awake and alert. No obvious cranial nerve deficits. Motor grossly within normal limits. Five out of 5 muscle strength in the arms and legs. On BiPAP with as such indecipherable speech. Assessment and Plan - Assessment and Plan Plan: NEURO/Psych: Acute encephalopathy likely secondary to CO2 retention Peripheral neuropathy Depression/anxiety History of bilateral cataract removal Currently on gabapentin 100 mg 3 times daily/continue. Acetaminophen 650 p.o. every 6 hours as needed fever RESP: KOMAL-compliance issues with CPAP at night? Acute hypercapneic respiratory failure OPD/severe by PFTs 2015 Bipap adjusted to 15/5 at 45% CXR stable Respiratory status significantly improved following relief of urinary obstruction so will defer additional workup at this time unless unable to wean off Bipap. CV: CAD with DORIAN RCA HLD Hypertension hx severe now s/p TAVR Chronic diastolic heart failure bedside cardiac u/s with vigorous EF. EKG with lateral ST changes, seen previously Trending troponin, downtrend from 0.6. Obtain urgent Echo has been obtained and reviewed by Dr. Jacky Rico updated. Currently on clopidogrel 75 mg daily and aspirin 81 mg daily. Continue Continue atorvastatin 20 mg daily for dyslipidemia Continue metoprolol succinate 12.5 mg daily and lisinopril 10 mg daily for hypertension GI: Ileus History of colonic diverticulosis Pantoprazole for GI prophylaxis Docusate sodium/senna 1 tablet twice daily for bowel regimen n.p.o. except for medications FEN/RENAL/: CKD Stage II Acute urinary retention Soto inserted, eventual voiding trials. U/a negative. Trend BMP. Renal ultrasound ENDO: DM Hypothyroidism Low dose aspart insulin sliding scale ac/hs Holding home medications of glipizide 10 mg daily metformin 1000 mg twice daily Continue levothyroxine 125 mcg daily. Noted TSH is 0.341. Normally on 137 mcg daily ID: Monitor for si/sx infection. Blood cultures 2, UA, sputum and influenza a and B ordered HEME: Thrombocytopenia History of bilateral breast cancer ER/ER positive. HGR 2 negative Continue letrozole 2.5 mg daily. Monitor CBC daily. Follow trends. MSK: Elevated BMI Osteopenia PT evaluate and treat Weight loss encouraged PROPH: Heparin 5000 subcut q12. Pantoprazole for stress ulcer prophylaxis. ACCESS: PIV Discussed with daughter at bedside and Dr. Rico and Dr. Aguilar. 15 additional minutes time spent
[2018-02-18 11:14] LABS: Thyroid Stimulating Hormone 0.341 uIU/mL (0.358-3.740); Troponin I 0.36 ng/mL (0.02-0.05)
--- NOTE | 2018-02-18 12:21 | ECHRPT ---
Indication: Shortness of Breath CONCLUSIONS Normal left ventricular size. Wall thickness is normal. The left ventricular systolic function is normal with an estimated ejection fraction in the range of 55-60%. Trace mitral valve regurgitation. Status post transcatheter aortic valve replacement. No stenosis. No perivalvular leak or aortic insufficiency. There is trace tricuspid valve regurgitation. The estimated pulmonary arterial pressure is 39 mmHg. BP: / HR: Rhythm: MEASUREMENTS (Male / Female) Normal Values Technical Quality:Fair 2D ECHO LV Diastolic Diameter PLAX 3.7 cm 4.2 - 5.9 / 3.9 - 5.3 cm LV Systolic Diameter PLAX 2.8 cm IVS Diastolic Thickness 1.1 cm 0.6 - 1.0 / 0.6 - 0.9 cm LVPW Diastolic Thickness 1.1 cm 0.6 - 1.0 / 0.6 - 0.9 cm LV Relative Wall Thickness 0.6 RV Internal Dim ED PLAX 2.7 cm LVOT Diameter 1.7 cm Aortic Root Diameter 2.4 cm LA Systolic Diameter LX 3.1 cm 3.0 - 4.0 / 2.7 - 3.8 cm DOPPLER AV Peak Velocity 282.3 cm/s AV Peak Gradient 31.9 mmHg AV Mean Gradient 16.0 mmHg AV Velocity Time Integral 49.1 cm LVOT Peak Velocity 253.0 cm/s LVOT Peak Gradient 25.6 mmHg AV Area Cont Eq pk 2.0 cm MV Peak Velocity 203.0 cm/s MV Peak Gradient 16.5 mmHg MV Mean Velocity 124.0 cm/s MV Mean Gradient 7.0 mmHg Mitral E Point Velocity 105.0 cm/s Mitral A Point Velocity 159.0 cm/s Mitral E to A Ratio 0.7 LV E' Lateral Velocity 6.6 cm/s Mitral E to LV E' Lateral Ratio 15.8 LV E' Septal Velocity 5.9 cm/s Mitral E to LV E' Septal Ratio 17.6 TR Peak Velocity 269.0 cm/s TR Peak Gradient 28.9 mmHg Right Atrial Pressure 10.0 mmHg Pulmonary Artery Systolic Pressu 38.9 mmHg Right Ventricular Systolic Press 38.9 mmHg PV Peak Velocity 130.5 cm/s PV Peak Gradient 6.8 mmHg FINDINGS LEFT VENTRICLE Normal left ventricular size. Wall thickness is normal. The left ventricular systolic function is normal with an estimated ejection fraction in the range of 55-60%. RIGHT VENTRICLE Normal right ventricular size and systolic function. LEFT ATRIUM The left atrial size is normal. RIGHT ATRIUM The right atrial size is normal. ATRIAL SEPTUM Normal atrial septal thickness without atrial level shunting by limited color doppler interrogation. AORTA The aortic root and proximal ascending aorta are normal in size on limited imaging. MITRAL VALVE Mitral annular calcification is present. Trace mitral valve regurgitation. AORTIC VALVE Status post transcatheter aortic valve replacement. No stenosis. No perivalvular leak or aortic insufficiency. TRICUSPID VALVE There is trace tricuspid valve regurgitation. The estimated pulmonary arterial pressure is 39 mmHg. PULMONARY VALVE No pulmonary valve regurgitation or stenosis. VESSELS The inferior vena cava is normal in size. PERICARDIUM No pericardial effusion. Mau Rico MD, FACC (Electronically Signed) Final Date:18 February 2018 12:21
[2018-02-18 12:32] LABS: ABG Base Excess 3.9 mmol/L (-2-2); ABG PCO2 54 mmHg (38-42); ABG PO2 66 mmHG (61-120)
[2018-02-18] MEDS: hydroCHLOROthiazide 25 MG Tablet PO SCH (12:54)
--- NOTE | 2018-02-18 14:56 | US ---
EXAM DATE: 02/18/2018 2:47 PM EDT AGE/SEX: 82 years / Female INDICATIONS: Urinary retention. CLINICAL DATA: This is the patient's initial encounter. Patient reports that signs and symptoms have been present for 2 days and indicates a pain score of Nonresponsive. MEDICAL/SURGICAL HISTORY: Diabetes mellitus type II. Hypothyroidism. Hypertension. Aortic va lve regurgitation. Chronic diastolic (congestive)heart failure. CKD stage 2. Breast cancer. Hyperlipi demia. Heart failure. Aortic valve stenosis. Cholecystectomy. Tonsillectomy. Mastectomy. TAVR. Perc utaneous coronary intervention. COMPARISON: [facility], US ABDOMEN COMPLETE, 08/03/2014. . MEASUREMENTS: Right Kidney:__9.2 x 5.4 x 5.3 cm Left Kidney:__10.3 x 4.4 x 5.5 cm FINDINGS: Right Kidney: Normal echotexture and cortical thickness. No mass or hydronephrosis. Right renal cyst measuring 3.3 x 3.4 x 3.4 cm and 1.2 x 1.2 x 1.0 cm are again noted. Left Kidney: Normal echotexture and cortical thickness. No mass or hydronephrosis. Left renal cyst me asuring 2.5 x 1.5 x 1.9 cm and 1.1 x 1.0 x 1.2 cm are again noted. Minimal perinephric fluid is noted . Bladder: Soto catheter is present. Bladder decompressed. Other: There is increased echogenicity of the liver suggesting fatty infiltration or diffuse hepatoc ellular disease. CONCLUSION: 1. Minimal perinephric fluid on the left which is nonspecific. 2. Multiple bilateral renal cysts. 3. No hydronephrosis or solid renal mass. 4. Limited evaluation of the urinary bladder which is nondistended and contains a Soto catheter. 5. Echogenic liver suggesting fatty infiltration or diffuse hepatocellular disease. Electronically signed by: Víctor Dobson MD 02/18/2018 2:55 PM EDT
--- NOTE | 2018-02-18 17:11 | CT ---
EXAM DATE: 02/18/2018 4:54 PM EDT AGE/SEX: 82 years / Female INDICATIONS: Altered mental status. CLINICAL DATA: This is the patient's initial encounter. Patient reports that signs and symptoms have been present for 1 day and indicates a pain score of 0/10. MEDICAL/SURGICAL HISTORY: Congestive heart failure. Renal failure, chronic. Carcinoma, breast. Ap pendectomy. Mastectomy, bilateral. RADIATION DOSE: 56.35 CTDI (mGy) COMPARISON: No prior exams available for comparison. TECHNIQUE: CT of the head without contrast. Using automated exposure control and adjustment of the mA and/or kV according to patient size, radiation dose was kept as low as reasonably achievable to ob tain optimal diagnostic quality images. DICOM format image data is available electronically for revi ew and comparison. FINDINGS: Cerebrum: The ventricles are normal for age. No evidence of midline shift, mass lesion, acute hemor rhage, or acute large vessel cortically based infarction. No extraaxial fluid collections are seen. Posterior Fossa: The cerebellum and brainstem are intact. The 4th ventricle is midline. The cerebe llopontine angle is unremarkable. Extracranial: Evidence of bilateral cataract surgery. Small air-fluid level in the left sphenoid sin us, suggesting sinusitis. Skull: The calvaria is intact. No evidence of skull fracture. CONCLUSION: 1. No acute intracranial findings. 2. Small air-fluid level in left sphenoid sinus, suggesting sinusitis. . Electronically signed by: Onelia Ndiaye MD 02/18/2018 5:09 PM EDT
--- NOTE | 2018-02-18 19:04 | MB ---
cc: Samuel Aguilar DO DATE: 02/18/2018 REASON FOR CONSULTATION: Shortness of breath status post TAVR. HISTORY OF PRESENT ILLNESS: Diya Agee is a pleasant 82-year-old female who sees my partner, Dr. Dasilva in the office and underwent a transfemoral West Alvaro S3-26 mm TAVR. This was done on 02/16/2018 and then she was discharged on 02/17/2018. Apparently, she went home and the next day, she was having generalized weakness and shortness of breath per the daughter. She has not been using her CPAP overnight and so on arrival to the ER, she was placed on BiPAP. She also had urinary retention and a Soto catheter was placed and at that time she urinated 1.7 liters. She is still currently on BiPAP when seeing her and is somewhat lethargic, but awakens to questions. PAST MEDICAL HISTORY: 1. Severe aortic stenosis. 2. Obstructive sleep apnea. 3. Diabetes mellitus type 2. 4. Hypothyroidism. 5. Hyperlipidemia. 6. Hypertension. 7. Chronic diastolic heart failure. 8. Coronary artery disease. 9. Chronic kidney disease, stage II. PAST SURGICAL HISTORY: 1. Transfemoral TAVR with an West Alvaro S3 valve, 26 mm (02/16/2018). 2. Cardiac catheterization (01/19/2018) with Resolute drug-eluting stent (2.5 x 12) to the RCA. Left main has mild luminal irregularities. Left circumflex has mild luminal irregularities. The LAD has an aneurysmal portion of the proximal section and the remainder has mild luminal irregularities. 3. Electrophysiology study (02/16/2018) negative for SVT with normal AV pablo conduction. 4. History of bilateral mastectomy. 5. Appendectomy. 6. Tonsillectomy. ALLERGIES: NO KNOWN DRUG ALLERGIES. MEDICATIONS: 1. Lisinopril/hydrochlorothiazide 10/12.5 mg daily. 2. Potassium 10 mEq daily. 3. Synthroid 137 mcg daily. 4. Letrozole 2.5 mg daily. 5. Glipizide 10 mg daily. 6. Gabapentin 100 mg t.i.d. 7. Claritin 10 mg daily. 8. Lipitor 20 mg daily. 9. Metformin 1000 mg b.i.d. 10. Plavix 75 mg daily. 11. Toprol-XL 12.5 mg daily. 12. Aspirin 81 mg daily. 13. Iron 325 mg daily. FAMILY HISTORY: Denies premature coronary artery disease or sudden cardiac within the family. SOCIAL HISTORY: The patient is a former smoker. No history of alcohol or drug abuse. REVIEW OF SYSTEMS: Overall, review of systems is difficult as the patient is lethargic, but pertinent positives and negatives as above, otherwise negative. PHYSICAL EXAMINATION: VITAL SIGNS: Temperature 98.9, heart rate 89, blood pressure 100/54, respirations 19, pulse oximetry 100% on BiPAP. GENERAL: The patient is somewhat lethargic, but awakens to questions. She is currently comfortable on BiPAP. HEENT: Extraocular muscles intact. NECK: Supple. No JVD at 45 degrees. No carotid bruits heard bilaterally. Carotid upstroke is brisk in nature. HEART: Regular rate and rhythm. Positive first and second heart sounds with a 1/6 crescendo decrescendo murmur to the right sternal border. LUNGS: Decreased breath sounds bilaterally. ABDOMEN: Soft, nontender, nondistended. No organomegaly noted. EXTREMITIES: Show 1+ pitting edema bilaterally. Bilateral groins have minimal ecchymosis with no hematoma noted. Femoral and distal pulses intact bilaterally. NEUROLOGIC: The patient is somewhat lethargic, but awakens to questions. Able to move all extremities. SKIN: Warm, dry and intact. OSTEOPATHIC: Mild lordosis, no kyphoscoliosis or paraspinal tender points. LABORATORY DATA: Hemoglobin 11.6, hematocrit 35.7, platelets 117. potassium 4.1, BUN 18, creatinine 1.04. Troponin 0.67, decreasing to 0.36. Electrocardiogram (02/18/2018 at 0332): Sinus tachycardia, LVH with probable secondary ST-T wave changes. No significant difference from previous. IMPRESSION: 1. Acute hypercapnic respiratory failure. 2. Urinary retention, most likely leading to fluid overload state. 3. Acute encephalopathy secondary to CO2 retention. 4. History of severe aortic stenosis, status post transfemoral transcatheter aortic valve replacement with an West Alvaro 26 mm S3 valve (02/16/2018). 5. Coronary artery disease with history of right coronary artery stenting as above. 6. Chronic diastolic heart failure. RECOMMENDATIONS: 1. Ms. Agee presented with shortness of breath. This is most likely due to COPD. 2. Overall, agree with BiPAP and supportive care. 3. She did have urinary retention, but a Soto was placed and she placed out 1.7 liters. We will continue to follow her fluid status and she may need further diuresis depending on her clinical state. 4. We will check a 2-D echo to look at her overall left ventricular function, cardiac structure and her TAVR valve. 5. She will continue on aspirin and Plavix for her recent TAVR, as well as her coronary artery disease with PCI. 6. Further recommendations will be made based on the hospital course. Thank you for allowing me to see Diya Agee. If there are any questions, please do not hesitate to call. Samuel Aguilar DO VGP/ct , 06:22 PM , 06:38 PM
[2018-02-18 20:41] LABS: Calcium 8.3 mg/dL (8.5-10.1); Potassium 3.9 meq/L (3.5-5.1)
--- NOTE | 2018-02-19 01:07 | ECG ---
Date Performed: 02/18/2018 Time Performed: 03:32:10 PTAGE: 82 years EKG: Sinus tachycardia Left ventricular hypertrophy Extensive ST-T changes may be due to hypertr ophy and/or ischemia Abnormal ECG PREVIOUS TRACING : 02/18/2018 00.28 Since the previous tracing, no significant change noted DOCTOR: Samuel Aguilar Interpretating Date/Time 02/19/2018 01:06:11
[2018-02-19] MEDS ORDERED: Chlorhexidine Gluconate 2% 1 Pack (2 Cloths) TOPICAL PRN (04:00)
[2018-02-19] MEDS: Insulin NovoLOG Aspart Correctional Sugar Inj SQ SCH ×5 (04:37→20:23)
--- NOTE | 2018-02-19 05:16 | XR ---
EXAM DATE: 02/19/2018 5:12 AM EDT AGE/SEX: 82 years / Female INDICATIONS: Shortness of breath, possible pulmonary disease. CLINICAL DATA: This is the patient's subsequent encounter. Patient reports that signs and symptoms h ave been present for 2 days and indicates a pain score of Nonresponsive. MEDICAL/SURGICAL HISTORY: Diabetes mellitus type II. Hyperthyroidism. Hypertension. CHF. CKD . Breast ca. Cholecystectomy. Tonsillectomy. Coronary artery stent. Mastectomy. TAVR. COMPARISON: C, CHEST 1V SINGLE AP, 02/18/2018. . FINDINGS: Trace bibasilar atelectasis again noted. No pleural effusion. No pneumothorax. Heart size stable, within normal limits. Tortuous and atherosclerotic aorta again seen. CONCLUSION: No significant change. Electronically signed by: Rayshawn Lang MD 02/19/2018 5:15 AM EDT
[2018-02-19] MEDS: Chlorhexidine Gluconate 2% 1 Pack (2 Cloths) TOPICAL SCH (06:11)
[2018-02-19] MEDS: Levothyroxine 125 MCG Tablet PO SCH (06:11)
[2018-02-19 06:19] LABS: Baso # (Auto) 0.1 th/mm3 (0.0-0.2); Eos # (Auto) 0.1 th/mm3 (0.0-0.4); Eos % (Auto) 2.1 % (0.0-4.0); Hematocrit 29.9 % (35.0-46.0); Hemoglobin 10.2 gm/dL (11.6-15.3); Lymph # (Auto) 1.3 th/mm3 (1.0-4.8); Lymph % (Auto) 23.8 % (9.0-44.0); Mean Corpuscular HGB Conc 34.1 % (32.0-36.0); Mean Corpuscular Hemoglobin 32.3 pg (27.0-34.0); Mean Corpuscular Volume 94.5 fL (80.0-100.0); Mean Platelet Volume 8.3 fL (7.0-11.0); Mono # (Auto) 0.7 th/mm3 (0.0-0.9); Mono % (Auto) 12.7 % (0.0-8.0); Neut # (Auto) 3.3 th/mm3 (1.8-7.7); Neut % (Auto) 60.4 % (16.0-70.0); Platelet Count 126 th/mm3 (150-450); Red Blood Count 3.16 mil/mm3 (4.00-5.30); Red Cell Distribution Width 15.7 % (11.6-17.2); White Blood Count 5.5 th/mm3 (4.0-11.0)
[2018-02-19 06:34] LABS: Albumin 2.6 g/dL (3.4-5.0); Anion Gap 9 meq/L (5-15); Aspartate Aminotransferase 25 U/L (15-37); Blood Urea Nitrogen 16 mg/dL (7-18); Calcium 8.1 mg/dL (8.5-10.1); Chloride 98 meq/L (98-107); Glomerular Filtration Rate 68 mL/min (>89); Glucose,Random 139 mg/dL (74-106); Magnesium 2.1 mg/dL (1.5-2.5); Potassium 3.7 meq/L (3.5-5.1); Sodium 137 meq/L (136-145)
[2018-02-19 07:50] LABS: Phosphorus 2.4 mg/dL (2.5-4.9)
[2018-02-19] MEDS: Loratadine 10 MG Tablet PO SCH (08:52)
[2018-02-19] MEDS: Heparin - SQ 10,000 UNITS/ML Vial SQ SCH ×2 (08:52→20:22)
[2018-02-19] MEDS: Ferrous Sulfate 325 MG Tablet PO SCH (08:52)
[2018-02-19] MEDS: Lisinopril 10 MG Tablet PO SCH (08:53)
[2018-02-19] MEDS: Gabapentin 100 MG Capsule PO SCH (08:53)
[2018-02-19 09:02] LABS: Alanine Aminotransferase 24 U/L (10-53)
[2018-02-19 09:04] LABS: Alkaline Phosphatase 62 U/L (45-117); Total Protein 6.4 g/dL (6.4-8.2)
--- NOTE | 2018-02-19 09:30 | P.PNCC ---
Subjective Subjective Remarks/Hospital Course: 82-year-old female with a past medical history type 2 diabetes mellitus, hypertension, hypothyroidism, hyperlipidemia, KOMAL with poor CPAP adherence, CKD stage II, hx breast cancer s/p bilat mastectomy, CHF related to severe , CAD with DORIAN to RCA with recent TAVR 02/16. She was discharged 02/17 after arrangements were made for home health due to deconditioning. She presented to [facility] ED via [facility] with generalized weakness and shortness of breath. She was placed on Bipap due to increased work of breathing and hypercapneic and hypoxemic respiratory failure. CXR showed bibasilar atelectasis. She was admitted to [facility] under the hospitalist service. She was off Bipap on Venti mask about 6 hours and she was taking the Ventimask off and had a desaturation. Roney was called and I was asked to evaluate her. Repeat ABG with mildly worsening hypercapneic. She was tachypneic on Bipap, transferred to [facility]. She denies CP, states "she has to use the bathroom". Abdomen distended, placed Soto , >1.5 L of output upon insertion. Respiratory status improving. CXR stable. TAVR team updated.CKD 02/18 -currently resting in bed on BiPAP 15/5 at 40%. Appears comfortable. Aggressive pulmonary toilet initiated. Daughter will bring in her home CPAP machine later tonight. Subjective 02/19: On BiPAP overnight with FiO2 of 35%. More awake and alert today. In and out of lucency. CT brain revealed left-sided sinusitis of the sphenoid region. Otherwise essentially unremarkable workup. Influenza still pending. Sputum still pending. UA negative for acute infection. Objective Vital Signs / I&O: Vital Signs 02/18/18 09:58 02/18/18 10:00 02/18/18 11:00 Temperature 98.8 F Pulse Rate 94 H 93 H 93 H Respiratory Rate 22 25 H 30 H Blood Pressure 134/60 129/53 L Pulse Oximetry 100 99 02/18/18 11:01 02/18/18 11:15 02/18/18 12:00 Temperature 98.9 F Pulse Rate 93 H 87 89 Respiratory Rate 27 H 12 19 Blood Pressure 129/53 L 120/58 L 100/54 L Pulse Oximetry 100 99 100 02/18/18 12:15 02/18/18 12:40 02/18/18 12:41 Temperature Pulse Rate 92 H 91 H Respiratory Rate 24 15 Blood Pressure 115/54 L 119/57 L Pulse Oximetry 100 96 99 02/18/18 12:45 02/18/18 13:00 02/18/18 13:15 Temperature Pulse Rate 92 H 90 90 Respiratory Rate 21 18 18 Blood Pressure 123/58 L 121/58 L 140/64 Pulse Oximetry 97 98 98 02/18/18 13:30 02/18/18 13:45 02/18/18 14:00 Temperature Pulse Rate 91 H 91 H 88 Respiratory Rate 19 19 18 Blood Pressure 127/61 114/54 L 104/52 L Pulse Oximetry 98 98 98 02/18/18 14:15 02/18/18 14:30 02/18/18 14:45 Temperature Pulse Rate 87 86 88 Respiratory Rate 11 L 17 18 Blood Pressure 101/51 L 112/53 L 124/59 L Pulse Oximetry 99 98 97 02/18/18 15:00 02/18/18 15:15 02/18/18 15:18 Temperature Pulse Rate 86 86 85 Respiratory Rate 19 20 20 Blood Pressure 110/56 L 133/60 Pulse Oximetry 98 99 02/18/18 15:55 02/18/18 16:00 02/18/18 16:01 Temperature 97.8 F Pulse Rate 86 86 Respiratory Rate 21 20 Blood Pressure 101/51 L 101/51 L Pulse Oximetry 97 98 98 02/18/18 16:15 02/18/18 16:31 02/18/18 16:32 Temperature Pulse Rate 86 86 87 Respiratory Rate 20 16 22 Blood Pressure 114/56 L 121/57 L 133/63 Pulse Oximetry 97 93 L 98 02/18/18 16:45 02/18/18 17:00 02/18/18 17:15 Temperature Pulse Rate 90 92 H 92 H Respiratory Rate 26 H 21 21 Blood Pressure 129/61 146/59 H 141/65 H Pulse Oximetry 89 L 94 L 94 L 02/18/18 17:30 02/18/18 17:45 02/18/18 18:00 Temperature Pulse Rate 90 91 H 89 Respiratory Rate 16 13 14 Blood Pressure 137/63 111/52 L 151/68 H Pulse Oximetry 93 L 94 L 94 L 02/18/18 19:00 02/18/18 20:00 02/18/18 20:23 Temperature 100.0 F H Pulse Rate 97 H 105 H Respiratory Rate 11 L 23 Blood Pressure 106/49 L 159/69 H Pulse Oximetry 95 91 L 94 L 02/18/18 20:29 02/18/18 21:00 02/18/18 22:00 Temperature Pulse Rate 106 H 107 H 104 H Respiratory Rate 22 17 17 Blood Pressure 141/63 H 117/60 Pulse Oximetry 92 L 94 L 02/18/18 23:00 02/19/18 00:00 02/19/18 00:07 Temperature 99.9 F H Pulse Rate 100 H 97 H 99 H Respiratory Rate 12 21 17 Blood Pressure 156/67 H 106/53 L Pulse Oximetry 94 L 98 02/19/18 00:34 02/19/18 01:00 02/19/18 02:00 Temperature Pulse Rate 96 H 99 H Respiratory Rate 21 26 H Blood Pressure 136/62 119/59 L Pulse Oximetry 98 99 100 02/19/18 03:00 02/19/18 03:57 02/19/18 04:00 Temperature 99.8 F H Pulse Rate 96 H 97 H 97 H Respiratory Rate 17 24 25 H Blood Pressure 128/57 L 136/63 Pulse Oximetry 98 96 98 02/19/18 05:00 02/19/18 06:00 02/19/18 07:17 Temperature Pulse Rate 100 H 100 H 97 H Respiratory Rate 28 H 30 H 26 H Blood Pressure 133/63 132/62 Pulse Oximetry 100 100 100 Intake & Output 02/18/18 02/19/18 02/19/18 18:59 06:59 18:59 Intake Total 100 / 100 0 / 0 Output Total 1300 / 1300 550 / 550 Balance -1200 / -1200 -550 / -550 Weight 80 kg Intake: Oral 100 / 100 0 / 0 Output: Urine Amount (Catheter) 1300 / 1300 550 / 550 Indwelling Urethral Catheter 1300 / 1300 550 / 550 Other: Date of Last Bowel Movement 02/15/18 02/15/18 # Bowel Movements 0 0 Result Diagrams: 02/19/18 05:50 02/19/18 05:50 Imaging: Chest X-Ray 02/17/18 18:30 CONCLUSION: Minimal basilar atelectasis. No consolidation or significant effusion. Abdomen X-Ray 02/18/18 00:00 CONCLUSION: Mild ileus suspected. No perceptible obstruction. No free air. Abdomen/Bladder Ultrasound 02/18/18 00:00 CONCLUSION: 1. Minimal perinephric fluid on the left which is nonspecific. 2. Multiple bilateral renal cysts. 3. No hydronephrosis or solid renal mass. 4. Limited evaluation of the urinary bladder which is nondistended and contains a Soto catheter. 5. Echogenic liver suggesting fatty infiltration or diffuse hepatocellular disease. Chest X-Ray 02/18/18 03:37 CONCLUSION: Mild bibasilar atelectasis. Head CT 02/18/18 15:39 CONCLUSION: 1. No acute intracranial findings. 2. Small air-fluid level in left sphenoid sinus, suggesting sinusitis. . Chest X-Ray 02/19/18 06:00 CONCLUSION: No significant change. Objective Remarks: GENERAL: 82-year-old female currently resting in bed on BiPAP in no acute distress SKIN: Warm and dry. No rash HEAD: Atraumatic. Normocephalic. EYES: Pupils equal and round about 3 mm bilaterally and reactive. No scleral icterus. No injection or drainage. ENT: No nasal bleeding or discharge. Mucous membranes pink and moist. Oropharynx without erythema NECK: Trachea midline. No JVD. CARDIOVASCULAR: Tachycardic, RR. S1, S2. No S4. Pansystolic murmur 1 out of 6 noted RESPIRATORY: Few fine crackles appreciated in the bases bilaterally left greater than right. No wheezing. GASTROINTESTINAL: Abdomen obese. Not tender to palpation on my examination. Hypoactive bowel sounds appreciated MUSCULOSKELETAL: Extremities trace bilateral lower extremity edema. No obvious deformities. NEUROLOGICAL: Awake and alert. No obvious cranial nerve deficits. Motor grossly within normal limits. Five out of 5 muscle strength in the arms and legs. Speech normal. Assessment and Plan - Assessment and Plan Plan: NEURO/Psych: Acute encephalopathy likely secondary to CO2 retention Peripheral neuropathy Depression/anxiety History of bilateral cataract removal Currently on gabapentin 100 mg 3 times daily/we will hold with altered mental status Acetaminophen 650 p.o. every 6 hours as needed fever CT brain revealed left sphenoid sinusitis otherwise unremarkable. Avoid sedatives RESP: KOMAL-compliance issues with CPAP at night? 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 CV: CAD with DORIAN RCA HLD Hypertension hx severe now s/p TAVR Chronic diastolic heart failure Echocardiogram revealed EF 55-60%. Trace MR/TR. PAP 29. TAVR no leak Trending troponin, downtrend from 0.6. Dr. Rico updated. Dr. Aguilar seen currently Currently on clopidogrel 75 mg daily and aspirin 81 mg daily. Continue Continue atorvastatin 20 mg daily for dyslipidemia Continue metoprolol succinate 12.5 mg daily and lisinopril 10 mg daily for hypertension GI: Ileus History of colonic diverticulosis Pantoprazole for GI prophylaxis Docusate sodium/senna 1 tablet twice daily for bowel regimen n.p.o. except for medications until cleared by speech therapy Fatty liver on ultrasound. Ammonia level less than 10 FEN/RENAL/: CKD Stage II Acute urinary retention Bilateral renal cyst Soto inserted, eventual voiding trials. U/a negative. Trend BMP. Renal ultrasound - Minimal perinephric fluid on the left which is nonspecific. Multiple bilateral renal cysts. No hydronephrosis or solid renal mass. Limited evaluation of the urinary bladder which is nondistended and contains a Soto catheter. Echogenic liver suggesting fatty infiltration or diffuse hepatocellular disease. ENDO: DM Hypothyroidism Low dose aspart insulin sliding scale ac/hs Holding home medications of glipizide 10 mg daily metformin 1000 mg twice daily Continue levothyroxine 125 mcg daily. Noted TSH is 0.341. Normally on 137 mcg daily ID: Left sphenoid sinusitis Monitor for signs and symptomatology infection. We will start on ceftriaxone 1 g IV every 24 hours. Blood cultures 2, UA, sputum and influenza a and B ordered. 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 Monitor CBC daily. Follow trends. MSK: Elevated BMI Osteopenia PT evaluate and treat Weight loss encouraged PROPH: Heparin 5000 subcut q12. Pantoprazole for stress ulcer prophylaxis. ACCESS: PIV Level 2 follow-up. Patient stable from critical care medicine standpoint. Assign care to hospitalist in a.m. 02/20
[2018-02-19] MEDS: Pantoprazole Inj 40 MG Vial IV.PUSH SCH (09:59)
[2018-02-19] MEDS ORDERED: Potassium Phosphate Inj 30 MMOL in Sodium Chlor 0.9% Inj 250 ML IV.SIG ONE (11:00)
--- NOTE | 2018-02-19 13:00 | ECG ---
Date Performed: 02/18/2018 Time Performed: 00:28:14 PTAGE: 82 years EKG: Sinus rhythm Left ventricular hypertrophy Extensive ST-T changes may be due to hypertrophy and/or ischemia Abnorm al ECG PREVIOUS TRACING : 02/17/2018 18.28 Since the previous tracing, no significant change noted DOCTOR: Samuel Aguilar Interpretating Date/Time 02/19/2018 12:58:58
--- NOTE | 2018-02-19 13:19 | ECG ---
Date Performed: 02/17/2018 Time Performed: 18:28:31 PTAGE: 82 years EKG: SINUS TACHYCARDIA POSSIBLE LEFT ATRIAL ENLARGEMENT ST DEVIATION AND MODERATE T-WAVE ABNORMA LITY, CONSIDER LATERAL ISCHEMIA ABNORMAL ECG PREVIOUS TRACING : 02/17/2018 05.18 Compared to previous tracing, lateral T wave more prominen t DOCTOR: Samuel Aguilar Interpretating Date/Time 02/19/2018 13:17:44
--- NOTE | 2018-02-19 13:54 | P.PNCA ---
Subjective Interval history: More awake today Breathing much better No complaints Medications and Allergies Active Medications: Active Medications Acetaminophen (Tylenol) 650 mg PO Q6H PRN PRN Reason: Temp > 100.4 Last Admin: 02/18/18 09:39 Dose: 650 mg Albuterol (Duoneb Neb (Patrick)) 1 ampul NEB Q4HR NEB [facility] Last Admin: 02/19/18 11:05 Dose: 1 ampul Albuterol (Albuterol Neb (Prn)) 2.5 mg NEB Q2HR NEB PRN PRN Reason: DYSPNEA Aspirin (Ecotrin) 81 mg PO DAILY [facility] Last Admin: 02/19/18 08:53 Dose: 81 mg Atorvastatin Calcium (Lipitor) 20 mg PO DAILY [facility] Last Admin: 02/19/18 08:53 Dose: 20 mg Bisacodyl (Dulcolax Supp) 10 mg RECTAL DAILY PRN PRN Reason: SEVERE CONSITIPATION Chlorhexidine Gluconate (Chlorhexidine 2% Cloth) 3 pack TOPICAL DAILY@0400 [facility] Stop: 02/24/18 03:59 Last Admin: 02/19/18 06:11 Dose: 3 pack Chlorhexidine Gluconate (Chlorhexidine 2% Cloth) 3 pack TOPICAL DAILY@0400 PRN PRN Reason: Extra cloth needed Stop: 02/24/18 03:59 Clopidogrel Bisulfate (Plavix) 75 mg PO DAILY [facility] Last Admin: 02/19/18 08:53 Dose: 75 mg Dextrose (D50w Vial) 50 ml IV.PUSH UNSCH PRN PRN Reason: PER HYPOGLYCEMIA PROTOCOL Ferrous Sulfate (Ferosul) 325 mg PO DAILY [facility] Last Admin: 02/19/18 08:52 Dose: 325 mg Fluticasone/Vilanterol (Breo Ellipta 100/25 Mcg Inh) 1 puff INH DAILY [facility] Last Admin: 02/19/18 08:54 Dose: Not Given Gabapentin (Neurontin) 100 mg PO TID [facility] Last Admin: 02/19/18 08:53 Dose: 100 mg Glucagon (Glucagon Inj) 1 mg OTHER PRN PRN PRN Reason: for Hypoglycemia Protocol Heparin Sodium (Porcine) (Heparin Inj) 5,000 units SQ Q12HR [facility] Last Admin: 02/19/18 08:52 Dose: 5,000 units Hydrochlorothiazide (Hydrodiuril) 12.5 mg PO DAILY [facility] Last Admin: 02/18/18 12:54 Dose: Not Given Potassium Phosphate 30 mmol/ (Sodium Chloride) 260 mls @ 43.333 mls/hr IV.SIG ONCE ONE Stop: 02/19/18 16:59 Last Admin: 02/19/18 11:00 Dose: 43.33 mls/hr Ceftriaxone Sodium 1,000 mg/ (Sodium Chloride) 100 mls @ 200 mls/hr IV.SIG Q24H [facility] Last Admin: 02/19/18 09:59 Dose: 200 mls/hr Insulin Aspart (Novolog Insulin Correctional Sugar Inj) 0 unit SQ ACHS AND 3AM PATRICK; Protocol Last Admin: 02/19/18 12:27 Dose: 1 unit Levothyroxine Sodium (Synthroid) 125 mcg PO DAILY@0600 [facility] Last Admin: 02/19/18 06:11 Dose: 125 mcg Lisinopril (Prinivil) 10 mg PO DAILY [facility] Last Admin: 02/19/18 08:53 Dose: 10 mg Loratadine (Claritin) 10 mg PO DAILY [facility] Last Admin: 02/19/18 08:52 Dose: 10 mg Metoprolol Succinate (Toprol Xl) 12.5 mg PO DAILY [facility] Last Admin: 02/19/18 08:52 Dose: 12.5 mg Ondansetron HCl (Zofran Inj) 4 mg IV.PUSH Q6H PRN PRN Reason: NAUSEA OR VOMITING Pantoprazole Sodium (Protonix Inj) 40 mg IV.PUSH Q24H [facility] Last Admin: 02/19/18 09:59 Dose: 40 mg Pt Own Med: Letrozole 2.5 Mg Tablet 0 each PO DAILY [facility] Sennosides (Senokot) 17.2 mg PO Q12H PRN PRN Reason: Moderate Constipation Sodium Chloride (Ns Flush) 2 ml IV.FLUSH UNSCH PRN PRN Reason: FLUSH AFTER USING IV ACCESS Allergies Allergy/AdvReac Type Severity Reaction Status Date / Time No Known Allergies Allergy Verified 02/16/18 05:43 Home Medications Medication Instructions Recorded Confirmed Type atorvastatin 20 mg PO DAILY 01/19/18 02/17/18 History gabapentin 100 mg PO TID 01/19/18 02/17/18 History glipizide 10 mg PO DAILY 01/19/18 02/17/18 History letrozole 2.5 mg PO DAILY 01/19/18 02/17/18 History levothyroxine 137 mcg PO DAILY 01/19/18 02/17/18 History lisinopril-hydrochlorothiazide 1 tab PO DAILY 01/19/18 02/17/18 History loratadine [Claritin] 10 mg PO DAILY 01/19/18 02/17/18 History metformin 1,000 mg PO BID 01/19/18 02/17/18 History potassium chloride [Klor-Con 10] 10 meq PO DAILY 01/19/18 02/17/18 History Physical Exam Vital signs: Vital Signs 02/18/18 14:00 02/18/18 14:15 02/18/18 14:30 Temperature Pulse Rate 88 87 86 Respiratory Rate 18 11 L 17 Blood Pressure 104/52 L 101/51 L 112/53 L Pulse Oximetry 98 99 98 02/18/18 14:45 02/18/18 15:00 02/18/18 15:15 Temperature Pulse Rate 88 86 86 Respiratory Rate 18 19 20 Blood Pressure 124/59 L 110/56 L 133/60 Pulse Oximetry 97 98 99 02/18/18 15:18 02/18/18 15:55 02/18/18 16:00 Temperature 97.8 F Pulse Rate 85 86 Respiratory Rate 20 21 Blood Pressure 101/51 L Pulse Oximetry 97 98 02/18/18 16:01 02/18/18 16:15 02/18/18 16:31 Temperature Pulse Rate 86 86 86 Respiratory Rate 20 20 16 Blood Pressure 101/51 L 114/56 L 121/57 L Pulse Oximetry 98 97 93 L 02/18/18 16:32 02/18/18 16:45 02/18/18 17:00 Temperature Pulse Rate 87 90 92 H Respiratory Rate 22 26 H 21 Blood Pressure 133/63 129/61 146/59 H Pulse Oximetry 98 89 L 94 L 02/18/18 17:15 02/18/18 17:30 02/18/18 17:45 Temperature Pulse Rate 92 H 90 91 H Respiratory Rate 21 16 13 Blood Pressure 141/65 H 137/63 111/52 L Pulse Oximetry 94 L 93 L 94 L 02/18/18 18:00 02/18/18 19:00 02/18/18 20:00 Temperature 100.0 F H Pulse Rate 89 97 H 105 H Respiratory Rate 14 11 L 23 Blood Pressure 151/68 H 106/49 L 159/69 H Pulse Oximetry 94 L 95 91 L 02/18/18 20:23 02/18/18 20:29 02/18/18 21:00 Temperature Pulse Rate 106 H 107 H Respiratory Rate 22 17 Blood Pressure 141/63 H Pulse Oximetry 94 L 92 L 02/18/18 22:00 02/18/18 23:00 02/19/18 00:00 Temperature 99.9 F H Pulse Rate 104 H 100 H 97 H Respiratory Rate 17 12 21 Blood Pressure 117/60 156/67 H 106/53 L Pulse Oximetry 94 L 94 L 98 02/19/18 00:07 02/19/18 00:34 02/19/18 01:00 Temperature Pulse Rate 99 H 96 H Respiratory Rate 17 21 Blood Pressure 136/62 Pulse Oximetry 98 99 02/19/18 02:00 02/19/18 03:00 02/19/18 03:57 Temperature Pulse Rate 99 H 96 H 97 H Respiratory Rate 26 H 17 24 Blood Pressure 119/59 L 128/57 L Pulse Oximetry 100 98 96 02/19/18 04:00 02/19/18 05:00 02/19/18 06:00 Temperature 99.8 F H Pulse Rate 97 H 100 H 100 H Respiratory Rate 25 H 28 H 30 H Blood Pressure 136/63 133/63 132/62 Pulse Oximetry 98 100 100 02/19/18 07:00 02/19/18 07:17 02/19/18 08:00 Temperature 99.0 F Pulse Rate 99 H 97 H 101 H Respiratory Rate 30 H 26 H 20 Blood Pressure 163/70 H Pulse Oximetry 99 100 100 02/19/18 09:00 02/19/18 10:00 02/19/18 11:00 Temperature Pulse Rate 104 H 100 H 99 H Respiratory Rate 18 18 18 Blood Pressure 162/67 H 143/68 H 141/65 H Pulse Oximetry 96 99 99 02/19/18 11:06 02/19/18 12:00 02/19/18 13:00 Temperature Pulse Rate 100 H 104 H 105 H Respiratory Rate 24 17 18 Blood Pressure 147/67 H 136/64 Pulse Oximetry 98 95 Intake & Output 02/18/18 02/19/18 02/19/18 18:59 06:59 18:59 Intake Total 100 / 100 0 / 0 Output Total 1300 / 1300 550 / 550 Balance -1200 / -1200 -550 / -550 Weight 80 kg Intake: Oral 100 / 100 0 / 0 Output: Urine Amount (Catheter) 1300 / 1300 550 / 550 Indwelling Urethral Catheter 1300 / 1300 550 / 550 Other: Date of Last Bowel Movement 02/15/18 02/15/18 02/15/18 # Bowel Movements 0 0 Narrative: GEN: Elderly female, alert and awake HEENT: EOMI NECK: No JVD. RESP: no wheeze, rales. Rhonchi L base. Equal bilaterally CV: regular, rate and rhythm, 1/6 crescendo decrescendo to the RSB GI: abdomen distended, no tympany, bowel sounds present VASC: dressings in place groin bilaterally no hematoma NEURO: No focal deficits - Urinary Catheter Management Indwelling Urethral Catheter Cath placed during this visit: yes Reason for continuing: Acute urinary retention Insertion date: 02/18/18 Insertion time: 05:26 Results 02/19/18 05:50 02/19/18 05:50 Cardiac Enzymes 02/17/18 02/17/18 02/18/18 Range/Units 18:35 18:35 03:38 AST 25 (15-37) U/L CK-MB (CK-2) 2.0 2.1 (0.5-3.6) ng/mL Troponin I 0.67 H* 0.53 H D (0.02-0.05) ng/mL B-Natriuretic Peptide 69 (0-100) pg/mL 02/18/18 02/19/18 Range/Units 10:07 05:50 AST 25 (15-37) U/L CK-MB (CK-2) (0.5-3.6) ng/mL Troponin I 0.36 H D (0.02-0.05) ng/mL B-Natriuretic Peptide (0-100) pg/mL Coagulation 02/17/18 02/17/18 Range/Units 18:35 19:55 PT 10.7 (9.8-11.6) sec APTT 25.2 (24.3-30.1) sec B-Natriuretic Peptide 69 (0-100) pg/mL CBC 02/17/18 02/18/18 02/19/18 Range/Units 18:35 03:38 05:50 WBC 7.6 9.4 5.5 (4.0-11.0) th/mm3 RBC 3.48 L 3.69 L 3.16 L (4.00-5.30) mil/mm3 Hgb 11.3 L 11.6 10.2 L (11.6-15.3) gm/dL Hct 33.4 L 35.7 29.9 L (35.0-46.0) % Plt Count 136 L 117 L 126 L (150-450) th/mm3 Neut # (Auto) 4.5 5.6 3.3 (1.8-7.7) th/mm3 Lymph # (Auto) 1.6 1.7 1.3 (1.0-4.8) th/mm3 Travis # (Auto) 1.4 H 1.9 H 0.7 (0.0-0.9) th/mm3 Eos # (Auto) 0.1 0.1 0.1 (0.0-0.4) th/mm3 Baso # (Auto) 0.1 0.1 0.1 (0.0-0.2) th/mm3 Comprehensive Metabolic Panel 02/17/18 02/18/18 02/18/18 Range/Units 18:35 03:38 19:12 Sodium 133 L 135 L 135 L (136-145) meq/L Potassium 4.0 4.1 3.9 (3.5-5.1) meq/L Chloride 98 96 L 97 L (98-107) meq/L Carbon Dioxide 27.6 30.9 30.0 (21.0-32.0) meq/L BUN 18 18 17 (7-18) mg/dL Creatinine 1.09 H 1.04 H 0.91 (0.50-1.00) mg/dL Calcium 8.1 L 8.3 L 8.3 L (8.5-10.1) mg/dL AST 25 (15-37) U/L ALT 19 (10-53) U/L Alkaline Phosphatase 59 (45-117) U/L Total Protein 6.8 (6.4-8.2) g/dL Albumin 3.1 L (3.4-5.0) g/dL 02/19/18 Range/Units 05:50 Sodium 137 (136-145) meq/L Potassium 3.7 (3.5-5.1) meq/L Chloride 98 (98-107) meq/L Carbon Dioxide 30.0 (21.0-32.0) meq/L BUN 16 (7-18) mg/dL Creatinine 0.80 (0.50-1.00) mg/dL Calcium 8.1 L (8.5-10.1) mg/dL AST 25 (15-37) U/L ALT 24 (10-53) U/L Alkaline Phosphatase 62 (45-117) U/L Total Protein 6.4 (6.4-8.2) g/dL Albumin 2.6 L (3.4-5.0) g/dL Intake and Output 02/18/18 02/19/18 02/19/18 22:59 06:59 14:59 Intake Total 100 / 100 0 / 0 Output Total 1300 / 1300 550 / 550 Balance -1200 / -1200 -550 / -550 Intake: Oral 100 / 100 0 / 0 Output: Urine Amount (Catheter) 1300 / 1300 550 / 550 Indwelling Urethral Catheter 1300 / 1300 550 / 550 Other: Date of Last Bowel Movement 02/15/18 02/15/18 02/15/18 # Bowel Movements 0 0 Weight 80 kg - Imaging and Cardiology Imaging: Impressions Chest X-Ray 02/17/18 18:30 CONCLUSION: Minimal basilar atelectasis. No consolidation or significant effusion. Abdomen X-Ray 02/18/18 00:00 CONCLUSION: Mild ileus suspected. No perceptible obstruction. No free air. Abdomen/Bladder Ultrasound 02/18/18 00:00 CONCLUSION: 1. Minimal perinephric fluid on the left which is nonspecific. 2. Multiple bilateral renal cysts. 3. No hydronephrosis or solid renal mass. 4. Limited evaluation of the urinary bladder which is nondistended and contains a Soto catheter. 5. Echogenic liver suggesting fatty infiltration or diffuse hepatocellular disease. Chest X-Ray 02/18/18 03:37 CONCLUSION: Mild bibasilar atelectasis. Head CT 02/18/18 15:39 CONCLUSION: 1. No acute intracranial findings. 2. Small air-fluid level in left sphenoid sinus, suggesting sinusitis. . Chest X-Ray 02/19/18 06:00 CONCLUSION: No significant change. Assessment and Plan - Assessment (1) Acute respiratory failure Code(s): J96.00 - Acute respiratory failure, unspecified whether with hypoxia or hypercapnia Status: Acute (2) Aortic stenosis Code(s): I35.0 - Nonrheumatic aortic (valve) stenosis Status: Acute (3) CAD (coronary artery disease) Code(s): I25.10 - Atherosclerotic heart disease of chilkoot coronary artery without angina pectoris Status: Acute (4) Diastolic CHF Code(s): I50.30 - Unspecified diastolic (congestive) heart failure Status: Acute (5) S/p TAVR (transcatheter aortic valve replacement), bioprosthetic Code(s): Z95.3 - Presence of xenogenic heart valve Status: Acute (6) Acute on chronic diastolic (congestive) heart failure Code(s): I50.33 - Acute on chronic diastolic (congestive) heart failure Status : Acute (7) Elevated troponin Code(s): R74.8 - Abnormal levels of other serum enzymes Status: Acute (8) Hypoxemia Code(s): R09.02 - Hypoxemia Status: Acute - Plan 1) Acute respiratory failure Most likely CO2 retention 2) Encephalopathy due to CO2 retention 3) Echo showing normal functioning TAVR valve 4) Con't on ASA/Plavix for TAVR and previous PCI (2) Aortic stenosis Qualifiers: (3) CAD (coronary artery disease) Qualifiers: Coronary Disease-Associated Artery/Lesion type: chilkoot artery Stebbins vs. transplanted heart: chilkoot heart Associated angina: without angina Qualified Code(s): I25.10 - Atherosclerotic heart disease of chilkoot coronary artery without angina pectoris
[2018-02-19] MEDS ORDERED: Labetalol HCl Inj 100 MG/20 ML Vial IV.PUSH PRN (17:44)
[2018-02-20] MEDS: hydrALAZINE HCl Inj 20 MG/ML Vial IV.PUSH PRN ×2 (00:12→02:43)
--- NOTE | 2018-02-20 03:48 | XR ---
EXAM DATE: 02/20/2018 3:44 AM EDT AGE/SEX: 82 years / Female INDICATIONS: Shortness of breath, possible pulmonary disease. CLINICAL DATA: This is the patient's subsequent encounter. Patient reports that signs and symptoms h ave been present for 3 days and indicates a pain score of Nonresponsive. MEDICAL/SURGICAL HISTORY: Diabetes mellitus type II. Hyperthyroidism. Hypertension. CHF. CKD . Breast ca. Cholecystectomy. Tonsillectomy. Coronary artery stent. Mastectomy. TAVR. COMPARISON: [facility] [place], CHEST 1V SINGLE AP, 02/19/2018. . FINDINGS: Mild patchy parenchymal opacities are again seen of the right lung, unchanged. No effusions seen. No pneumothorax. Heart size stable, within normal limits. Atherosclerotic aorta again seen. CONCLUSION: No significant change. Electronically signed by: Rayshawn Lang MD 02/20/2018 3:47 AM EDT
[2018-02-20] MEDS: Chlorhexidine Gluconate 2% 1 Pack (2 Cloths) TOPICAL SCH (04:37)
[2018-02-20 04:51] LABS: Baso % (Auto) 0.8 % (0.0-2.0); Eos # (Auto) 0.1 th/mm3 (0.0-0.4); Hemoglobin 10.8 gm/dL (11.6-15.3); Lymph # (Auto) 1.1 th/mm3 (1.0-4.8); Lymph % (Auto) 17.9 % (9.0-44.0); Mean Corpuscular HGB Conc 33.8 % (32.0-36.0); Mean Corpuscular Hemoglobin 32.1 pg (27.0-34.0); Mean Platelet Volume 8.6 fL (7.0-11.0); Mono # (Auto) 0.6 th/mm3 (0.0-0.9); Mono % (Auto) 10.6 % (0.0-8.0); Neut # (Auto) 4.1 th/mm3 (1.8-7.7); Neut % (Auto) 68.7 % (16.0-70.0); Platelet Count 145 th/mm3 (150-450); Red Blood Count 3.37 mil/mm3 (4.00-5.30); Red Cell Distribution Width 15.8 % (11.6-17.2); White Blood Count 5.9 th/mm3 (4.0-11.0)
[2018-02-20] MEDS: Insulin NovoLOG Aspart Correctional Sugar Inj SQ SCH ×5 (04:52→23:07)
[2018-02-20 05:11] LABS: Calcium 8.6 mg/dL (8.5-10.1); Magnesium 1.9 mg/dL (1.5-2.5); Phosphorus 2.2 mg/dL (2.5-4.9); Potassium 3.8 meq/L (3.5-5.1)
[2018-02-20] MEDS: Levothyroxine 125 MCG Tablet PO SCH (05:16)
[2018-02-20] MEDS: Loratadine 10 MG Tablet PO SCH (09:12)
[2018-02-20] MEDS: Ferrous Sulfate 325 MG Tablet PO SCH (09:12)
[2018-02-20] MEDS: Lisinopril 10 MG Tablet PO SCH (09:12)
[2018-02-20] MEDS: hydroCHLOROthiazide 25 MG Tablet PO SCH (09:12)
[2018-02-20] MEDS: Pantoprazole Inj 40 MG Vial IV.PUSH SCH (09:13)
[2018-02-20] MEDS: Heparin - SQ 10,000 UNITS/ML Vial SQ SCH ×2 (09:13→20:11)
--- NOTE | 2018-02-20 10:23 | P.PN ---
Subjective Interval history: 82-year-old female with a past medical history type 2 diabetes mellitus, hypertension, hypothyroidism, hyperlipidemia, KOMAL with poor CPAP adherence, CKD stage II, hx breast cancer s/p bilat mastectomy, CHF related to severe , CAD with DORIAN to RCA with recent TAVR 02/16. She was discharged 02/17 after arrangements were made for home health due to deconditioning. She [place] [facility] [place] [facility] with generalized weakness and shortness of breath. She was placed on Bipap due to increased work of breathing and hypercapneic and hypoxemic respiratory failure. CXR showed bibasilar atelectasis. She was admitted to [facility] under the hospitalist service. She was off Bipap on Venti mask about 6 hours and she was taking the Ventimask off and had a desaturation. Roney was called and I was asked to evaluate her. Repeat ABG with mildly worsening hypercapneic. She was tachypneic on Bipap, [place] [facility] [place] She denies CP, states "she has to use the bathroom". Abdomen distended, placed Soto , >1.5 L of output upon insertion. Respiratory status improving. CXR stable. TAVR team updated.CKD 02/18 -currently resting in bed on BiPAP 15/5 at 40%. Appears comfortable. Aggressive pulmonary toilet initiated. Daughter will bring in her home CPAP machine later tonight. Subjective 02/19: On BiPAP overnight with FiO2 of 35%. More awake and alert today. In and out of lucency. CT brain revealed left-sided sinusitis of the sphenoid region. Otherwise essentially unremarkable workup. Influenza still pending. Sputum still pending. UA negative for acute infection. 02/20: Patient was noted confused overnight. She was placed on BiPAP overnight. She is improved in the morning she is alert and oriented family her daughter at bedside all questions answered to the best of my ability. Patient is more awake and alert is no wheezing. No shortness of breath at this time. She is on nasal cannula. No nausea vomiting. Physical Exam Vital signs: Vital Signs 02/19/18 11:00 02/19/18 11:06 02/19/18 12:00 Pulse Rate 99 H 100 H 104 H Respiratory Rate 18 24 17 Blood Pressure 141/65 H 147/67 H Pulse Oximetry 99 98 02/19/18 13:00 02/19/18 14:00 02/19/18 15:00 Pulse Rate 105 H 107 H 106 H Respiratory Rate 18 18 17 Blood Pressure 136/64 125/62 149/57 H Pulse Oximetry 95 97 96 02/19/18 15:04 02/19/18 16:00 02/19/18 17:00 Pulse Rate 106 H 108 H 104 H Respiratory Rate 16 17 16 Blood Pressure 167/71 H 168/74 H Pulse Oximetry 97 99 02/19/18 18:00 02/19/18 19:00 02/19/18 19:46 Pulse Rate 111 H 108 H 108 H Respiratory Rate 17 36 H 20 Blood Pressure 171/71 H 161/68 H Pulse Oximetry 100 97 98 02/19/18 19:50 02/19/18 20:00 02/19/18 20:03 Pulse Rate 111 H 108 H Respiratory Rate 29 H Blood Pressure 138/61 Pulse Oximetry 98 98 97 02/19/18 21:00 02/19/18 22:00 02/19/18 22:55 Pulse Rate 104 H 101 H 105 H Respiratory Rate 34 H 30 H 20 Blood Pressure 147/63 H 151/67 H Pulse Oximetry 99 100 02/19/18 23:00 02/19/18 23:40 02/20/18 00:00 Pulse Rate 104 H 101 H Respiratory Rate 27 H 25 H Blood Pressure 184/77 H 181/74 H Pulse Oximetry 100 100 96 02/20/18 01:00 02/20/18 02:00 02/20/18 03:00 Pulse Rate 103 H 100 H 107 H Respiratory Rate 25 H 24 28 H Blood Pressure 184/77 H 174/71 H 139/63 Pulse Oximetry 96 98 98 02/20/18 03:22 02/20/18 04:00 02/20/18 04:02 Pulse Rate 109 H 111 H Respiratory Rate 23 29 H Blood Pressure 133/62 Pulse Oximetry 100 100 02/20/18 05:00 02/20/18 06:00 02/20/18 07:00 Pulse Rate 111 H 111 H 109 H Respiratory Rate 21 23 8 L Blood Pressure 125/58 L 125/93 H 133/63 Pulse Oximetry 98 98 100 02/20/18 07:31 02/20/18 08:00 02/20/18 08:30 Pulse Rate 111 H 111 H 108 H Respiratory Rate 35 H 16 30 H Blood Pressure 156/65 H 155/67 H 147/64 H Pulse Oximetry 100 96 97 02/20/18 09:00 02/20/18 09:30 02/20/18 10:00 Pulse Rate 105 H 108 H 104 H Respiratory Rate 27 H 34 H 38 H Blood Pressure 147/75 H 136/92 H 120/58 L Pulse Oximetry 97 97 100 Intake & Output 02/19/18 02/20/18 02/20/18 18:59 06:59 18:59 Intake Total 840 / 840 60 / 60 Output Total 800 / 800 800 / 800 Balance 40 / 40 -740 / -740 Weight 80 kg Intake: IV 360 / 360 Potassium Phosphate Inj 30 MMOL 260 / 260 In NS Inj 250 ML @ 43.333 mls/ hr IV.SIG ONCE ONE Rx#:[id number] Rocephin Inj 1,000 MG In NS Inj 100 / 100 100 ML @ 200 mls/hr IV.SIG Q24H VALENTINO Rx#:[id number] Oral 480 / 480 60 / 60 Output: Urine Amount (Catheter) 800 / 800 800 / 800 Indwelling Urethral Catheter 800 / 800 800 / 800 Other: Date of Last Bowel Movement 02/15/18 02/15/18 # Bowel Movements 0 0 Narrative: GENERAL: 82-year-old female currently resting in bed on BiPAP in no acute distress CARDIOVASCULAR: Tachycardic, RR. S1, S2. No S4. Pansystolic murmur 1 out of 6 noted RESPIRATORY: Few fine crackles appreciated in the bases bilaterally left greater than right. No wheezing. GASTROINTESTINAL: Abdomen obese. Not tender to palpation on my examination. Hypoactive bowel sounds appreciated MUSCULOSKELETAL: Extremities trace bilateral lower extremity edema. No obvious deformities. NEUROLOGICAL: Awake and alert. No obvious cranial nerve deficits. Motor grossly within normal limits. Five out of 5 muscle strength in the arms and legs. Speech normal. - Urinary Catheter Management Indwelling Urethral Catheter Cath placed during this visit: yes Reason for continuing: Acute urinary retention Insertion date: 02/18/18 Insertion time: 05:26 Results - Labs CBC & Chem 7: 02/20/18 03:36 02/20/18 03:36 Laboratory Results - last 24 hr 02/19/18 02/19/18 02/19/18 12:24 17:16 20:14 WBC RBC Hgb Hct MCV MCH MCHC RDW Plt Count MPV Neut % (Auto) Lymph % (Auto) Bulloch % (Auto) Eos % (Auto) Baso % (Auto) Neut # (Auto) Lymph # (Auto) Bulloch # (Auto) Eos # (Auto) Baso # (Auto) WBC Differential Differential Comment Sodium Potassium Chloride Carbon Dioxide Anion Gap BUN Creatinine Estimated GFR POC Glucose 179 H 199 H 283 H Random Glucose Calcium Phosphorus Magnesium 02/20/18 02/20/18 02/20/18 03:36 03:36 04:40 WBC 5.9 RBC 3.37 L Hgb 10.8 L Hct 32.0 L MCV 95.0 MCH 32.1 MCHC 33.8 RDW 15.8 Plt Count 145 L MPV 8.6 Neut % (Auto) 68.7 Lymph % (Auto) 17.9 Bulloch % (Auto) 10.6 H Eos % (Auto) 2.0 Baso % (Auto) 0.8 Neut # (Auto) 4.1 Lymph # (Auto) 1.1 Bulloch # (Auto) 0.6 Eos # (Auto) 0.1 Baso # (Auto) 0.0 WBC Differential . Differential Comment Auto diff final Sodium 137 Potassium 3.8 Chloride 99 Carbon Dioxide 28.0 Anion Gap 10 BUN 16 Creatinine 0.86 Estimated GFR 63 L POC Glucose 225 H Random Glucose 183 H Calcium 8.6 Phosphorus 2.2 L Magnesium 1.9 02/20/18 08:42 WBC RBC Hgb Hct MCV MCH MCHC RDW Plt Count MPV Neut % (Auto) Lymph % (Auto) Bulloch % (Auto) Eos % (Auto) Baso % (Auto) Neut # (Auto) Lymph # (Auto) Bulloch # (Auto) Eos # (Auto) Baso # (Auto) WBC Differential Differential Comment Sodium Potassium Chloride Carbon Dioxide Anion Gap BUN Creatinine Estimated GFR POC Glucose 248 H Random Glucose Calcium Phosphorus Magnesium Microbiology 02/19/18 16:58 Sputum - Expectorated Sputum Gram Stain - Final 02/19/18 14:00 Nasal Wash Influenza Types A,B Antigen - Final Negative for FLU A and B antigen Infection due to influenza A or B cannot be ruled out since the antigen present in the sample may be below the detection limit of the test. 02/18/18 19:17 Blood - Peripheral Aerobic Blood Culture - Preliminary No growth in 1 day 02/18/18 19:17 Blood - Peripheral Anaerobic Blood Culture - Preliminary No growth in 1 day 02/18/18 19:12 Blood - Peripheral Aerobic Blood Culture - Preliminary No growth in 1 day 02/18/18 19:12 Blood - Peripheral Anaerobic Blood Culture - Preliminary No growth in 1 day - Imaging Impressions Chest X-Ray 02/20/18 06:00 CONCLUSION: No significant change. Assessment and Plan - Plan NEURO/Psych: Acute encephalopathy likely secondary to CO2 retention Peripheral neuropathy Depression/anxiety History of bilateral cataract removal Currently on gabapentin 100 mg 3 times daily/we will hold with altered mental status Acetaminophen 650 p.o. every 6 hours as needed fever CT brain revealed left sphenoid sinusitis otherwise unremarkable. Avoid sedatives RESP: KOMAL-compliance issues with CPAP at night? 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 CV: CAD with DORIAN RCA HLD Hypertension hx severe now s/p TAVR Chronic diastolic heart failure Echocardiogram revealed EF 55-60%. Trace MR/TR. PAP 29. TAVR no leak Trending troponin, downtrend from 0.6. Dr. Rico updated. Dr. Aguilar seen currently Currently on clopidogrel 75 mg daily and aspirin 81 mg daily. Continue Continue atorvastatin 20 mg daily for dyslipidemia Continue metoprolol succinate 12.5 mg daily and lisinopril 10 mg daily for hypertension GI: Ileus History of colonic diverticulosis Pantoprazole for GI prophylaxis Docusate sodium/senna 1 tablet twice daily for bowel regimen n.p.o. except for medications until cleared by speech therapy Fatty liver on ultrasound. Ammonia level less than 10 FEN/RENAL/: CKD Stage II Acute urinary retention Bilateral renal cyst Soto inserted, eventual voiding trials. U/a negative. Trend BMP. Renal ultrasound - Minimal perinephric fluid on the left which is nonspecific. Multiple bilateral renal cysts. No hydronephrosis or solid renal mass. Limited evaluation of the urinary bladder which is nondistended and contains a Soto catheter. Echogenic liver suggesting fatty infiltration or diffuse hepatocellular disease. ENDO: DM Hypothyroidism Low dose aspart insulin sliding scale ac/hs Holding home medications of glipizide 10 mg daily metformin 1000 mg twice daily Continue levothyroxine 125 mcg daily. Noted TSH is 0.341. Normally on 137 mcg daily ID: Left sphenoid sinusitis Monitor for signs and symptomatology infection. We will start on ceftriaxone 1 g IV every 24 hours. Blood cultures 2, UA, sputum and influenza a and B ordered. 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 Monitor CBC daily. Follow trends. MSK: Elevated BMI Osteopenia PT evaluate and treat Weight loss encouraged PROPH: Heparin 5000 subcut q12. Pantoprazole for stress ulcer prophylaxis. Discussed with the patient, his daughter at bedside, ICU nurse
--- NOTE | 2018-02-20 16:04 | P.PNCA ---
Subjective Interval history: Confusion overnight This morning awake and alert, on nasal cannula, no complaints Medications and Allergies Active Medications: Active Medications Acetaminophen (Tylenol) 650 mg PO Q6H PRN PRN Reason: Temp > 100.4 Last Admin: 02/18/18 09:39 Dose: 650 mg Albuterol (Duoneb Neb (Patrick)) 1 ampul NEB Q4HR NEB [facility] Last Admin: 02/20/18 14:56 Dose: 1 ampul Albuterol (Albuterol Neb (Prn)) 2.5 mg NEB Q2HR NEB PRN PRN Reason: DYSPNEA Aspirin (Ecotrin) 81 mg PO DAILY [facility] Last Admin: 02/20/18 09:12 Dose: 81 mg Atorvastatin Calcium (Lipitor) 20 mg PO DAILY [facility] Last Admin: 02/20/18 09:12 Dose: 20 mg Bisacodyl (Dulcolax Supp) 10 mg RECTAL DAILY PRN PRN Reason: SEVERE CONSITIPATION Chlorhexidine Gluconate (Chlorhexidine 2% Cloth) 3 pack TOPICAL DAILY@0400 [facility] Stop: 02/24/18 03:59 Last Admin: 02/20/18 04:37 Dose: 3 pack Chlorhexidine Gluconate (Chlorhexidine 2% Cloth) 3 pack TOPICAL DAILY@0400 PRN PRN Reason: Extra cloth needed Stop: 02/24/18 03:59 Clonidine HCl (Catapres) 0.1 mg PO Q6H PRN PRN Reason: Sbp>165, Dbp>90, Hr>65 Last Admin: 02/19/18 18:30 Dose: 0.1 mg Clopidogrel Bisulfate (Plavix) 75 mg PO DAILY [facility] Last Admin: 02/20/18 09:12 Dose: 75 mg Dextrose (D50w Vial) 50 ml IV.PUSH UNSCH PRN PRN Reason: PER HYPOGLYCEMIA PROTOCOL Enalaprilat (Vasotec Inj) 1.25 mg IV.PUSH Q6H PRN PRN Reason: Sbp>165, Dbp>90 Ferrous Sulfate (Ferosul) 325 mg PO DAILY [facility] Last Admin: 02/20/18 09:12 Dose: 325 mg Fluticasone/Vilanterol (Breo Ellipta 100/25 Mcg Inh) 1 puff INH DAILY [facility] Last Admin: 02/20/18 09:12 Dose: 1 puff Gabapentin (Neurontin) 100 mg PO TID [facility] Last Admin: 02/19/18 08:53 Dose: 100 mg Glucagon (Glucagon Inj) 1 mg OTHER PRN PRN PRN Reason: for Hypoglycemia Protocol Heparin Sodium (Porcine) (Heparin Inj) 5,000 units SQ Q12HR [facility] Last Admin: 02/20/18 09:13 Dose: 5,000 units Hydralazine HCl (Apresoline Inj) 10 mg IV.PUSH Q1H PRN PRN Reason: Sbp>165, Dbp>90 Last Admin: 02/20/18 02:43 Dose: 10 mg Hydrochlorothiazide (Hydrodiuril) 12.5 mg PO DAILY [facility] Last Admin: 02/20/18 09:12 Dose: 12.5 mg Ceftriaxone Sodium 1,000 mg/ (Sodium Chloride) 100 mls @ 200 mls/hr IV.SIG Q24H [facility] Last Admin: 02/20/18 09:10 Dose: 200 mls/hr Insulin Aspart (Novolog Insulin Correctional Sugar Inj) 0 unit SQ ACHS AND 3AM PATRICK; Protocol Last Admin: 02/20/18 12:45 Dose: 1 unit Labetalol HCl (Trandate Inj) 10 mg IV.PUSH Q1H PRN PRN Reason: Sbp>165, Dbp>90, Hr>65 Levothyroxine Sodium (Synthroid) 125 mcg PO DAILY@0600 [facility] Last Admin: 02/20/18 05:16 Dose: 125 mcg Lisinopril (Prinivil) 10 mg PO DAILY [facility] Last Admin: 02/20/18 09:12 Dose: 10 mg Loratadine (Claritin) 10 mg PO DAILY [facility] Last Admin: 02/20/18 09:12 Dose: 10 mg Metoprolol Succinate (Toprol Xl) 12.5 mg PO DAILY [facility] Last Admin: 02/20/18 09:12 Dose: 12.5 mg Ondansetron HCl (Zofran Inj) 4 mg IV.PUSH Q6H PRN PRN Reason: NAUSEA OR VOMITING Last Admin: 02/20/18 04:37 Dose: 4 mg Pantoprazole Sodium (Protonix Inj) 40 mg IV.PUSH Q24H [facility] Last Admin: 02/20/18 09:13 Dose: 40 mg Pt Own Med: Letrozole 2.5 Mg Tablet 0 each PO DAILY [facility] Sennosides (Senokot) 17.2 mg PO Q12H PRN PRN Reason: Moderate Constipation Sodium Chloride (Ns Flush) 2 ml IV.FLUSH UNSCH PRN PRN Reason: FLUSH AFTER USING IV ACCESS Allergies Allergy/AdvReac Type Severity Reaction Status Date / Time No Known Allergies Allergy Verified 02/16/18 05:43 Home Medications Medication Instructions Recorded Confirmed Type atorvastatin 20 mg PO DAILY 01/19/18 02/17/18 History gabapentin 100 mg PO TID 01/19/18 02/17/18 History glipizide 10 mg PO DAILY 01/19/18 02/17/18 History letrozole 2.5 mg PO DAILY 01/19/18 02/17/18 History levothyroxine 137 mcg PO DAILY 01/19/18 02/17/18 History lisinopril-hydrochlorothiazide 1 tab PO DAILY 01/19/18 02/17/18 History loratadine [Claritin] 10 mg PO DAILY 01/19/18 02/17/18 History metformin 1,000 mg PO BID 01/19/18 02/17/18 History potassium chloride [Klor-Con 10] 10 meq PO DAILY 01/19/18 02/17/18 History Physical Exam Vital signs: Vital Signs 02/19/18 17:00 02/19/18 18:00 02/19/18 19:00 Pulse Rate 104 H 111 H 108 H Respiratory Rate 16 17 36 H Blood Pressure 168/74 H 171/71 H 161/68 H Pulse Oximetry 99 100 97 02/19/18 19:46 02/19/18 19:50 02/19/18 20:00 Pulse Rate 108 H 111 H Respiratory Rate 20 Blood Pressure Pulse Oximetry 98 98 98 02/19/18 20:03 02/19/18 21:00 02/19/18 22:00 Pulse Rate 108 H 104 H 101 H Respiratory Rate 29 H 34 H 30 H Blood Pressure 138/61 147/63 H 151/67 H Pulse Oximetry 97 99 100 02/19/18 22:55 02/19/18 23:00 02/19/18 23:40 Pulse Rate 105 H 104 H Respiratory Rate 20 27 H Blood Pressure 184/77 H Pulse Oximetry 100 100 02/20/18 00:00 02/20/18 01:00 02/20/18 02:00 Pulse Rate 101 H 103 H 100 H Respiratory Rate 25 H 25 H 24 Blood Pressure 181/74 H 184/77 H 174/71 H Pulse Oximetry 96 96 98 02/20/18 03:00 02/20/18 03:22 02/20/18 04:00 Pulse Rate 107 H 109 H 111 H Respiratory Rate 28 H 23 29 H Blood Pressure 139/63 133/62 Pulse Oximetry 98 100 02/20/18 04:02 02/20/18 05:00 02/20/18 06:00 Pulse Rate 111 H 111 H Respiratory Rate 21 23 Blood Pressure 125/58 L 125/93 H Pulse Oximetry 100 98 98 02/20/18 07:00 02/20/18 07:31 02/20/18 08:00 Pulse Rate 109 H 111 H 111 H Respiratory Rate 8 L 35 H 16 Blood Pressure 133/63 156/65 H 155/67 H Pulse Oximetry 100 100 98 02/20/18 08:30 02/20/18 09:00 02/20/18 09:30 Pulse Rate 108 H 105 H 108 H Respiratory Rate 30 H 27 H 34 H Blood Pressure 147/64 H 147/75 H 136/92 H Pulse Oximetry 97 97 97 02/20/18 10:00 02/20/18 10:30 02/20/18 11:00 Pulse Rate 104 H 103 H 101 H Respiratory Rate 38 H 30 H 21 Blood Pressure 120/58 L 124/90 126/60 Pulse Oximetry 100 99 98 02/20/18 11:30 02/20/18 11:44 02/20/18 12:00 Pulse Rate 107 H 102 H 103 H Respiratory Rate 33 H 16 31 H Blood Pressure 138/96 H 124/57 L Pulse Oximetry 98 95 02/20/18 12:30 02/20/18 14:00 02/20/18 14:58 Pulse Rate 101 H 100 H 102 H Respiratory Rate 22 20 Blood Pressure 137/53 L Pulse Oximetry 99 Intake & Output 02/19/18 02/20/18 02/20/18 18:59 06:59 18:59 Intake Total 840 / 840 60 / 60 Output Total 800 / 800 800 / 800 Balance 40 / 40 -740 / -740 Weight 80 kg Intake: IV 360 / 360 Potassium Phosphate Inj 30 MMOL 260 / 260 In NS Inj 250 ML @ 43.333 mls/ hr IV.SIG ONCE ONE Rx#:[id number] Rocephin Inj 1,000 MG In NS Inj 100 / 100 100 ML @ 200 mls/hr IV.SIG Q24H [facility] Rx#:[id number] Oral 480 / 480 60 / 60 Output: Urine Amount (Catheter) 800 / 800 800 / 800 Indwelling Urethral Catheter 800 / 800 800 / 800 Other: Date of Last Bowel Movement 02/15/18 02/15/18 02/15/18 # Bowel Movements 0 0 Narrative: GENERAL: 82-year-old female currently resting in bed on BiPAP in no acute distress CARDIOVASCULAR: Tachycardic, RR. S1, S2. No S4. Pansystolic murmur 1 out of 6 noted RESPIRATORY: Few fine crackles appreciated in the bases bilaterally left greater than right. No wheezing. GASTROINTESTINAL: Abdomen obese. Not tender to palpation on my examination. Hypoactive bowel sounds appreciated MUSCULOSKELETAL: Extremities trace bilateral lower extremity edema. No obvious deformities. NEUROLOGICAL: Awake and alert. No obvious cranial nerve deficits. Motor grossly within normal limits. Five out of 5 muscle strength in the arms and legs. Speech normal. - Urinary Catheter Management Indwelling Urethral Catheter Cath placed during this visit: yes Reason for continuing: Acute urinary retention Insertion date: 02/18/18 Insertion time: 05:26 Results 02/20/18 03:36 02/20/18 03:36 Cardiac Enzymes 02/19/18 Range/Units 05:50 AST 25 (15-37) U/L CBC 02/19/18 02/20/18 Range/Units 05:50 03:36 WBC 5.5 5.9 (4.0-11.0) th/mm3 RBC 3.16 L 3.37 L (4.00-5.30) mil/mm3 Hgb 10.2 L 10.8 L (11.6-15.3) gm/dL Hct 29.9 L 32.0 L (35.0-46.0) % Plt Count 126 L 145 L (150-450) th/mm3 Neut # (Auto) 3.3 4.1 (1.8-7.7) th/mm3 Lymph # (Auto) 1.3 1.1 (1.0-4.8) th/mm3 [place] # (Auto) 0.7 0.6 (0.0-0.9) th/mm3 Eos # (Auto) 0.1 0.1 (0.0-0.4) th/mm3 Baso # (Auto) 0.1 0.0 (0.0-0.2) th/mm3 Comprehensive Metabolic Panel 02/18/18 02/19/18 02/20/18 Range/Units 19:12 05:50 03:36 Sodium 135 L 137 137 (136-145) meq/L Potassium 3.9 3.7 3.8 (3.5-5.1) meq/L Chloride 97 L 98 99 (98-107) meq/L Carbon Dioxide 30.0 30.0 28.0 (21.0-32.0) meq/L BUN 17 16 16 (7-18) mg/dL Creatinine 0.91 0.80 0.86 (0.50-1.00) mg/dL Calcium 8.3 L 8.1 L 8.6 (8.5-10.1) mg/dL AST 25 (15-37) U/L ALT 24 (10-53) U/L Alkaline Phosphatase 62 (45-117) U/L Total Protein 6.4 (6.4-8.2) g/dL Albumin 2.6 L (3.4-5.0) g/dL Intake and Output 02/20/18 02/20/18 02/20/18 06:59 14:59 22:59 Intake Total 60 / 60 Output Total 800 / 800 Balance -740 / -740 Intake: Oral 60 / 60 Output: Urine Amount (Catheter) 800 / 800 Indwelling Urethral Catheter 800 / 800 Other: Date of Last Bowel Movement 02/15/18 02/15/18 # Bowel Movements 0 Weight 80 kg - Imaging and Cardiology Imaging: Impressions Head CT 02/18/18 15:39 CONCLUSION: 1. No acute intracranial findings. 2. Small air-fluid level in left sphenoid sinus, suggesting sinusitis. . Chest X-Ray 02/19/18 06:00 CONCLUSION: No significant change. Chest X-Ray 02/20/18 06:00 CONCLUSION: No significant change. Assessment and Plan - Assessment (1) Acute respiratory failure Code(s): J96.00 - Acute respiratory failure, unspecified whether with hypoxia or hypercapnia Status: Acute (2) Aortic stenosis Code(s): I35.0 - Nonrheumatic aortic (valve) stenosis Status: Acute (3) CAD (coronary artery disease) Code(s): I25.10 - Atherosclerotic heart disease of [place] coronary artery without angina pectoris Status: Acute (4) Diastolic CHF Code(s): I50.30 - Unspecified diastolic (congestive) heart failure Status: Acute (5) S/p TAVR (transcatheter aortic valve replacement), bioprosthetic Code(s): Z95.3 - Presence of xenogenic heart valve Status: Acute (6) Acute on chronic diastolic (congestive) heart failure Code(s): I50.33 - Acute on chronic diastolic (congestive) heart failure Status : Acute (7) Elevated troponin Code(s): R74.8 - Abnormal levels of other serum enzymes Status: Acute (8) Hypoxemia Code(s): R09.02 - Hypoxemia Status: Acute - Plan 1) Acute respiratory failure Most likely CO2 retention Mildly diuresing, which may be a small component of SOB 2) Encephalopathy due to CO2 retention Resolved 3) Echo showing normal functioning TAVR valve 4) Con't on ASA/Plavix for TAVR and previous PCI (2) Aortic stenosis Qualifiers: (3) CAD (coronary artery disease) Qualifiers: Coronary Disease-Associated Artery/Lesion type: [place] artery [place] vs. transplanted heart: [place] heart Associated angina: without angina Qualified Code(s): I25.10 - Atherosclerotic heart disease of [place] coronary artery without angina pectoris
[2018-02-21] MEDS: Chlorhexidine Gluconate 2% 1 Pack (2 Cloths) TOPICAL SCH (05:16)
[2018-02-21] MEDS: Levothyroxine 125 MCG Tablet PO SCH (05:16)
[2018-02-21] MEDS: Insulin NovoLOG Aspart Correctional Sugar Inj SQ SCH ×5 (05:22→21:15)
[2018-02-21 07:14] LABS: Baso # (Auto) 0.1 th/mm3 (0.0-0.2); Baso % (Auto) 0.9 % (0.0-2.0); Eos # (Auto) 0.2 th/mm3 (0.0-0.4); Eos % (Auto) 3.6 % (0.0-4.0); Hematocrit 31.3 % (35.0-46.0); Hemoglobin 10.5 gm/dL (11.6-15.3); Lymph # (Auto) 1.3 th/mm3 (1.0-4.8); Lymph % (Auto) 20.4 % (9.0-44.0); Mean Corpuscular HGB Conc 33.6 % (32.0-36.0); Mean Corpuscular Volume 95.1 fL (80.0-100.0); Mean Platelet Volume 8.8 fL (7.0-11.0); Mono # (Auto) 0.7 th/mm3 (0.0-0.9); Mono % (Auto) 10.8 % (0.0-8.0); Neut % (Auto) 64.3 % (16.0-70.0); Platelet Count 169 th/mm3 (150-450); Red Blood Count 3.29 mil/mm3 (4.00-5.30); Red Cell Distribution Width 15.9 % (11.6-17.2); White Blood Count 6.2 th/mm3 (4.0-11.0)
[2018-02-21 07:41] LABS: Calcium 8.2 mg/dL (8.5-10.1); Carbon Dioxide 27.5 meq/L (21.0-32.0); Potassium 3.9 meq/L (3.5-5.1)
--- NOTE | 2018-02-21 07:52 | P.PN ---
Subjective Interval history: He is noted confused during the night on and off.. He will she was on BiPAP overnight. She is saturating well on nasal cannula at this time. Eating breakfast. Family at bedside daughter very supportive. Patient denies any chest pain or shortness of breath. No cough. No wheezing. She is awake alert her baseline. Physical Exam Vital signs: Vital Signs 02/20/18 08:00 02/20/18 08:30 02/20/18 09:00 Temperature Pulse Rate 111 H 108 H 105 H Respiratory Rate 16 30 H 27 H Blood Pressure 155/67 H 147/64 H 147/75 H Pulse Oximetry 98 97 97 02/20/18 09:30 02/20/18 10:00 02/20/18 10:30 Temperature Pulse Rate 108 H 104 H 103 H Respiratory Rate 34 H 38 H 30 H Blood Pressure 136/92 H 120/58 L 124/90 Pulse Oximetry 97 100 99 02/20/18 11:00 02/20/18 11:30 02/20/18 11:44 Temperature Pulse Rate 101 H 107 H 102 H Respiratory Rate 21 33 H 16 Blood Pressure 126/60 138/96 H Pulse Oximetry 98 98 02/20/18 12:00 02/20/18 12:30 02/20/18 13:00 Temperature Pulse Rate 103 H 101 H 104 H Respiratory Rate 31 H 22 29 H Blood Pressure 124/57 L 137/53 L Pulse Oximetry 95 99 96 02/20/18 13:01 02/20/18 13:30 02/20/18 14:00 Temperature Pulse Rate 104 H 97 H 100 H Respiratory Rate 32 H 31 H 18 Blood Pressure 125/58 L 111/53 L 101/51 L Pulse Oximetry 97 99 100 02/20/18 14:30 02/20/18 14:58 02/20/18 15:00 Temperature Pulse Rate 102 H 102 H 101 H Respiratory Rate 36 H 20 34 H Blood Pressure 119/58 L 117/68 Pulse Oximetry 94 L 100 02/20/18 15:30 02/20/18 16:00 02/20/18 16:30 Temperature Pulse Rate 100 H 100 H 99 H Respiratory Rate 26 H 38 H 37 H Blood Pressure 112/55 L 109/57 L 123/58 L Pulse Oximetry 100 98 97 02/20/18 17:00 02/20/18 17:31 02/20/18 18:00 Temperature Pulse Rate 100 H 106 H 101 H Respiratory Rate 33 H 36 H 29 H Blood Pressure 124/60 124/61 Pulse Oximetry 97 99 95 02/20/18 18:04 02/20/18 19:00 02/20/18 19:18 Temperature 97.9 F Pulse Rate 100 H 112 H 104 H Respiratory Rate 29 H 16 18 Blood Pressure 129/56 L 119/68 Pulse Oximetry 97 97 96 02/20/18 20:00 02/20/18 21:00 02/20/18 22:00 Temperature 97.9 F 97.9 F 97.9 F Pulse Rate 101 H 109 H 100 H Respiratory Rate 16 16 16 Blood Pressure 126/80 123/53 L 124/58 L Pulse Oximetry 97 97 97 02/20/18 22:43 02/20/18 23:16 02/21/18 00:00 Temperature 98 F Pulse Rate 100 H 99 H Respiratory Rate 30 H 14 Blood Pressure 134/62 Pulse Oximetry 98 99 02/21/18 01:13 02/21/18 02:00 02/21/18 03:25 Temperature Pulse Rate 98 H 93 H Respiratory Rate 12 Blood Pressure Pulse Oximetry 100 02/21/18 04:00 02/21/18 05:35 02/21/18 06:00 Temperature 97.9 F Pulse Rate 95 H 90 Respiratory Rate 16 Blood Pressure 111/53 L Pulse Oximetry 99 96 02/21/18 07:00 02/21/18 07:38 Temperature Pulse Rate 93 H Respiratory Rate 16 Blood Pressure Pulse Oximetry 95 Intake & Output 02/20/18 02/21/18 02/21/18 18:59 06:59 18:59 Intake Total 700 / 700 240 / 240 Output Total 250 / 250 350 / 350 Balance 450 / 450 -110 / -110 Weight 80.3 kg Intake: IV 100 / 100 Rocephin Inj 1,000 MG In NS Inj 100 / 100 100 ML @ 200 mls/hr IV.SIG Q24H [facility] Rx#:[id number] Oral 600 / 600 240 / 240 Output: Urine 250 / 250 Urine Amount (Catheter) 350 / 350 Indwelling Urethral Catheter 350 / 350 Other: Date of Last Bowel Movement 02/15/18 02/15/18 # Bowel Movements 0 Narrative: GENERAL: 82-year-old female currently resting in bed, in no acute distress CARDIOVASCULAR: Tachycardic, RR. S1, S2. No S4. Pansystolic murmur 1 out of 6 noted RESPIRATORY: Few fine crackles appreciated in the bases bilaterally left greater than right. No wheezing. GASTROINTESTINAL: Abdomen obese. Not tender to palpation on my examination. Hypoactive bowel sounds appreciated MUSCULOSKELETAL: Extremities trace bilateral lower extremity edema. No obvious deformities. NEUROLOGICAL: Awake and alert. No obvious cranial nerve deficits. Motor grossly within normal limits. Five out of 5 muscle strength in the arms and legs. Speech normal. - Urinary Catheter Management Indwelling Urethral Catheter Cath placed during this visit: yes Reason for continuing: Acute urinary retention Insertion date: 02/18/18 Insertion time: 05:26 Results - Labs CBC & Chem 7: 02/21/18 06:03 02/21/18 06:03 Laboratory Results - last 24 hr 02/20/18 02/20/18 02/20/18 08:42 12:29 18:10 WBC RBC Hgb Hct MCV MCH MCHC RDW Plt Count MPV Neut % (Auto) Lymph % (Auto) [place] % (Auto) Eos % (Auto) Baso % (Auto) Neut # (Auto) Lymph # (Auto) [place] # (Auto) Eos # (Auto) Baso # (Auto) WBC Differential Differential Comment Sodium Potassium Chloride Carbon Dioxide Anion Gap BUN Creatinine Estimated GFR POC Glucose 248 H 199 H 159 H Random Glucose Calcium 02/20/18 02/21/18 02/21/18 19:42 05:19 05:21 WBC RBC Hgb Hct MCV MCH MCHC RDW Plt Count MPV Neut % (Auto) Lymph % (Auto) [place] % (Auto) Eos % (Auto) Baso % (Auto) Neut # (Auto) Lymph # (Auto) [place] # (Auto) Eos # (Auto) Baso # (Auto) WBC Differential Differential Comment Sodium Potassium Chloride Carbon Dioxide Anion Gap BUN Creatinine Estimated GFR POC Glucose 218 H 246 H 176 H Random Glucose Calcium 02/21/18 02/21/18 06:03 06:03 WBC 6.2 RBC 3.29 L Hgb 10.5 L Hct 31.3 L MCV 95.1 MCH 32.0 MCHC 33.6 RDW 15.9 Plt Count 169 MPV 8.8 Neut % (Auto) 64.3 Lymph % (Auto) 20.4 [place] % (Auto) 10.8 H Eos % (Auto) 3.6 Baso % (Auto) 0.9 Neut # (Auto) 4.0 Lymph # (Auto) 1.3 [place] # (Auto) 0.7 Eos # (Auto) 0.2 Baso # (Auto) 0.1 WBC Differential . Differential Comment Auto diff final Sodium 141 Potassium 3.9 Chloride 103 Carbon Dioxide 27.5 Anion Gap 11 BUN 26 H Creatinine 1.03 H Estimated GFR 51 L POC Glucose Random Glucose 157 H Calcium 8.2 L Microbiology 02/19/18 16:58 Sputum - Expectorated Sputum Gram Stain - Final 02/19/18 16:58 Sputum - Expectorated Sputum Sputum Culture - Preliminary Immature growth - reincubate 02/18/18 19:17 Blood - Peripheral Aerobic Blood Culture - Preliminary No growth in 2 days 02/18/18 19:17 Blood - Peripheral Anaerobic Blood Culture - Preliminary No growth in 2 days 02/18/18 19:12 Blood - Peripheral Aerobic Blood Culture - Preliminary No growth in 2 days 02/18/18 19:12 Blood - Peripheral Anaerobic Blood Culture - Preliminary No growth in 2 days Assessment and Plan - Plan NEURO/Psych: Acute encephalopathy likely secondary to CO2 retention Peripheral neuropathy Depression/anxiety History of bilateral cataract removal Currently on gabapentin 100 mg 3 times daily/we will hold with altered mental status Acetaminophen 650 p.o. every 6 hours as needed fever CT brain revealed left sphenoid sinusitis otherwise unremarkable. Avoid sedatives RESP: KOMAL-compliance issues with CPAP at night? 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 CV: CAD with DORIAN RCA HLD Hypertension hx severe now s/p TAVR Chronic diastolic heart failure Echocardiogram revealed EF 55-60%. Trace MR/TR. PAP 29. TAVR no leak Trending troponin, downtrend from 0.6. Dr. Rico updated. Dr. Aguilar seen currently Currently on clopidogrel 75 mg daily and aspirin 81 mg daily. Continue Continue atorvastatin 20 mg daily for dyslipidemia Continue metoprolol succinate 12.5 mg daily and lisinopril 10 mg daily for hypertension GI: Ileus History of colonic diverticulosis Pantoprazole for GI prophylaxis Docusate sodium/senna 1 tablet twice daily for bowel regimen n.p.o. except for medications until cleared by speech therapy Fatty liver on ultrasound. Ammonia level less than 10 FEN/RENAL/: CKD Stage II Acute urinary retention Bilateral renal cyst Soto inserted, eventual voiding trials. U/a negative. Trend BMP. Renal ultrasound - Minimal perinephric fluid on the left which is nonspecific. Multiple bilateral renal cysts. No hydronephrosis or solid renal mass. Limited evaluation of the urinary bladder which is nondistended and contains a Soto catheter. Echogenic liver suggesting fatty infiltration or diffuse hepatocellular disease. ENDO: DM Hypothyroidism Low dose aspart insulin sliding scale ac/hs Holding home medications of glipizide 10 mg daily metformin 1000 mg twice daily Continue levothyroxine 125 mcg daily. Noted TSH is 0.341. Normally on 137 mcg daily ID: Left sphenoid sinusitis Monitor for signs and symptomatology infection. We will start on ceftriaxone 1 g IV every 24 hours. Blood cultures 2, UA, sputum and influenza a and B ordered. 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 Monitor CBC daily. Follow trends. MSK: Elevated BMI Osteopenia PT evaluate and treat Weight loss encouraged PROPH: Heparin 5000 subcut q12. Pantoprazole for stress ulcer prophylaxis. Discussed with the patient, his daughter at bedside, ICU nurse Discussed with Dr. Ramos pulmonology he will evaluate the patient later today
[2018-02-21] MEDS: hydroCHLOROthiazide 25 MG Tablet PO SCH (09:02)
[2018-02-21] MEDS: Lisinopril 10 MG Tablet PO SCH (09:02)
[2018-02-21] MEDS: Loratadine 10 MG Tablet PO SCH (09:02)
[2018-02-21] MEDS: Ferrous Sulfate 325 MG Tablet PO SCH (09:03)
[2018-02-21] MEDS: Heparin - SQ 10,000 UNITS/ML Vial SQ SCH ×2 (09:03→21:08)
[2018-02-21] MEDS: Pantoprazole Inj 40 MG Vial IV.PUSH SCH (09:03)
[2018-02-21 16:42] LABS: ABG Base Excess 2.6 mmol/L (-2-2); ABG PCO2 39 mmHg (38-42); ABG PO2 61 mmHG (61-120)
--- NOTE | 2018-02-21 17:12 | MB ---
cc: Betsy Meyer MD DATE: 02/21/2018 REASON FOR CONSULTATION: Respiratory failure, COPD, obstructive sleep apnea. HISTORY OF PRESENT ILLNESS: The patient is an 82-year-old female who was admitted with increasing shortness of breath and weakness, evidence of respiratory failure. The patient has been treated accordingly. PAST MEDICAL HISTORY: That of COPD, obstructive sleep apnea, hypertension, hypothyroidism, diabetes mellitus type 2, chronic kidney disease, breast cancer post bilateral mastectomies, aortic stenosis status post TAVR, hyperlipidemia, and diastolic congestive heart failure. FAMILY HISTORY: Noncontributory. SOCIAL HISTORY: Previous tobacco use, stopped at present. Does not drink any alcohol, does not use drugs. MEDICATIONS: Include: 1. Albuterol via DuoNeb via nebulization. 2. Atorvastatin. 3. Rocephin. 4. Vasotec. 5. Ferrous sulfate. 6. Gabapentin. 7. Levothyroxine. 8. Metoprolol. 9. Loratadine. 10. Lisinopril. 11. Pantoprazole. ALLERGIES: NONE KNOWN TO MEDICATION. REVIEW OF SYSTEMS: A 12-point review of systems as per HPI and past history; otherwise negative. PHYSICAL EXAMINATION: GENERAL: He is alert. VITAL SIGNS: Temperature 99, pulse 100, respiratory 18, blood pressure 124/66, oxygen saturation 92% on oxygen via nasal cannula. HEENT: Unremarkable. Eyes without icterus. NECK: Without adenopathy, thyroid enlargement; central trachea. CHEST: No dullness to percussion. Few rhonchi at bases on auscultation. CARDIOVASCULAR: S1, S2 audible. A 2/6 ejection systolic murmur in the left sternal border. ABDOMEN: Lax, audible bowel sounds. PSYCHIATRIC: No clubbing, cyanosis or edema. LABORATORY DATA: White count 6.2, hemoglobin 10, hematocrit 31. INR 1.1. Sodium 141, potassium 3.9, BUN 26, creatinine 1.0. DIAGNOSTIC DATA: Arterial blood gas 02/18/2018: PH 7.35, pCO2 of 54, pO2 66. IMPRESSION: 1. Chronic obstructive pulmonary disease exacerbation. 2. Respiratory failure. 3. Question pneumonia. 4. Obstructive sleep apnea, suspect. 5. Diabetes mellitus. 6. Aortic stenosis, status post transcatheter aortic valve replacement. 7. Chronic kidney disease. 8. Diabetes mellitus. 9. Obesity. PLAN: The patient will be maintained on oxygen therapy as needed; BiPAP therapy while sleeping would be helpful. Chest x-ray, arterial blood gas will be followed; bronchodilator therapy and antibiotic therapy will be continued. Further sleep evaluation post-discharge and attending compliance issues and treatment for sleep-disordered breathing or obesity hypoventilation will be undertaken. I do thank you for asking me to partake in Mrs. Agee's care. Betsy Meyer MD WWW/yuly , 02:54 PM , 03:05 PM
--- NOTE | 2018-02-22 01:40 | P.PNCA ---
Subjective Interval history: No events overnight Medications and Allergies Active Medications: Active Medications Acetaminophen (Tylenol) 650 mg PO Q6H PRN PRN Reason: Temp > 100.4 Last Admin: 02/18/18 09:39 Dose: 650 mg Albuterol (Duoneb Neb (Patrick)) 1 ampul NEB Q4HR NEB [facility] Last Admin: 02/21/18 23:13 Dose: 1 ampul Albuterol (Albuterol Neb (Prn)) 2.5 mg NEB Q2HR NEB PRN PRN Reason: DYSPNEA Aspirin (Ecotrin) 81 mg PO DAILY [facility] Last Admin: 02/21/18 09:04 Dose: Not Given Atorvastatin Calcium (Lipitor) 20 mg PO DAILY [facility] Last Admin: 02/21/18 09:02 Dose: 20 mg Bisacodyl (Dulcolax Supp) 10 mg RECTAL DAILY PRN PRN Reason: SEVERE CONSITIPATION Chlorhexidine Gluconate (Chlorhexidine 2% Cloth) 3 pack TOPICAL DAILY@0400 [facility] Stop: 02/24/18 03:59 Last Admin: 02/21/18 05:16 Dose: 3 pack Chlorhexidine Gluconate (Chlorhexidine 2% Cloth) 3 pack TOPICAL DAILY@0400 PRN PRN Reason: Extra cloth needed Stop: 02/24/18 03:59 Clonidine HCl (Catapres) 0.1 mg PO Q6H PRN PRN Reason: Sbp>165, Dbp>90, Hr>65 Last Admin: 02/19/18 18:30 Dose: 0.1 mg Clopidogrel Bisulfate (Plavix) 75 mg PO DAILY [facility] Last Admin: 02/21/18 09:02 Dose: 75 mg Dextrose (D50w Vial) 50 ml IV.PUSH UNSCH PRN PRN Reason: PER HYPOGLYCEMIA PROTOCOL Enalaprilat (Vasotec Inj) 1.25 mg IV.PUSH Q6H PRN PRN Reason: Sbp>165, Dbp>90 Ferrous Sulfate (Ferosul) 325 mg PO DAILY [facility] Last Admin: 02/21/18 09:03 Dose: Not Given Fluticasone/Vilanterol (Breo Ellipta 100/25 Mcg Inh) 1 puff INH DAILY [facility] Last Admin: 02/21/18 09:04 Dose: 1 puff Gabapentin (Neurontin) 100 mg PO TID [facility] Last Admin: 02/19/18 08:53 Dose: 100 mg Glucagon (Glucagon Inj) 1 mg OTHER PRN PRN PRN Reason: for Hypoglycemia Protocol Heparin Sodium (Porcine) (Heparin Inj) 5,000 units SQ Q12HR [facility] Last Admin: 02/21/18 21:08 Dose: 5,000 units Hydralazine HCl (Apresoline Inj) 10 mg IV.PUSH Q1H PRN PRN Reason: Sbp>165, Dbp>90 Last Admin: 02/20/18 02:43 Dose: 10 mg Hydrochlorothiazide (Hydrodiuril) 12.5 mg PO DAILY [facility] Last Admin: 02/21/18 09:02 Dose: 12.5 mg Ceftriaxone Sodium 1,000 mg/ (Sodium Chloride) 100 mls @ 200 mls/hr IV.SIG Q24H [facility] Last Infusion: 02/21/18 10:12 Dose: Infused Insulin Aspart (Novolog Insulin [place] Sugar Inj) 0 unit SQ ACHS AND 3AM [facility]; Protocol Last Admin: 02/21/18 21:15 Dose: 3 unit Labetalol HCl (Trandate Inj) 10 mg IV.PUSH Q1H PRN PRN Reason: Sbp>165, Dbp>90, Hr>65 Levothyroxine Sodium (Synthroid) 125 mcg PO DAILY@0600 [facility] Last Admin: 02/21/18 05:16 Dose: 125 mcg Lisinopril (Prinivil) 10 mg PO DAILY [facility] Last Admin: 02/21/18 09:02 Dose: 10 mg Loratadine (Claritin) 10 mg PO DAILY [facility] Last Admin: 02/21/18 09:02 Dose: 10 mg Metoprolol Succinate (Toprol Xl) 12.5 mg PO DAILY [facility] Last Admin: 02/21/18 09:01 Dose: 12.5 mg Ondansetron HCl (Zofran Inj) 4 mg IV.PUSH Q6H PRN PRN Reason: NAUSEA OR VOMITING Last Admin: 02/20/18 04:37 Dose: 4 mg Pantoprazole Sodium (Protonix Inj) 40 mg IV.PUSH Q24H [facility] Last Admin: 02/21/18 09:03 Dose: 40 mg Pt Own Med: Letrozole 2.5 Mg Tablet 0 each PO DAILY [facility] Sennosides (Senokot) 17.2 mg PO Q12H PRN PRN Reason: Moderate Constipation Sodium Chloride (Ns Flush) 2 ml IV.FLUSH UNSCH PRN PRN Reason: FLUSH AFTER USING IV ACCESS Allergies Allergy/AdvReac Type Severity Reaction Status Date / Time No Known Allergies Allergy Verified 02/16/18 05:43 Home Medications Medication Instructions Recorded Confirmed Type atorvastatin 20 mg PO DAILY 01/19/18 02/17/18 History gabapentin 100 mg PO TID 01/19/18 02/17/18 History glipizide 10 mg PO DAILY 01/19/18 02/17/18 History letrozole 2.5 mg PO DAILY 01/19/18 02/17/18 History levothyroxine 137 mcg PO DAILY 01/19/18 02/17/18 History lisinopril-hydrochlorothiazide 1 tab PO DAILY 01/19/18 02/17/18 History loratadine [Claritin] 10 mg PO DAILY 01/19/18 02/17/18 History metformin 1,000 mg PO BID 01/19/18 02/17/18 History potassium chloride [Klor-Con 10] 10 meq PO DAILY 01/19/18 02/17/18 History Physical Exam Vital signs: Vital Signs 02/21/18 02:00 02/21/18 03:00 02/21/18 03:01 Temperature Pulse Rate 98 H 94 H 95 H Respiratory Rate 19 16 10 L Blood Pressure 119/57 L 97/46 L Pulse Oximetry 96 97 97 02/21/18 03:25 02/21/18 04:00 02/21/18 05:00 Temperature 97.9 F Pulse Rate 93 H 95 H 90 Respiratory Rate 12 24 24 Blood Pressure 117/56 L 111/53 L Pulse Oximetry 91 L 83 L 02/21/18 05:35 02/21/18 06:00 02/21/18 06:01 Temperature Pulse Rate 94 H 95 H Respiratory Rate 22 23 Blood Pressure 161/71 H Pulse Oximetry 96 99 98 02/21/18 06:25 02/21/18 07:00 02/21/18 07:38 Temperature Pulse Rate 92 H 87 Respiratory Rate 22 11 L Blood Pressure 140/64 126/59 L Pulse Oximetry 99 100 95 02/21/18 08:00 02/21/18 09:00 02/21/18 09:01 Temperature 99.2 F Pulse Rate 96 H 100 H 100 H Respiratory Rate 25 H 26 H 33 H Blood Pressure 128/58 L 139/63 Pulse Oximetry 99 89 L 87 L 02/21/18 10:00 02/21/18 10:01 02/21/18 11:00 Temperature Pulse Rate 93 H 95 H 95 H Respiratory Rate 22 16 23 Blood Pressure 124/58 L 129/59 L Pulse Oximetry 95 95 98 02/21/18 12:00 02/21/18 13:00 02/21/18 14:00 Temperature 99.1 F Pulse Rate 103 H 100 H 98 H Respiratory Rate 30 H 31 H 33 H Blood Pressure 124/66 131/64 120/56 L Pulse Oximetry 83 L 95 98 02/21/18 15:00 02/21/18 16:00 02/21/18 16:01 Temperature 99.0 F Pulse Rate 94 H 103 H 104 H Respiratory Rate 35 H 34 H 34 H Blood Pressure 129/61 95/53 L Pulse Oximetry 97 88 L 88 L 02/21/18 18:00 02/21/18 19:14 02/21/18 20:00 Temperature 98.8 F Pulse Rate 101 H 99 H 101 H Respiratory Rate 28 H 36 H Blood Pressure 149/63 H Pulse Oximetry 100 92 L 02/21/18 22:00 02/21/18 23:13 02/22/18 00:00 Temperature 98.8 F Pulse Rate 101 H 93 H 92 H Respiratory Rate 20 18 Blood Pressure 129/58 L Pulse Oximetry 88 L Intake & Output 02/21/18 02/21/18 02/22/18 06:59 18:59 06:59 Intake Total 240 / 240 820 / 820 Output Total 350 / 350 500 / 500 Balance -110 / -110 320 / 320 Weight 80.3 kg Intake: IV 100 / 100 Rocephin Inj 1,000 MG In NS Inj 100 / 100 100 ML @ 200 mls/hr IV.SIG Q24H [facility] Rx#:[id number] Oral 240 / 240 720 / 720 Output: Urine Amount (Catheter) 350 / 350 500 / 500 Indwelling Urethral Catheter 350 / 350 500 / 500 Other: Date of Last Bowel Movement 02/15/18 # Bowel Movements 0 0 Narrative: GENERAL: 82-year-old female currently resting in bed, in no acute distress CARDIOVASCULAR: RRR. S1, S2. No S4. Pansystolic murmur 1 out of 6 noted RESPIRATORY: Few fine crackles appreciated in the bases bilaterally left greater than right. No wheezing. GASTROINTESTINAL: Abdomen obese. Not tender to palpation on my examination. Hypoactive bowel sounds appreciated MUSCULOSKELETAL: Extremities trace bilateral lower extremity edema. No obvious deformities. NEUROLOGICAL: Awake and alert. No obvious cranial nerve deficits. Motor grossly within normal limits. Five out of 5 muscle strength in the arms and legs. Speech normal. - Urinary Catheter Management Indwelling Urethral Catheter Cath placed during this visit: yes, but has since been removed by the nurse Reason for continuing: Decision to DC catheter Insertion date: 02/18/18 Insertion time: 05:26 Removal date: 02/21/18 Removal time: 17:20 Results 02/21/18 06:03 02/21/18 06:03 CBC 02/20/18 02/21/18 Range/Units 03:36 06:03 WBC 5.9 6.2 (4.0-11.0) th/mm3 RBC 3.37 L 3.29 L (4.00-5.30) mil/mm3 Hgb 10.8 L 10.5 L (11.6-15.3) gm/dL Hct 32.0 L 31.3 L (35.0-46.0) % Plt Count 145 L 169 (150-450) th/mm3 Neut # (Auto) 4.1 4.0 (1.8-7.7) th/mm3 Lymph # (Auto) 1.1 1.3 (1.0-4.8) th/mm3 [place] # (Auto) 0.6 0.7 (0.0-0.9) th/mm3 Eos # (Auto) 0.1 0.2 (0.0-0.4) th/mm3 Baso # (Auto) 0.0 0.1 (0.0-0.2) th/mm3 Comprehensive Metabolic Panel 02/20/18 02/21/18 Range/Units 03:36 06:03 Sodium 137 141 (136-145) meq/L Potassium 3.8 3.9 (3.5-5.1) meq/L Chloride 99 103 (98-107) meq/L Carbon Dioxide 28.0 27.5 (21.0-32.0) meq/L BUN 16 26 H (7-18) mg/dL Creatinine 0.86 1.03 H (0.50-1.00) mg/dL Calcium 8.6 8.2 L (8.5-10.1) mg/dL Intake and Output 02/21/18 02/21/18 02/22/18 14:59 22:59 06:59 Intake Total 100 / 100 720 / 720 Output Total 500 / 500 Balance 100 / 100 220 / 220 Intake: IV 100 / 100 Rocephin Inj 1,000 MG In NS Inj 100 / 100 100 ML @ 200 mls/hr IV.SIG Q24H [facility] Rx#:[id number] Oral 720 / 720 Output: Urine Amount (Catheter) 500 / 500 Indwelling Urethral Catheter 500 / 500 Other: # Bowel Movements 0 - Imaging and Cardiology Imaging: Impressions Chest X-Ray 02/20/18 06:00 CONCLUSION: No significant change. Assessment and Plan - Assessment (1) Acute respiratory failure Code(s): J96.00 - Acute respiratory failure, unspecified whether with hypoxia or hypercapnia Status: Acute (2) Aortic stenosis Code(s): I35.0 - Nonrheumatic aortic (valve) stenosis Status: Acute (3) CAD (coronary artery disease) Code(s): I25.10 - Atherosclerotic heart disease of [place] coronary artery without angina pectoris Status: Acute (4) Diastolic CHF Code(s): I50.30 - Unspecified diastolic (congestive) heart failure Status: Acute (5) S/p TAVR (transcatheter aortic valve replacement), bioprosthetic Code(s): Z95.3 - Presence of xenogenic heart valve Status: Acute (6) Acute on chronic diastolic (congestive) heart failure Code(s): I50.33 - Acute on chronic diastolic (congestive) heart failure Status : Acute (7) Elevated troponin Code(s): R74.8 - Abnormal levels of other serum enzymes Status: Acute (8) Hypoxemia Code(s): R09.02 - Hypoxemia Status: Acute - Plan 1) Acute respiratory failure Most likely CO2 retention Mildly diuresing, which may be a small component of SOB 2) Encephalopathy due to CO2 retention Resolved 3) Echo showing normal functioning TAVR valve 4) Con't on ASA/Plavix for TAVR and previous PCI 5) Up out of bed to chair as much as possible PT ordered, per nursing will make sure that they work with her tomorrow (2) Aortic stenosis Qualifiers: (3) CAD (coronary artery disease) Qualifiers: Coronary Disease-Associated Artery/Lesion type: [place] artery [place] vs. transplanted heart: [place] heart Associated angina: without angina Qualified Code(s): I25.10 - Atherosclerotic heart disease of [place] coronary artery without angina pectoris
[2018-02-22] MEDS: Insulin NovoLOG Aspart Correctional Sugar Inj SQ SCH ×5 (03:00→21:21)
[2018-02-22] MEDS: Chlorhexidine Gluconate 2% 1 Pack (2 Cloths) TOPICAL SCH (06:17)
[2018-02-22] MEDS: Levothyroxine 125 MCG Tablet PO SCH (06:45)
[2018-02-22] MEDS: hydroCHLOROthiazide 25 MG Tablet PO SCH (08:00)
[2018-02-22] MEDS: Loratadine 10 MG Tablet PO SCH (08:00)
[2018-02-22] MEDS: Ferrous Sulfate 325 MG Tablet PO SCH (08:00)
[2018-02-22] MEDS: Lisinopril 10 MG Tablet PO SCH (08:00)
[2018-02-22] MEDS: Heparin - SQ 10,000 UNITS/ML Vial SQ SCH ×2 (08:01→21:21)
[2018-02-22] MEDS: Pantoprazole Inj 40 MG Vial IV.PUSH SCH (09:27)
--- NOTE | 2018-02-22 10:34 | P.PN ---
Subjective Interval history: At the margin of the bed, appears in nad Eating No wheezing, sob at baseline. No confusion Was on biapap overnight no cough Physical Exam Vital signs: Vital Signs 02/21/18 11:00 02/21/18 12:00 02/21/18 13:00 Temperature 99.1 F Pulse Rate 95 H 103 H 100 H Respiratory Rate 23 30 H 31 H Blood Pressure 129/59 L 124/66 131/64 Pulse Oximetry 98 83 L 95 02/21/18 14:00 02/21/18 15:00 02/21/18 16:00 Temperature 99.0 F Pulse Rate 98 H 94 H 103 H Respiratory Rate 33 H 35 H 34 H Blood Pressure 120/56 L 129/61 Pulse Oximetry 98 97 88 L 02/21/18 16:01 02/21/18 17:00 02/21/18 17:01 Temperature Pulse Rate 104 H 99 H 99 H Respiratory Rate 34 H 32 H 32 H Blood Pressure 95/53 L 118/56 L Pulse Oximetry 88 L 02/21/18 18:00 02/21/18 19:00 02/21/18 19:14 Temperature Pulse Rate 96 H 101 H 99 H Respiratory Rate 31 H 41 H 28 H Blood Pressure 131/62 129/95 H Pulse Oximetry 100 02/21/18 20:00 02/21/18 20:01 02/21/18 21:00 Temperature 98.8 F Pulse Rate 101 H 102 H 97 H Respiratory Rate 36 H 34 H 38 H Blood Pressure 149/63 H 149/63 H Pulse Oximetry 92 L 87 L 91 L 02/21/18 21:01 02/21/18 22:00 02/21/18 23:00 Temperature Pulse Rate 99 H 93 H 91 H Respiratory Rate 33 H 26 H 21 Blood Pressure 133/87 117/73 Pulse Oximetry 91 L 92 L 93 L 02/21/18 23:01 02/21/18 23:13 02/22/18 00:00 Temperature 98.8 F Pulse Rate 91 H 93 H 92 H Respiratory Rate 21 20 18 Blood Pressure 158/68 H 129/58 L Pulse Oximetry 94 L 92 L 02/22/18 00:01 02/22/18 01:00 02/22/18 01:01 Temperature Pulse Rate 92 H 92 H 92 H Respiratory Rate 22 17 23 Blood Pressure 129/58 L 117/56 L Pulse Oximetry 93 L 93 L 93 L 02/22/18 02:00 02/22/18 03:00 02/22/18 04:00 Temperature 98.6 F Pulse Rate 93 H 92 H 94 H Respiratory Rate 23 17 16 Blood Pressure 120/55 L 105/52 L 157/67 H Pulse Oximetry 89 L 91 L 88 L 02/22/18 04:01 02/22/18 04:32 02/22/18 05:00 Temperature Pulse Rate 94 H 93 H 100 H Respiratory Rate 17 18 29 H Blood Pressure 157/67 H Pulse Oximetry 88 L 87 L 02/22/18 05:01 02/22/18 06:00 02/22/18 07:00 Temperature Pulse Rate 101 H 98 H 96 H Respiratory Rate 26 H 25 H 22 Blood Pressure 137/63 126/60 137/66 Pulse Oximetry 87 L 92 L 95 02/22/18 07:43 02/22/18 08:00 02/22/18 08:01 Temperature 97.8 F Pulse Rate 94 H 100 H 100 H Respiratory Rate 27 H 36 H 28 H Blood Pressure 149/63 H Pulse Oximetry 92 L 87 L 95 02/22/18 10:00 Temperature Pulse Rate 97 H Respiratory Rate Blood Pressure Pulse Oximetry Intake & Output 02/21/18 02/22/18 02/22/18 18:59 06:59 18:59 Intake Total 820 / 820 300 / 300 100 / 100 Output Total 500 / 500 725 / 725 Balance 320 / 320 -425 / -425 100 / 100 Weight 80 kg Intake: IV 100 / 100 100 / 100 Rocephin Inj 1,000 MG In NS Inj 100 / 100 100 / 100 100 ML @ 200 mls/hr IV.SIG Q24H [facility] Rx#:[id number] Oral 720 / 720 300 / 300 Output: Urine 75 / 75 Urine Amount (Catheter) 500 / 500 650 / 650 Indwelling Urethral Catheter 500 / 500 Straight 650 / 650 Other: # Bowel Movements 0 Narrative: GENERAL: 82-year-old female currently resting in bed, in no acute distress CARDIOVASCULAR: RRR. S1, S2. No S4. Pansystolic murmur 1 out of 6 noted RESPIRATORY: Few fine crackles appreciated in the bases bilaterally left greater than right. No wheezing. GASTROINTESTINAL: Abdomen obese. Not tender to palpation on my examination. Hypoactive bowel sounds appreciated MUSCULOSKELETAL: Extremities trace bilateral lower extremity edema. No obvious deformities. NEUROLOGICAL: Awake and alert. No obvious cranial nerve deficits. Motor grossly within normal limits. Five out of 5 muscle strength in the arms and legs. Speech normal. - Urinary Catheter Management Indwelling Urethral Catheter Cath placed during this visit: yes, but has since been removed by the nurse Reason for continuing: Decision to DC catheter Insertion date: 02/18/18 Insertion time: 05:26 Removal date: 02/21/18 Removal time: 17:20 Straight Cath placed during this visit: no Reason for continuing: Not indwelling catheter Results - Labs CBC & Chem 7: 02/21/18 06:03 02/21/18 06:03 Laboratory Results - last 24 hr 02/21/18 02/21/18 02/21/18 06:03 12:56 16:20 Puncture Site Right radial Patient Temperature 98.6 O2 Saturation 89 L* ABG pH 7.44 H ABG pCO2 39 ABG pO2 61 ABG HCO3 26 ABG O2 Content 12.3 ABG Base Excess 2.6 H ABG Methemoglobin 1.2 Yann Test Present Hemoglobin 9.8 L Carboxyhemoglobin 1.8 O2 Delivery Device Nasal cannula Liter Flow 3.00 Inspired O2 32 Critical Value Yes POC Glucose 196 H TSH 0.750 02/21/18 02/21/18 02/22/18 17:42 21:13 03:20 Puncture Site Patient Temperature O2 Saturation ABG pH ABG pCO2 ABG pO2 ABG HCO3 ABG O2 Content ABG Base Excess ABG Methemoglobin Yann Test Hemoglobin Carboxyhemoglobin O2 Delivery Device Liter Flow Inspired O2 Critical Value POC Glucose 194 H 218 H 157 H TSH 02/22/18 07:55 Puncture Site Patient Temperature O2 Saturation ABG pH ABG pCO2 ABG pO2 ABG HCO3 ABG O2 Content ABG Base Excess ABG Methemoglobin Yann Test Hemoglobin Carboxyhemoglobin O2 Delivery Device Liter Flow Inspired O2 Critical Value POC Glucose 206 H TSH Microbiology 02/19/18 16:58 Sputum - Expectorated Sputum Gram Stain - Final 02/19/18 16:58 Sputum - Expectorated Sputum Sputum Culture - Final Heavy growth normal respiratory leora 02/18/18 19:17 Blood - Peripheral Aerobic Blood Culture - Preliminary No growth in 3 days 02/18/18 19:17 Blood - Peripheral Anaerobic Blood Culture - Preliminary No growth in 3 days 02/18/18 19:12 Blood - Peripheral Aerobic Blood Culture - Preliminary No growth in 3 days 02/18/18 19:12 Blood - Peripheral Anaerobic Blood Culture - Preliminary No growth in 3 days Assessment and Plan - Plan NEURO/Psych: Acute encephalopathy likely secondary to CO2 retention Peripheral neuropathy Depression/anxiety History of bilateral cataract removal Currently on gabapentin 100 mg 3 times daily/we will hold with altered mental status Acetaminophen 650 p.o. every 6 hours as needed fever CT brain revealed left sphenoid sinusitis otherwise unremarkable. Avoid sedatives RESP: KOMAL-compliance issues with CPAP at night? 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 CV: CAD with DORIAN RCA HLD Hypertension hx severe now s/p TAVR Chronic diastolic heart failure Echocardiogram revealed EF 55-60%. Trace MR/TR. PAP 29. TAVR no leak Trending troponin, downtrend from 0.6. Dr. Rico updated. Dr. Aguilar seen currently Currently on clopidogrel 75 mg daily and aspirin 81 mg daily. Continue Continue atorvastatin 20 mg daily for dyslipidemia Continue metoprolol succinate 12.5 mg daily and lisinopril 10 mg daily for hypertension GI: Ileus History of colonic diverticulosis Pantoprazole for GI prophylaxis Docusate sodium/senna 1 tablet twice daily for bowel regimen n.p.o. except for medications until cleared by speech therapy Fatty liver on ultrasound. Ammonia level less than 10 FEN/RENAL/: CKD Stage II Acute urinary retention Bilateral renal cyst Soto inserted, eventual voiding trials. U/a negative. Trend BMP. Renal ultrasound - Minimal perinephric fluid on the left which is nonspecific. Multiple bilateral renal cysts. No hydronephrosis or solid renal mass. Limited evaluation of the urinary bladder which is nondistended and contains a Soto catheter. Echogenic liver suggesting fatty infiltration or diffuse hepatocellular disease. ENDO: DM Hypothyroidism Low dose aspart insulin sliding scale ac/hs Holding home medications of glipizide 10 mg daily metformin 1000 mg twice daily Continue levothyroxine 125 mcg daily. Noted TSH is 0.341. Normally on 137 mcg daily ID: Left sphenoid sinusitis Monitor for signs and symptomatology infection. We will start on ceftriaxone 1 g IV every 24 hours. Blood cultures 2, UA, sputum and influenza a and B ordered. 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 Monitor CBC daily. Follow trends. MSK: Elevated BMI Osteopenia PT evaluate and treat Weight loss encouraged PROPH: Heparin 5000 subcut q12. Pantoprazole for stress ulcer prophylaxis. Discussed with the patient, ICU nurse, Grazyna Mojica DC to SN[facility] , patient to use her own cpap machine Discussed with Dr. Ramso pulmonology he will evaluate the patient later today Patient was seen by Dr Jose ferguson
--- NOTE | 2018-02-22 10:58 | P.PN ---
Subjective Interval history: ALERT LESS SOB Physical Exam Vital signs: Vital Signs 02/21/18 11:00 02/21/18 12:00 02/21/18 13:00 Temperature 99.1 F Pulse Rate 95 H 103 H 100 H Respiratory Rate 23 30 H 31 H Blood Pressure 129/59 L 124/66 131/64 Pulse Oximetry 98 83 L 95 02/21/18 14:00 02/21/18 15:00 02/21/18 16:00 Temperature 99.0 F Pulse Rate 98 H 94 H 103 H Respiratory Rate 33 H 35 H 34 H Blood Pressure 120/56 L 129/61 Pulse Oximetry 98 97 88 L 02/21/18 16:01 02/21/18 17:00 02/21/18 17:01 Temperature Pulse Rate 104 H 99 H 99 H Respiratory Rate 34 H 32 H 32 H Blood Pressure 95/53 L 118/56 L Pulse Oximetry 88 L 02/21/18 18:00 02/21/18 19:00 02/21/18 19:14 Temperature Pulse Rate 96 H 101 H 99 H Respiratory Rate 31 H 41 H 28 H Blood Pressure 131/62 129/95 H Pulse Oximetry 100 02/21/18 20:00 02/21/18 20:01 02/21/18 21:00 Temperature 98.8 F Pulse Rate 101 H 102 H 97 H Respiratory Rate 36 H 34 H 38 H Blood Pressure 149/63 H 149/63 H Pulse Oximetry 92 L 87 L 91 L 02/21/18 21:01 02/21/18 22:00 02/21/18 23:00 Temperature Pulse Rate 99 H 93 H 91 H Respiratory Rate 33 H 26 H 21 Blood Pressure 133/87 117/73 Pulse Oximetry 91 L 92 L 93 L 02/21/18 23:01 02/21/18 23:13 02/22/18 00:00 Temperature 98.8 F Pulse Rate 91 H 93 H 92 H Respiratory Rate 21 20 18 Blood Pressure 158/68 H 129/58 L Pulse Oximetry 94 L 92 L 02/22/18 00:01 02/22/18 01:00 02/22/18 01:01 Temperature Pulse Rate 92 H 92 H 92 H Respiratory Rate 22 17 23 Blood Pressure 129/58 L 117/56 L Pulse Oximetry 93 L 93 L 93 L 02/22/18 02:00 02/22/18 03:00 02/22/18 04:00 Temperature 98.6 F Pulse Rate 93 H 92 H 94 H Respiratory Rate 23 17 16 Blood Pressure 120/55 L 105/52 L 157/67 H Pulse Oximetry 89 L 91 L 88 L 02/22/18 04:01 02/22/18 04:32 02/22/18 05:00 Temperature Pulse Rate 94 H 93 H 100 H Respiratory Rate 17 18 29 H Blood Pressure 157/67 H Pulse Oximetry 88 L 87 L 02/22/18 05:01 02/22/18 06:00 02/22/18 07:00 Temperature Pulse Rate 101 H 98 H 96 H Respiratory Rate 26 H 25 H 22 Blood Pressure 137/63 126/60 137/66 Pulse Oximetry 87 L 92 L 95 02/22/18 07:43 02/22/18 08:00 02/22/18 08:01 Temperature 97.8 F Pulse Rate 94 H 100 H 100 H Respiratory Rate 27 H 36 H 28 H Blood Pressure 149/63 H Pulse Oximetry 92 L 87 L 95 02/22/18 10:00 Temperature Pulse Rate 97 H Respiratory Rate Blood Pressure Pulse Oximetry Intake & Output 02/21/18 02/22/18 02/22/18 18:59 06:59 18:59 Intake Total 820 / 820 300 / 300 100 / 100 Output Total 500 / 500 725 / 725 Balance 320 / 320 -425 / -425 100 / 100 Weight 80 kg Intake: IV 100 / 100 100 / 100 Rocephin Inj 1,000 MG In NS Inj 100 / 100 100 / 100 100 ML @ 200 mls/hr IV.SIG Q24H [facility] Rx#:[id number] Oral 720 / 720 300 / 300 Output: Urine 75 / 75 Urine Amount (Catheter) 500 / 500 650 / 650 Indwelling Urethral Catheter 500 / 500 Straight 650 / 650 Other: # Bowel Movements 0 Narrative: GENERAL: 82-year-old female currently resting in bed, in no acute distress CARDIOVASCULAR: RRR. S1, S2. No S4. Pansystolic murmur 1 out of 6 noted RESPIRATORY: Few fine crackles appreciated in the bases bilaterally left greater than right. No wheezing. GASTROINTESTINAL: Abdomen obese. Not tender to palpation on my examination. Hypoactive bowel sounds appreciated MUSCULOSKELETAL: Extremities trace bilateral lower extremity edema. No obvious deformities. NEUROLOGICAL: Awake and alert. No obvious cranial nerve deficits. Motor grossly within normal limits. Five out of 5 muscle strength in the arms and legs. Speech normal. - Urinary Catheter Management Indwelling Urethral Catheter Cath placed during this visit: yes, but has since been removed by the nurse Reason for continuing: Decision to DC catheter Insertion date: 02/18/18 Insertion time: 05:26 Removal date: 02/21/18 Removal time: 17:20 Straight Cath placed during this visit: no Reason for continuing: Not indwelling catheter Results - Labs CBC & Chem 7: 02/21/18 06:03 02/21/18 06:03 Laboratory Results - last 24 hr 02/21/18 02/21/18 02/21/18 06:03 12:56 16:20 Puncture Site Right radial Patient Temperature 98.6 O2 Saturation 89 L* ABG pH 7.44 H ABG pCO2 39 ABG pO2 61 ABG HCO3 26 ABG O2 Content 12.3 ABG Base Excess 2.6 H ABG Methemoglobin 1.2 Yann Test Present Hemoglobin 9.8 L Carboxyhemoglobin 1.8 O2 Delivery Device Nasal cannula Liter Flow 3.00 Inspired O2 32 Critical Value Yes POC Glucose 196 H TSH 0.750 02/21/18 02/21/18 02/22/18 17:42 21:13 03:20 Puncture Site Patient Temperature O2 Saturation ABG pH ABG pCO2 ABG pO2 ABG HCO3 ABG O2 Content ABG Base Excess ABG Methemoglobin Yann Test Hemoglobin Carboxyhemoglobin O2 Delivery Device Liter Flow Inspired O2 Critical Value POC Glucose 194 H 218 H 157 H TSH 02/22/18 07:55 Puncture Site Patient Temperature O2 Saturation ABG pH ABG pCO2 ABG pO2 ABG HCO3 ABG O2 Content ABG Base Excess ABG Methemoglobin Yann Test Hemoglobin Carboxyhemoglobin O2 Delivery Device Liter Flow Inspired O2 Critical Value POC Glucose 206 H TSH Microbiology 02/19/18 16:58 Sputum - Expectorated Sputum Gram Stain - Final 02/19/18 16:58 Sputum - Expectorated Sputum Sputum Culture - Final Heavy growth normal respiratory leora 02/18/18 19:17 Blood - Peripheral Aerobic Blood Culture - Preliminary No growth in 3 days 02/18/18 19:17 Blood - Peripheral Anaerobic Blood Culture - Preliminary No growth in 3 days 02/18/18 19:12 Blood - Peripheral Aerobic Blood Culture - Preliminary No growth in 3 days 02/18/18 19:12 Blood - Peripheral Anaerobic Blood Culture - Preliminary No growth in 3 days Assessment and Plan - Plan COPD EXACERBATION RESPIRATORY FAILURE KOMAL SUSPECT DM CKD PLAN O2 NEEDED BRONCHODILATORS INCREASE ACTIVITY
--- NOTE | 2018-02-22 12:56 | P.PNCA ---
Subjective Interval history: No events Up to the chair this morning Medications and Allergies Active Medications: Active Medications Acetaminophen (Tylenol) 650 mg PO Q6H PRN PRN Reason: Temp > 100.4 Last Admin: 02/18/18 09:39 Dose: 650 mg Albuterol (Albuterol Neb (Prn)) 2.5 mg NEB Q2HR NEB PRN PRN Reason: DYSPNEA Aspirin (Ecotrin) 81 mg PO DAILY [facility] Last Admin: 02/22/18 08:01 Dose: 81 mg Atorvastatin Calcium (Lipitor) 20 mg PO DAILY [facility] Last Admin: 02/22/18 08:00 Dose: 20 mg Bisacodyl (Dulcolax Supp) 10 mg RECTAL DAILY PRN PRN Reason: SEVERE CONSITIPATION Chlorhexidine Gluconate (Chlorhexidine 2% Cloth) 3 pack TOPICAL DAILY@0400 [facility] Stop: 02/24/18 03:59 Last Admin: 02/22/18 06:17 Dose: 3 pack Chlorhexidine Gluconate (Chlorhexidine 2% Cloth) 3 pack TOPICAL DAILY@0400 PRN PRN Reason: Extra cloth needed Stop: 02/24/18 03:59 Clonidine HCl (Catapres) 0.1 mg PO Q6H PRN PRN Reason: Sbp>165, Dbp>90, Hr>65 Last Admin: 02/19/18 18:30 Dose: 0.1 mg Clopidogrel Bisulfate (Plavix) 75 mg PO DAILY [facility] Last Admin: 02/22/18 08:00 Dose: 75 mg Dextrose (D50w Vial) 50 ml IV.PUSH UNSCH PRN PRN Reason: PER HYPOGLYCEMIA PROTOCOL Enalaprilat (Vasotec Inj) 1.25 mg IV.PUSH Q6H PRN PRN Reason: Sbp>165, Dbp>90 Ferrous Sulfate (Ferosul) 325 mg PO DAILY [facility] Last Admin: 02/22/18 08:00 Dose: 325 mg Fluticasone/Vilanterol (Breo Ellipta 100/25 Mcg Inh) 1 puff INH DAILY [facility] Last Admin: 02/22/18 07:59 Dose: 1 puff Gabapentin (Neurontin) 100 mg PO TID [facility] Last Admin: 02/19/18 08:53 Dose: 100 mg Glucagon (Glucagon Inj) 1 mg OTHER PRN PRN PRN Reason: for Hypoglycemia Protocol Heparin Sodium (Porcine) (Heparin Inj) 5,000 units SQ Q12HR [facility] Last Admin: 02/22/18 08:01 Dose: 5,000 units Hydralazine HCl (Apresoline Inj) 10 mg IV.PUSH Q1H PRN PRN Reason: Sbp>165, Dbp>90 Last Admin: 02/20/18 02:43 Dose: 10 mg Hydrochlorothiazide (Hydrodiuril) 12.5 mg PO DAILY [facility] Last Admin: 02/22/18 08:00 Dose: 12.5 mg Ceftriaxone Sodium 1,000 mg/ (Sodium Chloride) 100 mls @ 200 mls/hr IV.SIG Q24H [facility] Last Infusion: 02/22/18 10:18 Dose: Infused Insulin Aspart (Novolog Insulin Correctional Sugar Inj) 0 unit SQ ACHS AND 3AM [facility]; Protocol Last Admin: 02/22/18 08:01 Dose: 3 unit Labetalol HCl (Trandate Inj) 10 mg IV.PUSH Q1H PRN PRN Reason: Sbp>165, Dbp>90, Hr>65 Levothyroxine Sodium (Synthroid) 125 mcg PO DAILY@0600 [facility] Last Admin: 02/22/18 06:45 Dose: 125 mcg Lisinopril (Prinivil) 10 mg PO DAILY [facility] Last Admin: 02/22/18 08:00 Dose: 10 mg Loratadine (Claritin) 10 mg PO DAILY [facility] Last Admin: 02/22/18 08:00 Dose: 10 mg Metoprolol Succinate (Toprol Xl) 12.5 mg PO DAILY [facility] Last Admin: 02/22/18 08:00 Dose: 12.5 mg Ondansetron HCl (Zofran Inj) 4 mg IV.PUSH Q6H PRN PRN Reason: NAUSEA OR VOMITING Last Admin: 02/20/18 04:37 Dose: 4 mg Pantoprazole Sodium (Protonix Inj) 40 mg IV.PUSH Q24H [facility] Last Admin: 02/22/18 09:27 Dose: 40 mg Pt Own Med: Letrozole 2.5 Mg Tablet 0 each PO DAILY [facility] Sennosides (Senokot) 17.2 mg PO Q12H PRN PRN Reason: Moderate Constipation Sodium Chloride (Ns Flush) 2 ml IV.FLUSH UNSCH PRN PRN Reason: FLUSH AFTER USING IV ACCESS Allergies Allergy/AdvReac Type Severity Reaction Status Date / Time No Known Allergies Allergy Verified 02/16/18 05:43 Home Medications Medication Instructions Recorded Confirmed Type atorvastatin 20 mg PO DAILY 01/19/18 02/17/18 History gabapentin 100 mg PO TID 01/19/18 02/17/18 History glipizide 10 mg PO DAILY 01/19/18 02/17/18 History letrozole 2.5 mg PO DAILY 01/19/18 02/17/18 History levothyroxine 137 mcg PO DAILY 01/19/18 02/17/18 History lisinopril-hydrochlorothiazide 1 tab PO DAILY 01/19/18 02/17/18 History loratadine [Claritin] 10 mg PO DAILY 01/19/18 02/17/18 History metformin 1,000 mg PO BID 01/19/18 02/17/18 History potassium chloride [Klor-Con 10] 10 meq PO DAILY 01/19/18 02/17/18 History Physical Exam Vital signs: Vital Signs 02/21/18 13:00 02/21/18 14:00 02/21/18 15:00 Temperature Pulse Rate 100 H 98 H 94 H Respiratory Rate 31 H 33 H 35 H Blood Pressure 131/64 120/56 L 129/61 Pulse Oximetry 95 98 97 02/21/18 16:00 02/21/18 16:01 02/21/18 17:00 Temperature 99.0 F Pulse Rate 103 H 104 H 99 H Respiratory Rate 34 H 34 H 32 H Blood Pressure 95/53 L Pulse Oximetry 88 L 88 L 02/21/18 17:01 02/21/18 18:00 02/21/18 19:00 Temperature Pulse Rate 99 H 96 H 101 H Respiratory Rate 32 H 31 H 41 H Blood Pressure 118/56 L 131/62 129/95 H Pulse Oximetry 02/21/18 19:14 02/21/18 20:00 02/21/18 20:01 Temperature 98.8 F Pulse Rate 99 H 101 H 102 H Respiratory Rate 28 H 36 H 34 H Blood Pressure 149/63 H 149/63 H Pulse Oximetry 100 92 L 87 L 02/21/18 21:00 02/21/18 21:01 02/21/18 22:00 Temperature Pulse Rate 97 H 99 H 93 H Respiratory Rate 38 H 33 H 26 H Blood Pressure 133/87 117/73 Pulse Oximetry 91 L 91 L 92 L 02/21/18 23:00 02/21/18 23:01 02/21/18 23:13 Temperature Pulse Rate 91 H 91 H 93 H Respiratory Rate 21 21 20 Blood Pressure 158/68 H Pulse Oximetry 93 L 94 L 02/22/18 00:00 02/22/18 00:01 02/22/18 01:00 Temperature 98.8 F Pulse Rate 92 H 92 H 92 H Respiratory Rate 18 22 17 Blood Pressure 129/58 L 129/58 L Pulse Oximetry 92 L 93 L 93 L 02/22/18 01:01 02/22/18 02:00 02/22/18 03:00 Temperature Pulse Rate 92 H 93 H 92 H Respiratory Rate 23 23 17 Blood Pressure 117/56 L 120/55 L 105/52 L Pulse Oximetry 93 L 89 L 91 L 02/22/18 04:00 02/22/18 04:01 02/22/18 04:32 Temperature 98.6 F Pulse Rate 94 H 94 H 93 H Respiratory Rate 16 17 18 Blood Pressure 157/67 H 157/67 H Pulse Oximetry 88 L 88 L 02/22/18 05:00 02/22/18 05:01 02/22/18 06:00 Temperature Pulse Rate 100 H 101 H 98 H Respiratory Rate 29 H 26 H 25 H Blood Pressure 137/63 126/60 Pulse Oximetry 87 L 87 L 92 L 02/22/18 07:00 02/22/18 07:43 02/22/18 08:00 Temperature 97.8 F Pulse Rate 96 H 94 H 100 H Respiratory Rate 22 27 H 36 H Blood Pressure 137/66 Pulse Oximetry 95 92 L 87 L 02/22/18 08:01 02/22/18 10:00 02/22/18 11:03 Temperature Pulse Rate 100 H 97 H 107 H Respiratory Rate 28 H 20 Blood Pressure 149/63 H Pulse Oximetry 95 Intake & Output 02/21/18 02/22/18 02/22/18 18:59 06:59 18:59 Intake Total 820 / 820 300 / 300 100 / 100 Output Total 500 / 500 725 / 725 Balance 320 / 320 -425 / -425 100 / 100 Weight 80 kg Intake: IV 100 / 100 100 / 100 Rocephin Inj 1,000 MG In NS Inj 100 / 100 100 / 100 100 ML @ 200 mls/hr IV.SIG Q24H [facility] Rx#:[id number] Oral 720 / 720 300 / 300 Output: Urine 75 / 75 Urine Amount (Catheter) 500 / 500 650 / 650 Indwelling Urethral Catheter 500 / 500 Straight 650 / 650 Other: # Bowel Movements 0 Narrative: GENERAL: 82-year-old female currently resting in bed, in no acute distress CARDIOVASCULAR: RRR. S1, S2. No S4. Pansystolic murmur 1 out of 6 noted RESPIRATORY: Few fine crackles appreciated in the bases bilaterally left greater than right. No wheezing. GASTROINTESTINAL: Abdomen obese. Not tender to palpation on my examination. Hypoactive bowel sounds appreciated MUSCULOSKELETAL: Extremities trace bilateral lower extremity edema. No obvious deformities. NEUROLOGICAL: Awake and alert. No obvious cranial nerve deficits. Motor grossly within normal limits. Five out of 5 muscle strength in the arms and legs. Speech normal. - Urinary Catheter Management Indwelling Urethral Catheter Cath placed during this visit: yes, but has since been removed by the nurse Reason for continuing: Decision to DC catheter Insertion date: 02/18/18 Insertion time: 05:26 Removal date: 02/21/18 Removal time: 17:20 Straight Cath placed during this visit: no Reason for continuing: Not indwelling catheter Results 02/21/18 06:03 02/21/18 06:03 CBC 02/21/18 Range/Units 06:03 WBC 6.2 (4.0-11.0) th/mm3 RBC 3.29 L (4.00-5.30) mil/mm3 Hgb 10.5 L (11.6-15.3) gm/dL Hct 31.3 L (35.0-46.0) % Plt Count 169 (150-450) th/mm3 Neut # (Auto) 4.0 (1.8-7.7) th/mm3 Lymph # (Auto) 1.3 (1.0-4.8) th/mm3 Ritchie # (Auto) 0.7 (0.0-0.9) th/mm3 Eos # (Auto) 0.2 (0.0-0.4) th/mm3 Baso # (Auto) 0.1 (0.0-0.2) th/mm3 Comprehensive Metabolic Panel 02/21/18 Range/Units 06:03 Sodium 141 (136-145) meq/L Potassium 3.9 (3.5-5.1) meq/L Chloride 103 (98-107) meq/L Carbon Dioxide 27.5 (21.0-32.0) meq/L BUN 26 H (7-18) mg/dL Creatinine 1.03 H (0.50-1.00) mg/dL Calcium 8.2 L (8.5-10.1) mg/dL Intake and Output 02/21/18 02/22/18 02/22/18 22:59 06:59 14:59 Intake Total 720 / 720 300 / 300 100 / 100 Output Total 500 / 500 725 / 725 Balance 220 / 220 -425 / -425 100 / 100 Intake: IV 100 / 100 Rocephin Inj 1,000 MG In NS Inj 100 / 100 100 ML @ 200 mls/hr IV.SIG Q24H [facility] Rx#:[id number] Oral 720 / 720 300 / 300 Output: Urine 75 / 75 Urine Amount (Catheter) 500 / 500 650 / 650 Indwelling Urethral Catheter 500 / 500 Straight 650 / 650 Other: # Bowel Movements 0 Weight 80 kg Assessment and Plan - Assessment (1) Acute respiratory failure Code(s): J96.00 - Acute respiratory failure, unspecified whether with hypoxia or hypercapnia Status: Acute (2) Aortic stenosis Code(s): I35.0 - Nonrheumatic aortic (valve) stenosis Status: Acute (3) CAD (coronary artery disease) Code(s): I25.10 - Atherosclerotic heart disease of [place] coronary artery without angina pectoris Status: Acute (4) Diastolic CHF Code(s): I50.30 - Unspecified diastolic (congestive) heart failure Status: Acute (5) S/p TAVR (transcatheter aortic valve replacement), bioprosthetic Code(s): Z95.3 - Presence of xenogenic heart valve Status: Acute (6) Acute on chronic diastolic (congestive) heart failure Code(s): I50.33 - Acute on chronic diastolic (congestive) heart failure Status : Acute (7) Elevated troponin Code(s): R74.8 - Abnormal levels of other serum enzymes Status: Acute (8) Hypoxemia Code(s): R09.02 - Hypoxemia Status: Acute - Plan 1) Acute respiratory failure Most likely CO2 retention Mildly diuresing, which may be a small component of SOB 2) Encephalopathy due to CO2 retention Resolved 3) Echo showing normal functioning TAVR valve 4) Con't on ASA/Plavix for TAVR and previous PCI 5) Up out of bed to chair as much as possible PT ordered, up to the chair (2) Aortic stenosis Qualifiers: (3) CAD (coronary artery disease) Qualifiers: Coronary Disease-Associated Artery/Lesion type: [place] artery [place] vs. transplanted heart: [place] heart Associated angina: without angina Qualified Code(s): I25.10 - Atherosclerotic heart disease of [place] coronary artery without angina pectoris
--- NOTE | 2018-02-22 14:54 | P.DS ---
Date of admission: 02/17/18 20:27 Primary care physician: Do Paulina Mariee Brief History from admission: 82-year-old female with a past medical history significant for CHF, CKD, type 2 diabetes mellitus, hypertension, hypothyroidism and hyperlipidemia presents to the emergency department for the evaluation of weakness, shortness of breath and increased respiratory effort. The patient had a TAVR on 02/16/18 and was discharged to home earlier today. Her daughter observed that she was having difficulty walking into her home when they arrived secondary to bilateral lower extremity weakness. She also was having shortness of breath with increased respiratory effort. She denies any chest pain. No abdominal pain. No nausea/ vomiting/diarrhea. No lateralizing signs/symptoms. No fevers/chills. EMS was called and the patient's pulse ox was in the 70s on scene. Improved with BiPAP. DS: Diagnosis - Discharge Diagnosis (1) Acute respiratory failure Status: Acute (2) Elevated troponin Status: Acute (3) Hypoxemia Status: Acute (4) Acute on chronic diastolic (congestive) heart failure Status: Acute (5) Aortic stenosis Status: Acute (6) Aortic valve regurgitation Status: Acute (7) CAD (coronary artery disease) Status: Acute (8) Diabetes mellitus type 2 in nonobese Status: Acute DS: Summary Hospital Course: 82-year-old female with a past medical history significant for CHF, CKD, type 2 diabetes mellitus, hypertension, hypothyroidism and hyperlipidemia presents to the emergency department for the evaluation of weakness, shortness of breath and increased respiratory effort. The patient had a TAVR on 02/16/18 and was discharged to home earlier that day. Her daughter observed that she was having difficulty walking into her home when they arrived secondary to bilateral lower extremity weakness. She also was having shortness of breath with increased respiratory effort. She denied any chest pain. No abdominal pain. No nausea/ vomiting/diarrhea. No lateralizing signs/symptoms. No fevers/chills. EMS was called and the patient's pulse ox was in the 70s on scene. Improved with BiPAP. The patient also has a history of KOMAL and has compliance issues with CPAP at night. Patient on admission with acute encephalopathy secondary to CO2 retention she was placed on BiPAP every night. Improved significantly. Patient to use her CPAP machine at night every night advised and reinforced compliance with the CPAP use at night. Also cardiology has seen the patient. Echocardiogram which shows ejection fraction 55-60% and Yadira without leak. Patient improved significantly. [facility] to follow-up with PCP and consultants as outpatient. Acute encephalopathy likely secondary to CO2 retention. Resolved, back at baseline. Peripheral neuropathy Depression/anxiety History of bilateral cataract removal Currently on gabapentin 100 mg 3 times daily/we will hold with altered mental status Acetaminophen 650 p.o. every 6 hours as needed fever CT brain revealed left sphenoid sinusitis otherwise unremarkable. Avoid sedatives RESP: KOMAL-compliance issues with CPAP at night? Acute hypercapnic respiratory failure. Resolved. COPD/severe by PFTs 2015 Bipap adjusted to 15/5 at 35% -nasal cannula during the daytime CXR stable Albuterol/ipratropium aerosols every 4 hours with albuterol aerosols every 2 hours as needed for dyspnea On Symbicort twice daily Pulmonary consultation appreciated. Needs to use her CPAP machine every night. Discussed with the patient at length. Reinforce compliance. CV: CAD with DORIAN RCA HLD Hypertension hx severe now s/p TAVR. Normal ejection fraction on echo and Yadira with no leak. Stable Chronic diastolic heart failure Echocardiogram revealed EF 55-60%. Trace MR/TR. PAP 29. TAVR no leak Trending troponin, downtrend from 0.6. Dr. Rico / Dr. Aguilar cards on case Currently on clopidogrel 75 mg daily and aspirin 81 mg daily. Continue Continue atorvastatin 20 mg daily for dyslipidemia Continue metoprolol succinate 12.5 mg daily and lisinopril 10 mg daily for hypertension GI: Ileus History of colonic diverticulosis Pantoprazole for GI prophylaxis Docusate sodium/senna 1 tablet twice daily for bowel regimen n.p.o. except for medications until cleared by speech therapy Fatty liver on ultrasound. Ammonia level less than 10 FEN/RENAL/: CKD Stage II Acute urinary retention Bilateral renal cyst Soto inserted, eventual voiding trials. U/a negative. Trend BMP. Renal ultrasound - Minimal perinephric fluid on the left which is nonspecific. Multiple bilateral renal cysts. No hydronephrosis or solid renal mass. Limited evaluation of the urinary bladder which is nondistended and contains a Soto catheter. Echogenic liver suggesting fatty infiltration or diffuse hepatocellular disease. ENDO: DM Hypothyroidism Low dose aspart insulin sliding scale ac/hs Holding home medications of glipizide 10 mg daily metformin 1000 mg twice daily Continue levothyroxine 125 mcg daily. Noted TSH is 0.341. Normally on 137 mcg daily ID: Left sphenoid sinusitis Monitor for signs and symptomatology infection. We will start on ceftriaxone 1 g IV every 24 hours. Blood cultures 2, UA, sputum and influenza a and B ordered. 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 Monitor CBC daily. Follow trends. MSK: Elevated BMI Osteopenia PT evaluate and treat Weight loss encouraged PROPH: Heparin 5000 subcut q12. Pantoprazole for stress ulcer prophylaxis. Discussed with the patient, ICU nurse, Grazyna ARIES. DC to SNF , patient to use her own cpap machine at SNF. Improved significantly. DC to SNF in stable condition to follow up as OP with PCP and consultants. Patient to use every night her own CPAP. - Time Spent with Patient Total time spent providing and/or coordinating discharge services: Greater than 30 minutes Exam Vital signs: Vital Signs 02/21/18 15:00 02/21/18 16:00 02/21/18 16:01 Temperature 99.0 F Pulse Rate 94 H 103 H 104 H Respiratory Rate 35 H 34 H 34 H Blood Pressure 129/61 95/53 L Pulse Oximetry 97 88 L 88 L 02/21/18 17:00 02/21/18 17:01 02/21/18 18:00 Temperature Pulse Rate 99 H 99 H 96 H Respiratory Rate 32 H 32 H 31 H Blood Pressure 118/56 L 131/62 Pulse Oximetry 02/21/18 19:00 02/21/18 19:14 02/21/18 20:00 Temperature 98.8 F Pulse Rate 101 H 99 H 101 H Respiratory Rate 41 H 28 H 36 H Blood Pressure 129/95 H 149/63 H Pulse Oximetry 100 92 L 02/21/18 20:01 02/21/18 21:00 02/21/18 21:01 Temperature Pulse Rate 102 H 97 H 99 H Respiratory Rate 34 H 38 H 33 H Blood Pressure 149/63 H 133/87 Pulse Oximetry 87 L 91 L 91 L 02/21/18 22:00 02/21/18 23:00 02/21/18 23:01 Temperature Pulse Rate 93 H 91 H 91 H Respiratory Rate 26 H 21 21 Blood Pressure 117/73 158/68 H Pulse Oximetry 92 L 93 L 94 L 02/21/18 23:13 02/22/18 00:00 02/22/18 00:01 Temperature 98.8 F Pulse Rate 93 H 92 H 92 H Respiratory Rate 20 18 22 Blood Pressure 129/58 L 129/58 L Pulse Oximetry 92 L 93 L 02/22/18 01:00 02/22/18 01:01 02/22/18 02:00 Temperature Pulse Rate 92 H 92 H 93 H Respiratory Rate 17 23 23 Blood Pressure 117/56 L 120/55 L Pulse Oximetry 93 L 93 L 89 L 02/22/18 03:00 02/22/18 04:00 02/22/18 04:01 Temperature 98.6 F Pulse Rate 92 H 94 H 94 H Respiratory Rate 17 16 17 Blood Pressure 105/52 L 157/67 H 157/67 H Pulse Oximetry 91 L 88 L 88 L 02/22/18 04:32 02/22/18 05:00 02/22/18 05:01 Temperature Pulse Rate 93 H 100 H 101 H Respiratory Rate 18 29 H 26 H Blood Pressure 137/63 Pulse Oximetry 87 L 87 L 02/22/18 06:00 02/22/18 07:00 02/22/18 07:43 Temperature Pulse Rate 98 H 96 H 94 H Respiratory Rate 25 H 22 27 H Blood Pressure 126/60 137/66 Pulse Oximetry 92 L 95 92 L 02/22/18 08:00 02/22/18 08:01 02/22/18 09:00 Temperature 97.8 F Pulse Rate 100 H 100 H 101 H Respiratory Rate 36 H 28 H 38 H Blood Pressure 149/63 H Pulse Oximetry 87 L 95 87 L 02/22/18 09:01 02/22/18 10:00 02/22/18 11:00 Temperature Pulse Rate 103 H 100 H 104 H Respiratory Rate 34 H 53 H 37 H Blood Pressure 176/66 H Pulse Oximetry 92 L 02/22/18 11:03 02/22/18 12:00 02/22/18 12:15 Temperature 98.0 F Pulse Rate 107 H 98 H 100 H Respiratory Rate 20 37 H 41 H Blood Pressure 139/60 Pulse Oximetry 93 L 02/22/18 13:00 02/22/18 14:00 Temperature Pulse Rate 98 H 99 H Respiratory Rate 13 Blood Pressure 143/63 H Pulse Oximetry Intake & Output 02/21/18 02/22/18 02/22/18 18:59 06:59 18:59 Intake Total 820 / 820 300 / 300 100 / 100 Output Total 500 / 500 725 / 725 Balance 320 / 320 -425 / -425 100 / 100 Weight 80 kg Intake: IV 100 / 100 100 / 100 Rocephin Inj 1,000 MG In NS Inj 100 / 100 100 / 100 100 ML @ 200 mls/hr IV.SIG Q24H [facility] Rx#:[id number] Oral 720 / 720 300 / 300 Output: Urine 75 / 75 Urine Amount (Catheter) 500 / 500 650 / 650 Indwelling Urethral Catheter 500 / 500 Straight 650 / 650 Other: Date of Last Bowel Movement 02/22/18 # Bowel Movements 0 Narrative: GENERAL: Very pleasant 82-year-old female, in no acute distress CARDIOVASCULAR: RRR. S1, S2. No S4. Pansystolic murmur 1 out of 6 noted RESPIRATORY: Few fine crackles appreciated in the bases bilaterally left greater than right. No wheezing. GASTROINTESTINAL: Abdomen obese. Not tender to palpation on my examination. Hypoactive bowel sounds appreciated MUSCULOSKELETAL: Extremities trace bilateral lower extremity edema. No obvious deformities. NEUROLOGICAL: Awake and alert. No obvious cranial nerve deficits. Motor grossly within normal limits. Five out of 5 muscle strength in the arms and legs. Speech normal. Results Procedures completed during hospitalization: No procedures Labs on day of discharge: Labs from last 24 hours 02/22/18 02/22/18 02/22/18 12:27 07:55 03:20 Puncture Site Patient Temperature O2 Saturation ABG pH ABG pCO2 ABG pO2 ABG HCO3 ABG O2 Content ABG Base Excess ABG Methemoglobin Yann Test Hemoglobin Carboxyhemoglobin O2 Delivery Device Liter Flow Inspired O2 Critical Value POC Glucose 182 H 206 H 157 H TSH 02/21/18 02/21/18 02/21/18 21:13 17:42 16:20 Puncture Site Right radial Patient Temperature 98.6 O2 Saturation 89 L* ABG pH 7.44 H ABG pCO2 39 ABG pO2 61 ABG HCO3 26 ABG O2 Content 12.3 ABG Base Excess 2.6 H ABG Methemoglobin 1.2 Yann Test Present Hemoglobin 9.8 L Carboxyhemoglobin 1.8 O2 Delivery Device Nasal cannula Liter Flow 3.00 Inspired O2 32 Critical Value Yes POC Glucose 218 H 194 H TSH 02/21/18 06:03 Puncture Site Patient Temperature O2 Saturation ABG pH ABG pCO2 ABG pO2 ABG HCO3 ABG O2 Content ABG Base Excess ABG Methemoglobin Yann Test Hemoglobin Carboxyhemoglobin O2 Delivery Device Liter Flow Inspired O2 Critical Value POC Glucose TSH 0.750 Preliminary micro results at discharge 02/18/18 19:17 Aerobic Blood Culture - Preliminary Blood - Peripheral No growth in 4 days Anaerobic Blood Culture - Preliminary No growth in 4 days 02/18/18 19:12 Aerobic Blood Culture - Preliminary Blood - Peripheral No growth in 4 days Anaerobic Blood Culture - Preliminary No growth in 4 days - Impressions ITS Impressions Abdomen X-Ray 02/18/18 00:00 CONCLUSION: Mild ileus suspected. No perceptible obstruction. No free air. Abdomen/Bladder Ultrasound 02/18/18 00:00 CONCLUSION: 1. Minimal perinephric fluid on the left which is nonspecific. 2. Multiple bilateral renal cysts. 3. No hydronephrosis or solid renal mass. 4. Limited evaluation of the urinary bladder which is nondistended and contains a Soto catheter. 5. Echogenic liver suggesting fatty infiltration or diffuse hepatocellular disease. Head CT 02/18/18 15:39 CONCLUSION: 1. No acute intracranial findings. 2. Small air-fluid level in left sphenoid sinus, suggesting sinusitis. . Chest X-Ray 02/20/18 06:00 CONCLUSION: No significant change. Discharge Plan - Discharge Disposition Patient Disposition: 03 Discharge to SNF - Discharge Condition Condition: Stable - Discharge Order Discharge Orders: Discharge Order (Routine); Ordered 02/23/18 Ordered By: Julia Ball - Physicians Team Primary Care Provider: Do Paulina Mariee Attending Provider: Julia Ball Other Providers: Samuel Aguilar DO ; [employer] ; Mei Sheikh MD ; Betsy Meyer MD ; Clayton Ramos MD ; [facility] ; [facility], [place]
[2018-02-23] MEDS: Chlorhexidine Gluconate 2% 1 Pack (2 Cloths) TOPICAL SCH (03:12)
[2018-02-23] MEDS: Insulin NovoLOG Aspart Correctional Sugar Inj SQ SCH ×5 (03:12→20:22)
[2018-02-23] MEDS: Levothyroxine 125 MCG Tablet PO SCH (05:50)
[2018-02-23] MEDS: Heparin - SQ 10,000 UNITS/ML Vial SQ SCH ×2 (08:00→20:22)
[2018-02-23] MEDS: Lisinopril 10 MG Tablet PO SCH (08:00)
[2018-02-23] MEDS: Ferrous Sulfate 325 MG Tablet PO SCH (08:00)
[2018-02-23] MEDS: hydroCHLOROthiazide 25 MG Tablet PO SCH (08:00)
[2018-02-23] MEDS: Loratadine 10 MG Tablet PO SCH (08:00)
--- NOTE | 2018-02-23 08:02 | P.PN ---
Subjective Interval history: alert no sob Physical Exam Vital signs: Vital Signs 02/22/18 09:00 02/22/18 09:01 02/22/18 10:00 Temperature Pulse Rate 101 H 103 H 100 H Respiratory Rate 38 H 34 H 53 H Blood Pressure 176/66 H Pulse Oximetry 87 L 92 L 02/22/18 11:00 02/22/18 11:03 02/22/18 12:00 Temperature 98.0 F Pulse Rate 104 H 107 H 98 H Respiratory Rate 37 H 20 37 H Blood Pressure Pulse Oximetry 93 L 02/22/18 12:15 02/22/18 13:00 02/22/18 14:00 Temperature Pulse Rate 100 H 98 H 106 H Respiratory Rate 41 H 13 70 H Blood Pressure 139/60 143/63 H Pulse Oximetry 02/22/18 14:01 02/22/18 15:00 02/22/18 16:00 Temperature 98.2 F Pulse Rate 109 H 97 H 95 H Respiratory Rate 47 H 32 H 16 Blood Pressure 135/95 H 130/60 136/60 Pulse Oximetry 92 L 95 02/22/18 17:00 02/22/18 18:00 02/22/18 19:00 Temperature Pulse Rate 97 H 95 H 96 H Respiratory Rate 28 H 21 35 H Blood Pressure 138/94 H 150/65 H 160/69 H Pulse Oximetry 90 L 86 L 73 L 02/22/18 20:00 02/22/18 20:01 02/22/18 20:17 Temperature 98.7 F Pulse Rate 92 H 92 H Respiratory Rate 18 29 H Blood Pressure 136/63 Pulse Oximetry 94 L 94 L 96 02/22/18 21:00 02/22/18 21:01 02/22/18 22:00 Temperature Pulse Rate 92 H 92 H 92 H Respiratory Rate 30 H 25 H 11 L Blood Pressure 132/54 L 135/63 Pulse Oximetry 91 L 93 L 98 02/22/18 23:00 02/23/18 00:00 02/23/18 01:00 Temperature 98.1 F Pulse Rate 90 89 89 Respiratory Rate 26 H 11 L 25 H Blood Pressure 150/67 H 161/69 H 141/65 H Pulse Oximetry 89 L 93 L 93 L 02/23/18 02:00 02/23/18 02:01 02/23/18 03:00 Temperature Pulse Rate 92 H 93 H 95 H Respiratory Rate 24 33 H 30 H Blood Pressure 143/65 H 119/76 Pulse Oximetry 91 L 84 L 94 L 02/23/18 04:00 02/23/18 06:00 02/23/18 07:40 Temperature 98.0 F Pulse Rate 96 H 96 H Respiratory Rate 21 Blood Pressure 136/62 Pulse Oximetry 96 97 Intake & Output 02/22/18 02/23/18 02/23/18 18:59 06:59 18:59 Intake Total 1060 / 1060 0 / 0 Output Total 400 / 400 350 / 350 Balance 660 / 660 -350 / -350 Weight 80 kg Intake: IV 100 / 100 Rocephin Inj 1,000 MG In NS Inj 100 / 100 100 ML @ 200 mls/hr IV.SIG Q24H [facility] Rx#:[id number] Oral 960 / 960 0 / 0 Output: Urine 400 / 400 350 / 350 Urine Amount (Catheter) 0 / 0 Straight 0 / 0 Other: Date of Last Bowel Movement 02/22/18 02/22/18 # Bowel Movements 2 2 Narrative: GENERAL: 82-year-old female currently resting in bed, in no acute distress CARDIOVASCULAR: RRR. S1, S2. No S4. Pansystolic murmur 1 out of 6 noted RESPIRATORY: Few fine crackles appreciated in the bases bilaterally left greater than right. No wheezing. GASTROINTESTINAL: Abdomen obese. Not tender to palpation on my examination. Hypoactive bowel sounds appreciated MUSCULOSKELETAL: Extremities trace bilateral lower extremity edema. No obvious deformities. NEUROLOGICAL: Awake and alert. No obvious cranial nerve deficits. Motor grossly within normal limits. Five out of 5 muscle strength in the arms and legs. Speech normal. - Urinary Catheter Management Indwelling Urethral Catheter Cath placed during this visit: yes, but has since been removed by the nurse Reason for continuing: Decision to DC catheter Insertion date: 02/18/18 Insertion time: 05:26 Removal date: 02/21/18 Removal time: 17:20 Straight Cath placed during this visit: no Reason for continuing: Not indwelling catheter Results - Labs CBC & Chem 7: 02/21/18 06:03 02/21/18 06:03 Laboratory Results - last 24 hr 02/22/18 02/22/18 02/22/18 07:55 12:27 17:32 POC Glucose 206 H 182 H 185 H 02/22/18 02/23/1802/23/18 20:25 02:58 07:48 POC Glucose 183 H 186 H 195 H Microbiology 02/18/18 19:17 Blood - Peripheral Aerobic Blood Culture - Preliminary No growth in 4 days 02/18/18 19:17 Blood - Peripheral Anaerobic Blood Culture - Preliminary No growth in 4 days 02/18/18 19:12 Blood - Peripheral Aerobic Blood Culture - Preliminary No growth in 4 days 02/18/18 19:12 Blood - Peripheral Anaerobic Blood Culture - Preliminary No growth in 4 days Assessment and Plan - Plan COPD EXACERBATION RESPIRATORY FAILURE KOMAL SUSPECT DM CKD PLAN O2 NEEDED BRONCHODILATORS INCREASE ACTIVITY ok to transfer to rehab
[2018-02-23] MEDS: Pantoprazole Inj 40 MG Vial IV.PUSH SCH (10:35)
[2018-02-23] MEDS: Gabapentin 100 MG Capsule PO SCH ×2 (12:02→17:10)
--- NOTE | 2018-02-23 17:56 | P.PNCA ---
Subjective Interval history: No events overnight Up to the chair without complaints Medications and Allergies Active Medications: Active Medications Acetaminophen (Tylenol) 650 mg PO Q6H PRN PRN Reason: Temp > 100.4 Last Admin: 02/18/18 09:39 Dose: 650 mg Albuterol (Albuterol Neb (Prn)) 2.5 mg NEB Q2HR NEB PRN PRN Reason: DYSPNEA Aspirin (Ecotrin) 81 mg PO DAILY [facility] Last Admin: 02/23/18 08:00 Dose: 81 mg Atorvastatin Calcium (Lipitor) 20 mg PO DAILY [facility] Last Admin: 02/23/18 08:00 Dose: 20 mg Bisacodyl (Dulcolax Supp) 10 mg RECTAL DAILY PRN PRN Reason: SEVERE CONSITIPATION Chlorhexidine Gluconate (Chlorhexidine 2% Cloth) 3 pack TOPICAL DAILY@0400 [facility] Stop: 02/24/18 03:59 Last Admin: 02/23/18 03:12 Dose: Not Given Chlorhexidine Gluconate (Chlorhexidine 2% Cloth) 3 pack TOPICAL DAILY@0400 PRN PRN Reason: Extra cloth needed Stop: 02/24/18 03:59 Clonidine HCl (Catapres) 0.1 mg PO Q6H PRN PRN Reason: Sbp>165, Dbp>90, Hr>65 Last Admin: 02/19/18 18:30 Dose: 0.1 mg Clopidogrel Bisulfate (Plavix) 75 mg PO DAILY [facility] Last Admin: 02/23/18 08:00 Dose: 75 mg Dextrose (D50w Vial) 50 ml IV.PUSH UNSCH PRN PRN Reason: PER HYPOGLYCEMIA PROTOCOL Enalaprilat (Vasotec Inj) 1.25 mg IV.PUSH Q6H PRN PRN Reason: Sbp>165, Dbp>90 Ferrous Sulfate (Ferosul) 325 mg PO DAILY [facility] Last Admin: 02/23/18 08:00 Dose: 325 mg Fluticasone/Vilanterol (Breo Ellipta 100/25 Mcg Inh) 1 puff INH DAILY [facility] Last Admin: 02/23/18 08:01 Dose: 1 puff Gabapentin (Neurontin) 100 mg PO TID [facility] Last Admin: 02/23/18 17:10 Dose: 100 mg Glucagon (Glucagon Inj) 1 mg OTHER PRN PRN PRN Reason: for Hypoglycemia Protocol Heparin Sodium (Porcine) (Heparin Inj) 5,000 units SQ Q12HR [facility] Last Admin: 02/23/18 08:00 Dose: 5,000 units Hydralazine HCl (Apresoline Inj) 10 mg IV.PUSH Q1H PRN PRN Reason: Sbp>165, Dbp>90 Last Admin: 02/20/18 02:43 Dose: 10 mg Hydrochlorothiazide (Hydrodiuril) 12.5 mg PO DAILY [facility] Last Admin: 02/23/18 08:00 Dose: 12.5 mg Ceftriaxone Sodium 1,000 mg/ (Sodium Chloride) 100 mls @ 200 mls/hr IV.SIG Q24H [facility] Last Admin: 02/23/18 10:34 Dose: 200 mls/hr Insulin Aspart (Novolog Insulin Correctional Sugar Inj) 0 unit SQ ACHS AND 3AM [facility]; Protocol Last Admin: 02/23/18 17:10 Dose: 1 unit Labetalol HCl (Trandate Inj) 10 mg IV.PUSH Q1H PRN PRN Reason: Sbp>165, Dbp>90, Hr>65 Levothyroxine Sodium (Synthroid) 125 mcg PO DAILY@0600 [facility] Last Admin: 02/23/18 05:50 Dose: 125 mcg Lisinopril (Prinivil) 10 mg PO DAILY [facility] Last Admin: 02/23/18 08:00 Dose: 10 mg Loratadine (Claritin) 10 mg PO DAILY [facility] Last Admin: 02/23/18 08:00 Dose: 10 mg Metoprolol Succinate (Toprol Xl) 12.5 mg PO DAILY [facility] Last Admin: 02/23/18 08:00 Dose: 12.5 mg Ondansetron HCl (Zofran Inj) 4 mg IV.PUSH Q6H PRN PRN Reason: NAUSEA OR VOMITING Last Admin: 02/20/18 04:37 Dose: 4 mg Pantoprazole Sodium (Protonix Inj) 40 mg IV.PUSH Q24H [facility] Last Admin: 02/23/18 10:35 Dose: 40 mg Pt Own Med: Letrozole 2.5 Mg Tablet 0 each PO DAILY [facility] Sennosides (Senokot) 17.2 mg PO Q12H PRN PRN Reason: Moderate Constipation Sodium Chloride (Ns Flush) 2 ml IV.FLUSH UNSCH PRN PRN Reason: FLUSH AFTER USING IV ACCESS Allergies Allergy/AdvReac Type Severity Reaction Status Date / Time No Known Allergies Allergy Verified 02/16/18 05:43 Home Medications Medication Instructions Recorded Confirmed Type atorvastatin 20 mg PO DAILY 01/19/18 02/17/18 History gabapentin 100 mg PO TID 01/19/18 02/17/18 History glipizide 10 mg PO DAILY 01/19/18 02/17/18 History letrozole 2.5 mg PO DAILY 01/19/18 02/17/18 History levothyroxine 137 mcg PO DAILY 01/19/18 02/17/18 History lisinopril-hydrochlorothiazide 1 tab PO DAILY 01/19/18 02/17/18 History loratadine [Claritin] 10 mg PO DAILY 01/19/18 02/17/18 History metformin 1,000 mg PO BID 01/19/18 02/17/18 History potassium chloride [Klor-Con 10] 10 meq PO DAILY 01/19/18 02/17/18 History Physical Exam Vital signs: Vital Signs 02/22/18 18:00 02/22/18 19:00 02/22/18 20:00 Temperature 98.7 F Pulse Rate 95 H 96 H 92 H Respiratory Rate 21 35 H 18 Blood Pressure 150/65 H 160/69 H Pulse Oximetry 86 L 73 L 94 L 02/22/18 20:01 02/22/18 20:17 02/22/18 21:00 Temperature Pulse Rate 92 H 92 H Respiratory Rate 29 H 30 H Blood Pressure 136/63 Pulse Oximetry 94 L 96 91 L 02/22/18 21:01 02/22/18 22:00 02/22/18 23:00 Temperature Pulse Rate 92 H 92 H 90 Respiratory Rate 25 H 11 L 26 H Blood Pressure 132/54 L 135/63 150/67 H Pulse Oximetry 93 L 98 89 L 02/23/18 00:00 02/23/18 01:00 02/23/18 02:00 Temperature 98.1 F Pulse Rate 89 89 92 H Respiratory Rate 11 L 25 H 24 Blood Pressure 161/69 H 141/65 H Pulse Oximetry 93 L 93 L 91 L 02/23/18 02:01 02/23/18 03:00 02/23/18 04:00 Temperature 98.0 F Pulse Rate 93 H 95 H 96 H Respiratory Rate 33 H 30 H 21 Blood Pressure 143/65 H 119/76 136/62 Pulse Oximetry 84 L 94 L 96 02/23/18 06:00 02/23/18 07:40 02/23/18 08:00 Temperature 97.8 F Pulse Rate 96 H 93 H Respiratory Rate 37 H Blood Pressure 129/62 Pulse Oximetry 97 93 L 02/23/18 10:00 02/23/18 12:00 02/23/18 14:00 Temperature 98.0 F Pulse Rate 95 H 91 H 94 H Respiratory Rate 8 L Blood Pressure 118/56 L Pulse Oximetry 89 L 02/23/18 16:00 Temperature 98.5 F Pulse Rate 85 Respiratory Rate 39 H Blood Pressure 138/56 L Pulse Oximetry 95 Intake & Output 02/22/18 02/23/18 02/23/18 18:59 06:59 18:59 Intake Total 1060 / 1060 0 / 0 Output Total 400 / 400 350 / 350 Balance 660 / 660 -350 / -350 Weight 80 kg Intake: IV 100 / 100 Rocephin Inj 1,000 MG In NS Inj 100 / 100 100 ML @ 200 mls/hr IV.SIG Q24H [facility] Rx#:[id number] Oral 960 / 960 0 / 0 Output: Urine 400 / 400 350 / 350 Urine Amount (Catheter) 0 / 0 Straight 0 / 0 Other: Date of Last Bowel Movement 02/22/18 02/22/18 02/23/18 # Bowel Movements 2 2 Narrative: GENERAL: 82-year-old female currently resting in bed, in no acute distress CARDIOVASCULAR: RRR. S1, S2. No S4. Pansystolic murmur 1 out of 6 noted RESPIRATORY: Few fine crackles appreciated in the bases bilaterally left greater than right. No wheezing. GASTROINTESTINAL: Abdomen obese. Not tender to palpation on my examination. Hypoactive bowel sounds appreciated MUSCULOSKELETAL: Extremities trace bilateral lower extremity edema. No obvious deformities. NEUROLOGICAL: Awake and alert. No obvious cranial nerve deficits. Motor grossly within normal limits. Five out of 5 muscle strength in the arms and legs. Speech normal. - Urinary Catheter Management Indwelling Urethral Catheter Cath placed during this visit: yes, but has since been removed by the nurse Reason for continuing: Decision to DC catheter Insertion date: 02/18/18 Insertion time: 05:26 Removal date: 02/21/18 Removal time: 17:20 Straight Cath placed during this visit: no Reason for continuing: Not indwelling catheter Results 02/21/18 06:03 02/21/18 06:03 Intake and Output 02/23/18 02/23/18 02/23/18 06:59 14:59 22:59 Intake Total 0 / 0 Output Total 350 / 350 Balance -350 / -350 Intake: Oral 0 / 0 Output: Urine 350 / 350 Urine Amount (Catheter) 0 / 0 Straight 0 / 0 Other: Date of Last Bowel Movement 02/22/18 02/23/18 02/23/18 # Bowel Movements 2 Weight 80 kg Assessment and Plan - Assessment (1) Acute respiratory failure Code(s): J96.00 - Acute respiratory failure, unspecified whether with hypoxia or hypercapnia Status: Acute (2) Aortic stenosis Code(s): I35.0 - Nonrheumatic aortic (valve) stenosis Status: Acute (3) CAD (coronary artery disease) Code(s): I25.10 - Atherosclerotic heart disease of [place] coronary artery without angina pectoris Status: Acute (4) Diastolic CHF Code(s): I50.30 - Unspecified diastolic (congestive) heart failure Status: Acute (5) S/p TAVR (transcatheter aortic valve replacement), bioprosthetic Code(s): Z95.3 - Presence of xenogenic heart valve Status: Acute (6) Acute on chronic diastolic (congestive) heart failure Code(s): I50.33 - Acute on chronic diastolic (congestive) heart failure Status : Acute (7) Elevated troponin Code(s): R74.8 - Abnormal levels of other serum enzymes Status: Acute (8) Hypoxemia Code(s): R09.02 - Hypoxemia Status: Acute - Plan 1) Acute respiratory failure Most likely CO2 retention Mildly diuresing, which may be a small component of SOB 2) Encephalopathy due to CO2 retention Resolved 3) Echo showing normal functioning TAVR valve 4) Con't on ASA/Plavix for TAVR and previous PCI 5) Up out of bed to chair as much as possible PT ordered, up to the chair 6) Cardiovascularly stable for discharge to rehab today (2) Aortic stenosis Qualifiers: (3) CAD (coronary artery disease) Qualifiers: Coronary Disease-Associated Artery/Lesion type: [place] artery [place] vs. transplanted heart: [place] heart Associated angina: without angina Qualified Code(s): I25.10 - Atherosclerotic heart disease of [place] coronary artery without angina pectoris
[2018-02-24] MEDS: Insulin NovoLOG Aspart Correctional Sugar Inj SQ SCH ×2 (03:15→08:18)
[2018-02-24 04:10] VITALS: BP 130/69; RESP 23; TEMP 98
[2018-02-24] MEDS: Levothyroxine 125 MCG Tablet PO SCH (06:08)
[2018-02-24] MEDS: Loratadine 10 MG Tablet PO SCH (08:18)
[2018-02-24] MEDS: hydroCHLOROthiazide 25 MG Tablet PO SCH (08:19)
[2018-02-24] MEDS: Ferrous Sulfate 325 MG Tablet PO SCH (08:19)
[2018-02-24] MEDS: Lisinopril 10 MG Tablet PO SCH (08:19)
[2018-02-24] MEDS: Heparin - SQ 10,000 UNITS/ML Vial SQ SCH (08:20)
[2018-02-24] MEDS: Gabapentin 100 MG Capsule PO SCH (08:20)
[2018-02-24 09:38] VITALS: O2SAT 92
[2018-02-24] MEDS: Pantoprazole Inj 40 MG Vial IV.PUSH SCH (09:44)
[2018-02-24 10:47] VITALS: PULSE 87
== END 2018-02-24 10:20 ==
LOC: NEPC 18:09 → NEDA 20:27 → HCIS 23:00 → HIMC 02-18 04:40
PROVIDERS: ADMIT Hospitalist; ATTEND Hospitalist